=== PATIENT | male | born 1940 | race Caucasian/White ===

== ENCOUNTER 2017-11-25 13:02 | Emergency (ER) | payer OTHER ==
[2017-11-25 13:25] VITALS: TEMP 97.7
[2017-11-25] MEDS ORDERED: Morphine 5 MG/ML SYRINGE IVP STA (13:50)
[2017-11-25] MEDS ORDERED: Sodium Chloride 0.9% 500 ML IV STA (13:50)
--- NOTE | 2017-11-25 13:59 | ED PDOC ---
Arrival/HPI - General Chief Complaint: Abdominal Pain Time Seen by Provider: 11/25/17 13:50 Historian: Patient - History of Present Illness Narrative History of Present Illness (Text): 11/25/17 14:00 A 77 year old male, whose past medical history includes hyperlipidemia, hypertension, BPH, presents to the emergency department for < 1 day onset of general abdominal discomfort and generalized not feeling well/easily fatigued with concerning chills and tremors. The patient denies any subjective fever. He reports 3-4 episodes of non-bloody vomiting and 5-6 episodes of non-bloody diarrhea. + poor appetite is described; The patient denies any recent usage of antibiotics, chest pain, shortness of breath, palpitations, urinary changes, LOC , or any other complaints at this time. The patient is here for further evaluation and denies any other complaints Last colonoscopy was late last year and findings were normal. Time/Duration: Other (< 1 day ) Symptom Onset: Sudden Symptom Course: Unchanged Severity Level: Mild Activities at Onset: Light Context: Home Past Medical History - Provider Review Nursing Documentation Reviewed: Yes - Travel History Have you recently traveled outside [place] w/in the past 3 mons?: No - Past History Past History: No Previous - Infectious Disease Hx of Infectious Diseases: None - Cardiac Hx Cardiac Disorders: No - Pulmonary Hx Respiratory Disorders: No - Neurological Hx Neurological Disorder: No - HEENT Hx Cataracts: Yes - Renal Hx Renal Disorder: No - Endocrine/Metabolic Hx Endocrine Disorders: No - Hematological/Oncological Hx Blood Disorders: No - Integumentary Other/Comment: Rash - Musculoskeletal/Rheumatological Hx Musculoskeletal Disorders: No - Gastrointestinal Hx Gastrointestinal Disorders: No - Genitourinary/Gynecological Hx Prostate Problems: Yes - Psychiatric Hx Psychophysiologic Disorder: No Hx Substance Use: No - Surgical History Hx Cataract Extraction: Yes - Anesthesia Hx Anesthesia: Yes Hx Anesthesia Reactions: No Hx Malignant Hyperthermia: No Family/Social History - Physician Review Nursing Documentation Reviewed: Yes Family/Social History: No Known Family HX Smoking Status: Never Smoked Hx Alcohol Use: No Hx Substance Use: No Hx Substance Use Treatment: No Allergies/Home Meds Allergies/Adverse Reactions: Allergies No Known Allergies Allergy (Verified 11/25/17 13:12) Home Medications: Home Meds Medication Instructions Recorded Confirmed Lisinopril [Prinivil] 5 mg PO DAILY 11/25/17 11/25/17 Simvastatin [Zocor] 20 mg PO HS 11/25/17 11/25/17 Tamsulosin [Flomax] 0.4 mg PO DAILY 11/25/17 11/25/17 Review of Systems - Physician Review All systems were reviewed & negative as marked: Yes - Review of Systems Constitutional: Other (chills/tremors). absent: Fevers Respiratory: absent: SOB Cardiovascular: absent: Chest Pain Gastrointestinal: Abdominal Pain, Diarrhea, Nausea, Vomiting. absent: Appetite Changes, Hematochezia, Hematemesis Genitourinary Male: Normal Musculoskeletal: Normal Skin: Normal Neurological: Dizziness, Other (weakness) Endocrine: absent: Diaphoresis Hemo/Lymphatic: Normal Psychiatric: Normal Physical Exam Vital Signs Reviewed: Yes Vital Signs Temp Pulse Resp BP Pulse Ox 11/25/17 17:03 80 18 118/68 99 11/25/17 15:03 78 18 120/72 98 11/25/17 13:08 97.7 F 84 20 151/78 H 98 Temperature: Afebrile Blood Pressure: Hypertensive Pulse: Regular Respiratory Rate: Normal Appearance: Positive for: Well-Appearing, Non-Toxic, Uncomfortable, Other (alert /awake, GCS = 15, oriented x 3, resting in bed, cooperative, follows commands with ease) Pain Distress: None Mental Status: Positive for: Alert and Oriented X 3 - Systems Exam Head: Present: Atraumatic, Normocephalic Pupils: Present: PERRL, Other (no nystagmus, no photophobia, sclera anicteric) Extroacular Muscles: Present: EOMI Conjunctiva: Present: Normal Ears: Present: Normal Mouth: Present: Dry, Other (fair dentitions, no drooling/stridor, no exudate/ lesions, uvula/tonguge are midline) Pharnyx: Present: Normal Nose (External): Present: Atraumatic Nose (Internal): Present: Normal Inspection Neck: Present: Normal Range of Motion, Trachea Midline. No: MIDLINE TENDERNESS Respiratory/Chest: Present: Clear to Auscultation, Good Air Exchange, Other ( CTA b/l, no w/r/r, no accesory muscle use noted, no tachypenia). No: Respiratory Distress, Accessory Muscle Use Cardiovascular: Present: Regular Rate and Rhythm, Normal S1, S2. No: Murmurs Abdomen: Present: Normal Bowel Sounds, Other (diffuse mid b/l abd tenderness, mild mcburney's point tenderness, no spaulding's sign, well nourished male, no masses/rebound/guarding/rigidity). No: Tenderness, Distention, Peritoneal Signs Back: Present: Normal Inspection, Other (no midline tenderness, no CVAT b/l, no gross deformities). No: CVA Tenderness Upper Extremity: Present: Normal Inspection, Normal ROM, NORMAL PULSES, Neurovascularly Intact, Capillary Refill < 2s. No: Cyanosis, Edema Lower Extremity: Present: Normal Inspection, NORMAL PULSES, Neurovascularly Intact. No: Edema Neurological: Present: GCS=15, CN II-XII Intact, Speech Normal Skin: Present: Warm, Dry, Normal Color. No: Rashes Psychiatric: Present: Alert, Oriented x 3 Medical Decision Making ED Course and Treatment: 11/25/17 14:01 Impression: A 77 year old male with abdominal pain, nausea, vomiting, and diarrhea. I have considered all differential diagnoses regarding patients chief medical complaints/clinical findings which include but are not limited to: r/o diverticulitis, appy, gastroenteritis; dehydration Plan: -- VBG -- AB & PEL CT -- Chest X-ray -- Labs -- Pepcid, morphine, zofran, IV Fluids -- Urinalysis -- Reassess and disposition Progress Notes: 11/25/17 14:50 CT of Abdomen/pelvis reviewed by radiologist, shows no acute intra-abdominal findings 11/25/17 16:43 pt felt some improvement, has a small amount of headache awaiting pt's U/A results 11/25/17 18:08 Chest X-ray reviewed by radiologist, shows no active disease. 11/25/17 18:19 pt tolerated po well pt felt some improvement I spoke to Dr Pathak consulting utility forester for dr Rebollar who admits for Dr Rider, made aware of pt's medical presentation, if pt's condition require admission, Dr Pathak would like to contacted again pt is comfortable, NAD pt is given option to possibly discharge home vs admit as observation for monitor till the morning pt states he would rather be at home; family agrees pt/family are made aware of pt's medical results pt is encouraged fluids pt is encouraged bland diet pt will f/u as directed pt will be discharged home I spoke to Dr Rider, made aware of pt's medical results, agrees with ED mgt/txt , and if pt is comfortable going home, pt can f/u with Dr Rider in the office this coming week pt is made aware of my discussions with Dr Rider Re-evaluation Time: 16:42 Reassessment Condition: Improving,but remains with symptoms - Lab Interpretations Lab Results: 11/25/17 14:03 11/25/17 14:03 Lab Results 11/25/17 17:00: Urine Color Yellow, Urine Appearance Clear, Urine pH 6.5, Ur Specific [place] 1.010, Urine Protein Trace H, Urine Glucose (UA) Negative, Urine Ketones Negative, Urine Blood Negative, Urine Nitrate Negative, Urine Bilirubin Negative, Urine Urobilinogen 0.2, Ur Leukocyte Esterase Negative, Urine RBC Negative, Urine WBC 1 - 3, Ur Epithelial Cells 1 - 3, Urine Bacteria Few 11/25/17 14:10: pO2 40, VBG pH 7.29 L, VBG pCO2 52.0, VBG HCO3 25.0, VBG Total CO2 26.6, VBG O2 Sat (Calc) 80.9 H, VBG Base Excess -2.3 L, VBG Potassium 3.5 L , Glucose 123 H, Lactate 1.9, FiO2 21.0, Sodium 138.0, Chloride 105.0, Venous Blood Potassium 3.5 L 11/25/17 14:03: Sodium 140, Potassium 3.6, Chloride 103, Carbon Dioxide 26, Anion Gap 15, BUN 23 H, Creatinine 1.0, Est GFR ( Amer) > 60, Est GFR ( Non-Af Amer) > 60, Random Glucose 121 H, Calcium 9.6, Total Bilirubin 1.2, AST 27, ALT 55, Alkaline Phosphatase 61, Total Protein 7.2, Albumin 4.2, Globulin 3.0, Albumin/Globulin Ratio 1.4, Lipase 206 11/25/17 14:03: WBC 17.4 H, RBC 4.53, Hgb 16.6, Hct 48.0, MCV 106.0 H, MCH 36.6 H, MCHC 34.6, RDW 13.8, Plt Count 189, MPV 10.3, Gran % 91.2 H, Lymph % (Auto) 2.9 L, Nobles % (Auto) 5.3, Eos % (Auto) 0.5 L, Baso % (Auto) 0.1, Gran # 15.89 H , Lymph # (Auto) 0.5 L, Nobles # (Auto) 0.9 H, Eos # (Auto) 0.1, Baso # (Auto) 0.02, Neutrophils % (Manual) 92 H, Band Neutrophils % 2, Lymphocytes % (Manual) 2 L, Monocytes % (Manual) 4, Platelet Evaluation Normal I have reviewed the lab results: Yes Interpretation: Abnormal lab values (elevated WBCs; mild dehydration) - RAD Interpretation Narrative RAD Interpretations (Text): 11/25/17 16:43 PROCEDURE: CT Abdomen and Pelvis with contrast HISTORY: mid abd pain, diarrhea/vomiting x 1 day COMPARISON: None. TECHNIQUE: Contrast dose: 100 cc of Omni 350 Radiation dose: Total exam DLP = 480 mGy-cm. This CT exam was performed using one or more of the following dose reduction techniques: Automated exposure control, adjustment of the mA and/or kV according to patient size, and/or use of iterative reconstruction technique. FINDINGS: LOWER THORAX: Unremarkable. LIVER: Unremarkable. No gross lesion or ductal dilatation. GALLBLADDER AND BILE DUCTS: Unremarkable. PANCREAS: Unremarkable. No gross lesion or ductal dilatation. SPLEEN: Unremarkable. ADRENALS: Unremarkable. No mass. KIDNEYS AND URETERS: Unremarkable. No hydronephrosis. No solid mass. VASCULATURE: Unremarkable. No aortic aneurysm. BOWEL: Unremarkable. No obstruction. No gross mural thickening. Fluid-filled loops of small bowel are seen. There is no mural thickening. The colon is unremarkable APPENDIX: Normal appendix. PERITONEUM: Unremarkable. No free fluid. No free air. LYMPH NODES: Unremarkable. No enlarged lymph nodes. BLADDER: Unremarkable. REPRODUCTIVE: Unremarkable. BONES: There is a moderate compression fracture of L2. This is probably chronic OTHER FINDINGS: None. IMPRESSION: No acute intra-abdominal findings 11/25/17 18:08 11/25/17 18:25 HISTORY: n/v/d COMPARISON: No prior. TECHNIQUE: Chest PA and lateral FINDINGS: LUNGS: No active pulmonary disease. PLEURA: No significant pleural effusion identified. No pneumothorax apparent. CARDIOVASCULAR: Normal. OSSEOUS STRUCTURES: No significant abnormalities. VISUALIZED UPPER ABDOMEN: Normal. OTHER FINDINGS: None. IMPRESSION: No active disease. Radiology Orders: 11/25/17 13:51 ABD & PELVIS IV CONTRAST ONLY [CT] Stat 11/25/17 13:52 CHEST TWO VIEWS (PA/LAT) [RAD] Stat Condenser Tester: Radiologist - EKG Interpretation EKG Interpretation (Text): 11/25/17 14:41 Sinus melany at 60 bpm, normal axis, no ectopy, incomplete RBBB, no st changes, ABNL EKG; no old ekg to compare with Interpreted by ED Physician: Yes Type: 12 lead EKG Comparison: No previous EKG avail. - Medication Orders Current Medication Orders: Discontinued Medications Famotidine (Pepcid) 20 mg IVP STAT STA Stop: 11/25/17 13:51 Last Admin: 11/25/17 14:04 Dose: 20 mg IVP Administration Document 11/25/17 14:04 EWO (Rec: 11/25/17 14:04 O [id number]) Charges for Administration # of IVP Administrations 1 Sodium Chloride (Sodium Chloride 0.9%) 500 mls @ 1,000 mls/hr IV .Q30M STA Stop: 11/25/17 14:19 Last Admin: 11/25/17 14:03 Dose: 1,000 mls/hr eMAR Start Stop Document 11/25/17 14:03 EWO (Rec: 11/25/17 14:04 O [id number]) Intravenous Solution Start Date 11/25/17 Start Time 14:03 End Date 11/25/17 End time 14:33 Total Infusion Time 30 Morphine Sulfate (Morphine) 4 mg IVP STAT STA Stop: 11/25/17 13:51 Last Admin: 11/25/17 14:04 Dose: 4 mg IVP Administration Document 11/25/17 14:04 EWO (Rec: 11/25/17 14:04 O [id number]) Charges for Administration # of IVP Administrations 1 Ondansetron HCl (Zofran Inj) 4 mg IVP STAT STA Stop: 11/25/17 13:51 Last Admin: 11/25/17 14:04 Dose: 4 mg IVP Administration Document 11/25/17 14:04 EWO (Rec: 11/25/17 14:04 EWO [id number]) Charges for Administration # of IVP Administrations 1 - Scribe Statement The provider has reviewed the documentation as recorded by the Shanteibvenecia Puckett Provider Scribe Attestation: All medical record entries made by the Scribe were at my direction and personally dictated by me. I have reviewed the chart and agree that the record accurately reflects my personal performance of the history, physical exam, medical decision making, and the department course for this patient. I have also personally directed, reviewed, and agree with the discharge instructions and disposition. Disposition/Present on Arrival - Present on Arrival Any Indicators Present on Arrival: No History of DVT/PE: No History of Uncontrolled Diabetes: No Urinary Catheter: No History of Decub. Ulcer: No History Surgical Site Infection Following: None - Disposition Have Diagnosis and Disposition been Completed?: Yes Diagnosis: Epigastric abdominal pain, Diarrhea, Vomiting, Dehydration Disposition: HOME/ ROUTINE Disposition Time: 18:14 Patient Plan: Discharge Patient Problems: Current Active Problems Problem Status Onset Dehydration Acute Diarrhea Acute Epigastric abdominal pain Acute Vomiting Acute Condition: STABLE Discharge Instructions (ExitCare): Dehydration (ED), Epigastric Pain (ED), Acute Diarrhea (ED), Acute Nausea and Vomiting (ED) Print Language: NEPALI Additional Instructions: Make sure to see your doctor in 1-2 days BLAND DIET is encouraged DRINK PLENTY OF FLUIDS take your medications as prescribed RETURN TO ED IF worse pain, cant breath, persistent vomiting, high fever >101- 102 for hours, altered behavior, bloody diarrhea, unable to urinate, heavy/ persistent bleeding, passing out, chest pain, or other medical emergencies Prescriptions: Famotidine [Pepcid] 20 mg PO BID #14 tab Ondansetron ODT [Zofran ODT] 4 mg PO TID PRN #12 odt PRN Reason: Nausea/Vomiting Referrals: Tye Rider MD [Primary Care Provider] - Follow up with primary Forms: [employer] ([place])
[2017-11-25 14:19] LABS: BASO # 0.02 K/mm3 (0.0-2.0); BASO % 0.1 % (0.0-3.0); EOS # 0.1 (0.0-0.7); EOS % 0.5 % (1.5-5.0); GRAN # 15.89 (1.4-6.5); GRAN % 91.2 % (50.0-68.0); HEMOGLOBIN 16.6 g/dL (14.0-18.0); LYMPH # 0.5 (1.2-3.4); LYMPH % 2.9 % (22.0-35.0); MEAN CORPUSCULAR HEMOGLOBIN 36.6 pg (25.0-35.0); MEAN CORPUSCULAR HGB CONC 34.6 g/dl (31.0-37.0); MEAN PLATELET VOLUME 10.3 fl (7.0-11.0); MONO # 0.9 (0.1-0.6); MONO % 5.3 % (1.0-6.0); PLATELET COUNT 189 10^3/uL (120.0-450.0); RBC 4.53 10^6/uL (3.5-6.1); RED CELL DISTRIBUTION WIDTH 13.8 % (11.5-14.5); WHITE BLOOD COUNT 17.4 10^3/ul (4.5-11.0)
[2017-11-25 14:27] LABS: ALB/GLOB RATIO 1.4 (1.1-1.8); ALBUMIN 4.2 g/dL (3.0-4.8); ALT/SGPT 55 U/L (7-56); AST/SGOT 27 U/L (17-59); BLOOD UREA NITROGEN 23 mg/dL (7-21); CALCIUM 9.6 mg/dL (8.4-10.5); GFR AFRICAN-AMERICAN > 60; GFR NON-AFRICAN AMERICAN > 60; LIPASE 206 U/L (23-300)
[2017-11-25 14:33] LABS: VENOUS BLOOD GAS BASE EXCESS -2.3 mmol/L (0.0-2.0); VENOUS BLOOD GAS PO2 40 mm/Hg (30-55); VENOUS BLOOD PH 7.29 (7.32-7.43)
[2017-11-25] MEDS ORDERED: Iohexol 350 MG/100 ML VIAL ONE (15:31)
[2017-11-25 15:33] LABS: BAND 2 % (0-2); NEUTROPHIL 92 % (50.0-70.0)
[2017-11-25 15:34] LABS: LYMPHOCYTE 2 % (22.0-35.0); MONOCYTE 4 % (1.0-6.0); PLATELET ESTIMATE NORMAL (NORMAL)
--- NOTE | 2017-11-25 16:30 | CT ---
PROCEDURE: CT Abdomen and Pelvis with contrast HISTORY: mid abd pain, diarrhea/vomiting x 1 day COMPARISON: None. TECHNIQUE: Contrast dose: 100 cc of Omni 350 Radiation dose: Total exam DLP = 480 mGy-cm. This CT exam was performed using one or more of the following dose reduction techniques: Automated exposure control, adjustment of the mA and/or kV according to patient size, and/or use of iterative reconstruction technique. FINDINGS: LOWER THORAX: Unremarkable. LIVER: Unremarkable. No gross lesion or ductal dilatation. GALLBLADDER AND BILE DUCTS: Unremarkable. PANCREAS: Unremarkable. No gross lesion or ductal dilatation. SPLEEN: Unremarkable. ADRENALS: Unremarkable. No mass. KIDNEYS AND URETERS: Unremarkable. No hydronephrosis. No solid mass. VASCULATURE: Unremarkable. No aortic aneurysm. BOWEL: Unremarkable. No obstruction. No gross mural thickening. Fluid-filled loops of small bowel are seen. There is no mural thickening. The colon is unremarkable APPENDIX: Normal appendix. PERITONEUM: Unremarkable. No free fluid. No free air. LYMPH NODES: Unremarkable. No enlarged lymph nodes. BLADDER: Unremarkable. REPRODUCTIVE: Unremarkable. BONES: There is a moderate compression fracture of L2. This is probably chronic OTHER FINDINGS: None. IMPRESSION: No acute intra-abdominal findings
--- NOTE | 2017-11-25 16:56 | RAD ---
HISTORY: n/v/d COMPARISON: No prior. TECHNIQUE: Chest PA and lateral FINDINGS: LUNGS: No active pulmonary disease. PLEURA: No significant pleural effusion identified. No pneumothorax apparent. CARDIOVASCULAR: Normal. OSSEOUS STRUCTURES: No significant abnormalities. VISUALIZED UPPER ABDOMEN: Normal. OTHER FINDINGS: None. IMPRESSION: No active disease.
[2017-11-25 17:14] LABS: PH,URINE 6.5 (4.7-8.0); URINE BILIRUBIN NEGATIVE (NEGATIVE); URINE BLOOD NEGATIVE (NEGATIVE); URINE GLUCOSE (UA) NEGATIVE (NEGATIVE); URINE LEUKOCYTE ESTERASE NEGATIVE Leu/uL (NEGATIVE); URINE NITRATE NEGATIVE (NEGATIVE); URINE PROTEIN TRACE mg/dL (<30 mg/dL); URINE UROBILINOGEN 0.2 E.U./dL (<1 E.U./dL)
[2017-11-25 17:18] LABS: URINE APPEARANCE CLEAR (CLEAR); URINE COLOR YELLOW (YELLOW)
[2017-11-25 17:27] LABS: URINE BACTERIA FEW (NEG); URINE RBC NEGATIVE /hpf (0-2)
[2017-11-25 17:56] VITALS: BP 118/68; PULSE 80; RESP 18; O2SAT 99
--- NOTE | 2017-11-26 11:56 | CARD ---
APPROVED REPORT EKG Measurement Heart [id number] <Conclusion> Sinus bradycardia Incomplete right bundle branch block Borderline ECG
== END 2017-11-25 18:26 | disposition home or self-care (01) ==
LOC: ED 13:02
DX: E86.0 Dehydration (principal); R10.13 Epigastric pain; R19.7 Diarrhea, unspecified; R11.2 Nausea with vomiting, unspecified; I10 Essential (primary) hypertension; E78.5 Hyperlipidemia, unspecified
CPT/HCPCS: 71046; 74177; 80053; 81001; 82803; 83690; 85025; 87086; 93005; 96374; 96375; 99284; J2270; J2405; J7040; Q9967

== ENCOUNTER 2018-03-02 05:45 | Emergency (ER) | payer MEDICARE, OTHER ==
--- NOTE | 2018-03-02 07:42 | ED PDOC ---
Arrival/HPI - General Chief Complaint: ENT Problem Time Seen by Provider: 03/02/18 07:15 Historian: Patient - History of Present Illness Narrative History of Present Illness (Text): 03/02/18 07:39 77 year old male, whose past medical history includes hyperlipidemia, hypertension, BPH, who presents to the emergency department complaining of persistent bleeding to a wound since 22:00 last night. Patient states that he supposedly saw Dr. Guido who took a mole off of his neck earlier this week and has been bleeding since last night. At present, patient is minimally bleeding in the emergency department. Patient denies any fevers, chills, or any other complaints a this time. Time/Duration: Other (since 22:00 last night) Symptom Course: Unchanged Activities at Onset: Light Context: Home Past Medical History - Provider Review Nursing Documentation Reviewed: Yes - Past History Past History: No Previous - Infectious Disease Hx of Infectious Diseases: None - Cardiac Hx Cardiac Disorders: No Hx Hypertension: Yes - Pulmonary Hx Respiratory Disorders: No - Neurological Hx Neurological Disorder: No - HEENT Hx Cataracts: Yes - Renal Hx Renal Disorder: No - Endocrine/Metabolic Hx Endocrine Disorders: No - Hematological/Oncological Hx Blood Disorders: No - Integumentary Other/Comment: Rash - Musculoskeletal/Rheumatological Hx Musculoskeletal Disorders: No - Gastrointestinal Hx Gastrointestinal Disorders: No - Genitourinary/Gynecological Hx Prostate Problems: Yes - Psychiatric Hx Psychophysiologic Disorder: No Hx Substance Use: No - Surgical History Hx Cataract Extraction: Yes - Anesthesia Hx Anesthesia: Yes Hx Anesthesia Reactions: No Hx Malignant Hyperthermia: No Family/Social History - Physician Review Nursing Documentation Reviewed: Yes Family/Social History: No Known Family HX Smoking Status: Never Smoked Hx Alcohol Use: No Hx Substance Use: No Hx Substance Use Treatment: No Allergies/Home Meds Allergies/Adverse Reactions: Allergies No Known Allergies Allergy (Verified 03/02/18 06:22) Home Medications: Home Meds Medication Instructions Recorded Confirmed Lisinopril [Prinivil] 5 mg PO DAILY 11/25/17 03/02/18 Simvastatin [Zocor] 20 mg PO HS 11/25/17 03/02/18 Tamsulosin [Flomax] 0.4 mg PO DAILY 11/25/17 03/02/18 Review of Systems - Physician Review All systems were reviewed & negative as marked: Yes - Review of Systems Constitutional: absent: Fevers, Night Sweats Eyes: absent: Vision Changes ENT: absent: Hearing Changes Respiratory: absent: SOB, Cough Cardiovascular: absent: Chest Pain Gastrointestinal: absent: Abdominal Pain Genitourinary Male: absent: Dysuria Musculoskeletal: absent: Arthralgias Skin: Other (Bleeding wound to base of neck) Neurological: absent: Headache, Dizziness Endocrine: absent: Diaphoresis Hemo/Lymphatic: absent: Adenopathy Physical Exam Vital Signs Reviewed: Yes Vital Signs Temp Pulse Resp BP Pulse Ox 03/02/18 08:39 98.2 F 80 16 160/78 H 98 03/02/18 08:37 98.2 F 80 18 160/76 H 97 03/02/18 06:15 98.0 F 88 18 149/89 98 Temperature: Afebrile Blood Pressure: Normal Pulse: Regular Respiratory Rate: Normal Appearance: Positive for: Well-Appearing, Non-Toxic, Comfortable Pain Distress: None Mental Status: Positive for: Alert and Oriented X 3 - Systems Exam Skin: Present: Laceration (2.5 laceration to the midline base of neck, right over sternal notch) Medical Decision Making ED Course and Treatment: 03/02/18 07:30 Impression: 77 year old male complaining of persistent bleeding to a wound at the base of his neck since 22:00 last night. Plan: -- Suture procedure -- Reassess and disposition Prior Visits: Notes and results from previous visits were reviewed. Patient was last seen in the emergency department on 11/23/17 for < 1 day onset of general abdominal discomfort and generalized not feeling well/easily fatigued with concerning chills and tremors. Progress Notes: 03/02/18 07:[address] Guido, oncologist, who states that he does not know the patient but advises to suture the wound. - Medication Orders Current Medication Orders: Discontinued Medications Lidocaine HCl (Lidocaine 1% (20ml)) 20 ml SC STAT STA Stop: 03/02/18 07:50 - Scribe Statement The provider has reviewed the documentation as recorded by the Radha Freire Provider Scribe Attestation: All medical record entries made by the Scribe were at my direction and personally dictated by me. I have reviewed the chart and agree that the record accurately reflects my personal performance of the history, physical exam, medical decision making, and the department course for this patient. I have also personally directed, reviewed, and agree with the discharge instructions and disposition. Disposition/Present on Arrival - Present on Arrival Any Indicators Present on Arrival: No History of DVT/PE: No History of Uncontrolled Diabetes: No Urinary Catheter: No History of Decub. Ulcer: No History Surgical Site Infection Following: None - Disposition Have Diagnosis and Disposition been Completed?: Yes Diagnosis: Post-op bleeding Disposition: HOME/ ROUTINE Disposition Time: 08:27 Patient Plan: Discharge Condition: GOOD Discharge Instructions (ExitCare): Laceration Repair Additional Instructions: Please follow up with the doctor who took off the mole. The stitch can come out in 7 days (next Monday or the following Monday). Return to us if any problems. Best- Dr. Graeme Bazzi Referrals: Tye Rider MD [Primary Care Provider] - Follow up with primary Forms: [employer] ([place])
[2018-03-02] MEDS ORDERED: Lidocaine 1% Inj (20ml) SC STA (07:49)
[2018-03-02] MEDS ORDERED: Lidocaine 1% Inj (20ml) ONE (07:49)
[2018-03-02 08:38] VITALS: PULSE 80; TEMP 98.2
[2018-03-02 08:40] VITALS: BP 160/78; RESP 16; O2SAT 98
== END 2018-03-02 08:39 | disposition home or self-care (01) ==
LOC: ED 05:45
DX: L76.22 Postprocedural hemorrhage of skin and subcutaneous tissue following other procedure (principal); E78.5 Hyperlipidemia, unspecified; I10 Essential (primary) hypertension; N40.0 Benign prostatic hyperplasia without lower urinary tract symptoms

== ENCOUNTER 2018-05-15 13:47 | Emergency (ER) | payer MEDICARE, OTHER ==
[2018-05-15 13:52] VITALS: BMI 24.4
--- NOTE | 2018-05-15 13:57 | ED PDOC ---
Arrival/HPI - General Time Seen by Provider: 05/15/18 13:49 Historian: Patient - History of Present Illness Narrative History of Present Illness (Text): 05/15/18 14:30\ 77 year old male, whose PMH includes hypertension and prostate problems, who presents to the emergency department complaining of right sided flank pain that radiates to mid-sternal chest since 3 days ago. Patient reports he has take Advil with no significant relief. Patient denies any falls or trauma, nausea, vomiting, diarrhea, shortness of breath, headache, or other complaints. PMD: Dr. Rider Time/Duration: < week Symptom Onset: Sudden Symptom Course: Unchanged Context: Home Past Medical History - Provider Review Nursing Documentation Reviewed: Yes - Past History Past History: No Previous - Infectious Disease Hx of Infectious Diseases: None - Cardiac Hx Cardiac Disorders: No Hx Hypertension: Yes - Pulmonary Hx Respiratory Disorders: No - Neurological Hx Neurological Disorder: No - HEENT Hx Cataracts: Yes - Renal Hx Renal Disorder: No - Endocrine/Metabolic Hx Endocrine Disorders: No - Hematological/Oncological Hx Blood Disorders: No - Integumentary Other/Comment: Rash - Musculoskeletal/Rheumatological Hx Musculoskeletal Disorders: No - Gastrointestinal Hx Gastrointestinal Disorders: No - Genitourinary/Gynecological Hx Prostate Problems: Yes - Psychiatric Hx Psychophysiologic Disorder: No Hx Substance Use: No - Surgical History Hx Cataract Extraction: Yes - Anesthesia Hx Anesthesia: Yes Hx Anesthesia Reactions: No Hx Malignant Hyperthermia: No Family/Social History - Physician Review Nursing Documentation Reviewed: Yes Family/Social History: Unknown Family HX Smoking Status: Never Smoked Hx Alcohol Use: No Hx Substance Use: No Hx Substance Use Treatment: No Allergies/Home Meds Allergies/Adverse Reactions: Allergies No Known Allergies Allergy (Verified 03/02/18 06:22) Home Medications: Home Meds Medication Instructions Recorded Confirmed Lisinopril [Prinivil] 5 mg PO DAILY 11/25/17 03/02/18 Simvastatin [Zocor] 20 mg PO HS 11/25/17 03/02/18 Tamsulosin [Flomax] 0.4 mg PO DAILY 11/25/17 03/02/18 Review of Systems - Physician Review All systems were reviewed & negative as marked: Yes - Review of Systems Respiratory: absent: SOB Cardiovascular: absent: Chest Pain Musculoskeletal: Other (right sided flank pain that radiates to mid-sternum ) Physical Exam - Physical Exam Narrative Physical Exam (Text): 05/15/18 Constitutional: No acute distress. Head: Normocephalic. Atraumatic. Eyes: PERRL. ENT: Moist mucous membranes. Neck: Supple. Cardiovascular: (+) tachycardia Chest: No tenderness. Respiratory: Clear to auscultation bilaterally. GI: Soft. Nontender. Nondistended. Back: No CVA tenderness. Musculoskeletal: (+) tenderness and swelling on right axilla/flank. Skin: No rash. Neurologic: Alert, no focal deficit. Vital Signs Reviewed: Yes Vital Signs Temp Pulse Resp BP Pulse Ox 05/15/18 16:14 99 F 84 18 135/78 97 05/15/18 14:05 98.3 F 116 H 18 122/79 95 Temperature: Afebrile Blood Pressure: Normal Pulse: Tachycardic Respiratory Rate: Normal Appearance: Positive for: Well-Appearing, Non-Toxic, Comfortable Pain Distress: None Mental Status: Positive for: Alert and Oriented X 3 Medical Decision Making ED Course and Treatment: 05/15/18 Impression: 77 year old male with right sided flank and axilla tenderness and swelling complaining of right sided flank pain since 3 days Plan: -- EKG -- Chest CT -- Labs -- Reassess and disposition Progress Notes: EKG: Ordered, reviewed, and independently interpreted the EKG. Rate : 120 BPM Rhythm : sinus tachycardia Interpretation: QRS [address] elevations Enzymes negative in this pain of [address] shows no PE or fracture. Discharged home, f/u PMD, return to ED for worsening pain, fever, vomiting, or dyspnea. FINDINGS: PULMONARY ARTERIES: Unremarkable. No pulmonary embolism. AORTA: No acute findings. No thoracic aortic aneurysm. LUNGS: Unremarkable. No nodule, mass or pulmonary consolidation. PLEURAL SPACES: Unremarkable. No effusion or pneumothorax. HEART: Unremarkable. No cardiomegaly. No significant pericardial effusion. LYMPH NODES: No lymphadenopathy. BONES, CHEST WALL: Unremarkable. No fracture or destructive lesion OTHER FINDINGS: Unremarkable. IMPRESSION: Unremarkable CT pulmonary angiogram. No pulmonary embolus. - Lab Interpretations Lab Results: 05/15/18 14:20 05/15/18 14:20 Lab Results 05/15/18 14:20: Sodium 139, Potassium 3.8, Chloride 103, Carbon Dioxide 26, Anion Gap 13, BUN 12, Creatinine 0.8, Est GFR ( Amer) > 60, Est GFR (Non- Af Amer) > 60, Random Glucose 125 H, Calcium 8.9, Total Bilirubin 0.6, AST 21, ALT 36, Alkaline Phosphatase 48, Total Creatine Kinase < 20 L, Troponin I < 0.01 , Total Protein 6.1, Albumin 3.6, Globulin 2.6, Albumin/Globulin Ratio 1.4 05/15/18 14:20: WBC 9.1 D, RBC 3.53, Hgb 12.7 L D, Hct 35.9 L, MCV 101.7 D, MCH 36.0 H, MCHC 35.4, RDW 15.0 H, Plt Count 209, MPV 9.2, Gran % 74.4 H, Lymph % (Auto) 15.9 L, Fajardo % (Auto) 9.3 H, Eos % (Auto) 0.2 L, Baso % (Auto) 0.2, Gran # 6.76 H, Lymph # (Auto) 1.4, Fajardo # (Auto) 0.8 H, Eos # (Auto) 0.0, Baso # (Auto) 0.02 I have reviewed the lab results: Yes - RAD Interpretation Radiology Orders: 05/15/18 14:34 ANGIO CHEST PE PROTOCOL [CT] Stat Plasterer Foreman: Radiologist - EKG Interpretation Interpreted by ED Physician: Yes Type: 12 lead EKG - Medication Orders Current Medication Orders: Discontinued Medications Ketorolac Tromethamine (Toradol) 30 mg IVP STAT STA Stop: 05/15/18 16:05 Last Admin: 05/15/18 16:12 Dose: 30 mg MAR Pain Assessment Document 05/15/18 16:12 SRE (Rec: 05/15/18 16:13 SRE [id number]) Pain Reassessment Is this a pain reassessment? Yes Sleep Is patient sleeping during reassessment? No Presence of Pain Presence of Pain Yes Pain Scale Used Pain Scale Used Numeric Location Left, Right or Bilateral Right Pain Location Body Site Back Description Description Intermittent IVP Administration Document 05/15/18 16:12 SRE (Rec: 05/15/18 16:13 SRE [id number]) Charges for Administration # of IVP Administrations 1 - Scribe Statement The provider has reviewed the documentation as recorded by the Radha Dumont Provider Scribe Attestation: All medical record entries made by the Shanteibe were at my direction and personally dictated by me. I have reviewed the chart and agree that the record accurately reflects my personal performance of the history, physical exam, medical decision making, and the department course for this patient. I have also personally directed, reviewed, and agree with the discharge instructions and disposition. Disposition/Present on Arrival - Present on Arrival Any Indicators Present on Arrival: No History of DVT/PE: No History of Uncontrolled Diabetes: No Urinary Catheter: No History Surgical Site Infection Following: None - Disposition Have Diagnosis and Disposition been Completed?: Yes Diagnosis: Chest wall pain Disposition: HOME/ ROUTINE Disposition Time: 16:01 Patient Plan: Discharge Condition: STABLE Discharge Instructions (ExitCare): Muscle and Bone Pain (DC) Prescriptions: Ibuprofen [Motrin] 1 tab PO Q6 #30 tab Referrals: Tye Rider MD [Primary Care Provider] - Follow up with primary Forms: [email or web address] ([place]ian)
[2018-05-15 14:08] VITALS: RESP 18
[2018-05-15 14:50] LABS: BASO # 0.02 K/mm3 (0.0-2.0); BASO % 0.2 % (0.0-3.0); EOS % 0.2 % (1.5-5.0); GRAN # 6.76 (1.4-6.5); GRAN % 74.4 % (50.0-68.0); HEMOGLOBIN 12.7 g/dL (14.0-18.0); LYMPH # 1.4 (1.2-3.4); LYMPH % 15.9 % (22.0-35.0); MEAN CELL VOLUME 101.7 fl (80.0-105.0); MEAN CORPUSCULAR HGB CONC 35.4 g/dl (31.0-37.0); MEAN PLATELET VOLUME 9.2 fl (7.0-11.0); MONO # 0.8 (0.1-0.6); MONO % 9.3 % (1.0-6.0); RBC 3.53 10^6/uL (3.5-6.1); WHITE BLOOD COUNT 9.1 10^3/ul (4.5-11.0)
[2018-05-15 14:58] LABS: ALB/GLOB RATIO 1.4 (1.1-1.8); ALBUMIN 3.6 g/dL (3.0-4.8); ALT/SGPT 36 U/L (7-56); AST/SGOT 21 U/L (17-59); BLOOD UREA NITROGEN 12 mg/dL (7-21); CALCIUM 8.9 mg/dL (8.4-10.5); GFR AFRICAN-AMERICAN > 60; GFR NON-AFRICAN AMERICAN > 60
[2018-05-15 15:09] LABS: TROPONIN I < 0.01 ng/mL
[2018-05-15] MEDS ORDERED: Iohexol 350 MG/100 ML VIAL ONE (15:18)
--- NOTE | 2018-05-15 15:46 | CT ---
Date of service: 05/15/2018 PROCEDURE: CT Chest with contrast (Pulmonary Angiogram) HISTORY: R sided thoracic pain, tachycardia COMPARISON: None available. TECHNIQUE: Axial computed tomography images were obtained of the chest in the pulmonary arterial phase of enhancement. Coronal and sagittal reformatted images were created and reviewed. Intravenous contrast dose: 100 cc of Omni 350 Radiation dose: Total exam DLP = 391 mGy-cm. This CT exam was performed using one or more of the following dose reduction techniques: Automated exposure control, adjustment of the mA and/or kV according to patient size, and/or use of iterative reconstruction technique. FINDINGS: PULMONARY ARTERIES: Unremarkable. No pulmonary embolism. AORTA: No acute findings. No thoracic aortic aneurysm. LUNGS: Unremarkable. No nodule, mass or pulmonary consolidation. PLEURAL SPACES: Unremarkable. No effusion or pneumothorax. HEART: Unremarkable. No cardiomegaly. No significant pericardial effusion. LYMPH NODES: No lymphadenopathy. BONES, CHEST WALL: Unremarkable. No fracture or destructive lesion OTHER FINDINGS: Unremarkable. IMPRESSION: Unremarkable CT pulmonary angiogram. No pulmonary embolus.
[2018-05-15 16:22] VITALS: BP 135/78; PULSE 84; TEMP 99; O2SAT 97
--- NOTE | 2018-05-15 17:59 | CARD ---
APPROVED REPORT Date of service: 05/15/2018 EKG Measurement Heart [id number] <Conclusion> Sinus tachycardia Incomplete right bundle branch block Borderline ECG
== END 2018-05-15 16:14 | disposition home or self-care (01) ==
LOC: ED 13:47
DX: R07.89 Other chest pain (principal); I10 Essential (primary) hypertension
CPT/HCPCS: 71275; 80053; 82550; 84484; 85025; 93005; 96374; 99283; J1885; Q9967

== ENCOUNTER 2018-05-18 12:12 | Inpatient (IN) | payer MEDICARE, OTHER ==
[2018-05-18 12:12] VITALS: BMI 24.4
[2018-05-18] MEDS ORDERED: Sodium Chloride 0.9% 500 ML IV ONE (12:53)
--- NOTE | 2018-05-18 13:06 | ED PDOC ---
Arrival/HPI - General Chief Complaint: Chest Pain Time Seen by Provider: 05/18/18 12:44 Historian: Patient - History of Present Illness Narrative History of Present Illness (Text): 05/18/18 13:01 A 77 year old male, whose past medical history includes hyperlipidemia, hypertension, BPH, presents to the emergency room with a complaint of right sided flank pain. Patient reports that he was at Dr. Rider's office who sent him to the emergency room for further evaluation of his 1 week duration right sided severe flank and abdominal ecchymosis. Patient states that he was seen at [facility] yesterday for similar complaints where he had a Chest CT and Abdomen/ Pelvis CT. He was instructed to follow up with his PMD. The patient is a non- smoker/non-drinker. The patient denies fevers, chills, headache, dizziness, sore throat, cough, chest pain, shortness of breath, dyspnea on exertion, abdominal pain, nausea, vomiting, diarrhea, neck/back pain, urinary/bowel changes or any other complaint. PMD: Dr. Rider Time/Duration: Prior to Arrival Symptom Onset: Sudden Symptom Course: Unchanged Activities at Onset: Rest, Light Context: Home Associated Symptoms (Text): 05/18/18 13:56 Daughter reports approximately a one-week history of severe ecchymosis of the right side of the abdomen and right flank. No known injury or trauma. He was seen in the emergency department here and had a normal CT scan of the chest three days ago. Daughter reports that the patient was seen at another hospital emergency department yesterday. She reports that he had a normal CT scan of the chest abdomen and pelvis. He was directed to follow with his PMD. He saw Dr. Rider this morning who directed him to the emergency department. He was vomiting earlier today. No diarrhea. No fever. No known injury or trauma. Past Medical History - Provider Review Nursing Documentation Reviewed: Yes - Past History Past History: No Previous - Infectious Disease Hx of Infectious Diseases: None - Cardiac Hx Cardiac Disorders: No Hx Hypertension: Yes - Pulmonary Hx Respiratory Disorders: No - Neurological Hx Neurological Disorder: No - HEENT Hx Cataracts: Yes - Renal Hx Renal Disorder: No - Endocrine/Metabolic Hx Endocrine Disorders: No - Hematological/Oncological Hx Blood Disorders: No - Integumentary Other/Comment: Rash - Musculoskeletal/Rheumatological Hx Musculoskeletal Disorders: No - Gastrointestinal Hx Gastrointestinal Disorders: No - Genitourinary/Gynecological Hx Prostate Problems: Yes - Psychiatric Hx Psychophysiologic Disorder: No Hx Substance Use: No - Surgical History Hx Cataract Extraction: Yes - Anesthesia Hx Anesthesia: Yes Hx Anesthesia Reactions: No Hx Malignant Hyperthermia: No Family/Social History - Physician Review Nursing Documentation Reviewed: Yes Family/Social History: No Known Family HX Smoking Status: Never Smoked Hx Alcohol Use: No Hx Substance Use: No Hx Substance Use Treatment: No Allergies/Home Meds Allergies/Adverse Reactions: Allergies No Known Allergies Allergy (Verified 05/18/18 12:51) Home Medications: Home Meds Medication Instructions Recorded Confirmed Lisinopril [Prinivil] 5 mg PO DAILY 11/25/17 05/18/18 Simvastatin [Zocor] 40 mg PO HS 11/25/17 05/18/18 Tamsulosin [Flomax] 0.4 mg PO DAILY 11/25/17 05/18/18 Finasteride [Proscar] 5 mg PO DAILY 05/18/18 05/18/18 Review of Systems - Physician Review All systems were reviewed & negative as marked: Yes - Review of Systems Constitutional: Fatigue. absent: Fevers, Night Sweats Eyes: Other (Blind) ENT: absent: Sore Throat Respiratory: absent: SOB, Cough Gastrointestinal: Vomiting. absent: Abdominal Pain (ecchymosis of right abdomen ), Stool Changes, Diarrhea, Nausea Genitourinary Male: absent: Urinary Output Changes Musculoskeletal: Back Pain (ecchymosis to the right flank area). absent: Neck Pain Neurological: absent: Headache, Dizziness, Focal Weakness Physical Exam Vital Signs Reviewed: Yes Vital Signs Temp Pulse Resp BP Pulse Ox 05/18/18 17:16 98.6 F 104 H 20 155/59 H 100 05/18/18 15:04 98.6 F 05/18/18 12:33 98 H 23 150/71 100 05/18/18 12:24 98 F 105 H 20 150/71 99 Temperature: Afebrile Blood Pressure: Normal Pulse: Tachycardic Respiratory Rate: Normal Appearance: Positive for: Well-Appearing, Non-Toxic, Comfortable Pain Distress: None Mental Status: Positive for: Alert and Oriented X 3 - Systems Exam Head: Present: Atraumatic, Normocephalic Pupils: Present: Other (Blind) Extroacular Muscles: Present: EOMI Ears: Present: NORMAL TM, Normal Canal. No: Erythema, TM Bulging Mouth: Present: Moist Mucous Membranes Pharnyx: No: ERYTHEMA, EXUDATE, TONSILS ENLARGED Neck: Present: Normal Range of Motion Respiratory/Chest: Present: Decreased Breath Sounds (Diminished breath sounds). No: Respiratory Distress Cardiovascular: Present: Regular Rate and Rhythm, Normal S1, S2. No: Murmurs Abdomen: Present: Other (Severe ecchymosis of the entire right side of the abdomen and right flank). No: Tenderness, Distention, Peritoneal Signs, Rebound , Guarding Back: Present: Normal Inspection Upper Extremity: Present: Normal Inspection. No: Cyanosis, Edema Lower Extremity: Present: Normal Inspection. No: Edema Neurological: Present: GCS=15, CN II-XII Intact, Speech Normal, Motor Func Grossly Intact Skin: Present: Warm, Dry, Abrasion (Superficial abrasion to the left shoulder. ) , Other (Severe ecchymosis to the right abdomen and flank.). No: Rashes Psychiatric: Present: Alert, Oriented x 3, Normal Insight, Normal Concentration Medical Decision Making ED Course and Treatment: 05/18/18 13:08 Impression: A 77 year old male presents to the emergency room sent in by Dr. Rider for further evaluation of ecchymosis to his right abdomen and flank. Plan: -- EKG -- Chest X-ray -- Labs -- Urinalysis -- Zofran and IV Fluids -- Reassess and disposition Progress Notes: 05/18/18 14:00 EKG shows normal sinus rhythm rate approximately [address] or T-wave changes. Chest X-ray Dictator : Eron Singh MD Report Date : 05/18/2018 13:35:32 IMPRESSION: No active disease. 05/18/18 16:14: Case discussed in detail with Dr. Dewitt who accepts patient to his service. 05/18/18 16:18 Patient has dropped his hemoglobin from 16 in November to 12.7 three days ago and to 7.8 today. I believe that this may be in his flank and abdomen. 05/18/18 16:20 Even though the patient is reporting a normal CT chest abdomen pelvis yesterday at a different hospital emergency department I have ordered a CT scan of the abdomen and pelvis for today which will follow. He did have an unrevealing CT scan of the chest here 3 days ago. - Lab Interpretations Lab Results: 05/18/18 14:40 05/18/18 14:40 Lab Results 05/18/18 15:40: Blood Type O POSITIVE, Antibody Screen Negative, Crossmatch See Detail, BBK History Checked No verified bt 05/18/18 14:40: Sodium 134, Chloride 100, Potassium 4.5, Carbon Dioxide 25, Anion Gap 14, BUN 17, Creatinine 0.9, Est GFR ( Amer) > 60, Est GFR (Non- Af Amer) > 60, Random Glucose 159 H, Calcium 8.8, Magnesium 1.9, Total Bilirubin 1.0, AST 24, ALT 37, Alkaline Phosphatase 48, Lactate Dehydrogenase 434, Total Creatine Kinase 26 L, Troponin I < 0.01, Total Protein 6.0, Albumin 3.5, Globulin 2.4, Albumin/Globulin Ratio 1.4 05/18/18 14:40: pO2 79 H, VBG pH 7.34, VBG pCO2 48.0, VBG HCO3 25.9, VBG Total CO2 27.4, VBG O2 Sat (Calc) 98.7 H, VBG Base Excess -0.4 L, VBG Potassium 4.4, Sodium 135.0, Chloride 103.0, Glucose 169 H, Lactate 2.9 H, FiO2 21.0, Venous Blood Potassium 4.4 05/18/18 14:40: PT 11.8, INR 1.03, APTT 87.5 H 05/18/18 14:40: WBC 10.9, RBC 2.14 L, Hgb 7.8 L D, Hct 21.5 L, MCV 100.5, MCH 36.4 H, MCHC 36.3, RDW 15.0 H, Plt Count 213, MPV 9.0, Gran % 81.1 H, Lymph % ( Auto) 12.6 L, Gaston % (Auto) 6.1 H, Eos % (Auto) 0.0 L, Baso % (Auto) 0.2, Gran # 8.82 H, Lymph # (Auto) 1.4, Gaston # (Auto) 0.7 H, Eos # (Auto) 0.0, Baso # ( Auto) 0.02 I have reviewed the lab results: Yes - RAD Interpretation Radiology Orders: 05/18/18 12:53 CHEST PORTABLE [RAD] Stat 05/18/18 15:29 ABD & PELVIS W/O PO OR IV CONT [CT] Stat CT scan of the abdomen and pelvis is read by the radiologist shows soft tissue swelling findings only. Neurosurgery Physician: Radiologist - EKG Interpretation Interpreted by ED Physician: Yes Type: 12 lead EKG - Medication Orders Current Medication Orders: Finasteride (Proscar) 5 mg PO DAILY VICKY Lisinopril (Zestril) 5 mg PO DAILY VICKY Tamsulosin HCl (Flomax) 0.4 mg PO DAILY VICKY Discontinued Medications Sodium Chloride (Sodium Chloride 0.9%) 500 mls @ 500 mls/hr IV ONCE ONE Stop: 05/18/18 13:52 Last Admin: 05/18/18 14:38 Dose: 500 mls/hr eMAR Start Stop Document 05/18/18 14:38 JOSE (Rec: 05/18/18 14:39 [id number] Intravenous Solution Start Date 05/18/18 Start Time 14:39 End Date 05/18/18 End time 15:39 Total Infusion Time 60 Ondansetron HCl (Zofran Inj) 4 mg IVP ONCE ONE Stop: 05/18/18 12:54 Last Admin: 05/18/18 14:38 Dose: 4 mg IVP Administration Document 05/18/18 14:38 JOSE (Rec: 05/18/18 14:38 [facility] Charges for Administration # of IVP Administrations 1 - Scribe Statement The provider has reviewed the documentation as recorded by the Radha Leone Provider Scribe Attestation: All medical record entries made by the Scribe were at my direction and personally dictated by me. I have reviewed the chart and agree that the record accurately reflects my personal performance of the history, physical exam, medical decision making, and the department course for this patient. I have also personally directed, reviewed, and agree with the discharge instructions and disposition. Disposition/Present on Arrival - Present on Arrival Any Indicators Present on Arrival: No History of DVT/PE: No History of Uncontrolled Diabetes: No Urinary Catheter: No History of Decub. Ulcer: No History Surgical Site Infection Following: None - Disposition Have Diagnosis and Disposition been Completed?: Yes Diagnosis: Anemia, Ecchymosis Disposition: HOSPITALIZED Disposition Time: 16:18 Patient Plan: Admission, Telemetry Patient Problems: Current Active Problems Problem Status Onset Anemia Acute Ecchymosis Acute Condition: FAIR
--- NOTE | 2018-05-18 13:36 | RAD ---
Date of service: 05/18/2018 HISTORY: weak COMPARISON: 11/25/2017 FINDINGS: LUNGS: No active pulmonary disease. PLEURA: No significant pleural effusion identified, no pneumothorax apparent. CARDIOVASCULAR: Normal. OSSEOUS STRUCTURES: No significant abnormalities. VISUALIZED UPPER ABDOMEN: Normal. OTHER FINDINGS: None. IMPRESSION: No active disease.
[2018-05-18 14:56] LABS: BASO # 0.02 K/mm3 (0.0-2.0); BASO % 0.2 % (0.0-3.0); GRAN # 8.82 (1.4-6.5); GRAN % 81.1 % (50.0-68.0); LYMPH # 1.4 (1.2-3.4); LYMPH % 12.6 % (22.0-35.0); MEAN CELL VOLUME 100.5 fl (80.0-105.0); MEAN CORPUSCULAR HEMOGLOBIN 36.4 pg (25.0-35.0); MEAN CORPUSCULAR HGB CONC 36.3 g/dl (31.0-37.0); MONO # 0.7 (0.1-0.6); MONO % 6.1 % (1.0-6.0); RBC 2.14 10^6/uL (3.5-6.1); VENOUS BLOOD GAS BASE EXCESS -0.4 mmol/L (0.0-2.0); VENOUS BLOOD GAS PO2 79 mm/Hg (30-55); VENOUS BLOOD PH 7.34 (7.32-7.43); WHITE BLOOD COUNT 10.9 10^3/ul (4.5-11.0)
[2018-05-18 15:07] LABS: HEMOGLOBIN 7.8 g/dL (14.0-18.0)
[2018-05-18 15:15] LABS: ALB/GLOB RATIO 1.4 (1.1-1.8); ALBUMIN 3.5 g/dL (3.0-4.8); ALT/SGPT 37 U/L (7-56); AST/SGOT 24 U/L (17-59); BLOOD UREA NITROGEN 17 mg/dL (7-21); CALCIUM 8.8 mg/dL (8.4-10.5); GFR AFRICAN-AMERICAN > 60; GFR NON-AFRICAN AMERICAN > 60
[2018-05-18 15:17] LABS: TROPONIN I < 0.01 ng/mL
[2018-05-18 15:18] LABS: INR 1.03 (0.93-1.08); PARTIAL THROMBOPLASTIN TIME 87.5 Seconds (25.1-36.5); PROTHROMBIN TIME 11.8 SECONDS (9.4-12.5)
--- NOTE | 2018-05-18 17:07 | CT ---
Date of service: 05/18/2018 PROCEDURE: CT Abdomen and Pelvis without intravenous contrast HISTORY: Pain and vomiting COMPARISON: None. TECHNIQUE: Unenhanced study. Neither oral nor intravenous contrast administered. Radiation dose: Total exam DLP = 397.10 mGy-cm. This CT exam was performed using one or more of the following dose reduction techniques: Automated exposure control, adjustment of the mA and/or kV according to patient size, and/or use of iterative reconstruction technique. FINDINGS: LOWER THORAX: Unremarkable. LIVER: Unremarkable. No gross lesion or ductal dilatation. GALLBLADDER AND BILE DUCTS: Unremarkable. PANCREAS: Unremarkable. No gross lesion or ductal dilatation. SPLEEN: Unremarkable. ADRENALS: Unremarkable. No mass. KIDNEYS AND URETERS: Unremarkable. No hydronephrosis. No solid mass. 3 cm simple cyst lower pole right kidney. There may be a similar smaller cysts left kidney. VASCULATURE: Unremarkable. No aortic aneurysm. BOWEL: Unremarkable. No obstruction. No gross mural thickening. APPENDIX: Unremarkable. Normal appendix. PERITONEUM: Unremarkable. No free fluid. No free air. LYMPH NODES: Unremarkable. No enlarged lymph nodes. BLADDER: Contrast identified in an otherwise unremarkable urinary bladder. This is presumed to be the sequela of contrast injected for CT angiogram 05/15/2018. REPRODUCTIVE: Unremarkable. BONES: Wedge deformity L2 vertebral body without pre or paravertebral abnormality. OTHER FINDINGS: Right anterolateral chest wall edema similar finding identified on the prior study of the thorax and upper abdomen. No discrete collection or focal soft tissue mass. IMPRESSION: No acute intra-abdominal, retroperitoneal or pelvic abnormalities. Considerable soft tissue/ flank edema on the right. Additional benign and/or incidental findings described above.
--- NOTE | 2018-05-18 17:30 | CARD ---
APPROVED REPORT Date of service: 05/18/2018 EKG Measurement Heart [id number] <Conclusion> Normal sinus rhythm Normal ECG
[2018-05-18 19:09] LABS: VENOUS BLOOD GAS BASE EXCESS 0.5 mmol/L (0.0-2.0); VENOUS BLOOD GAS PO2 38 mm/Hg (30-55)
[2018-05-18] MEDS ORDERED: Pneumococcal 23-Valent Vaccine IM ONE (23:57)
[2018-05-19 07:47] LABS: IRON 115 ug/dL (45-180)
[2018-05-19 07:49] LABS: MEAN CELL VOLUME 101.6 fl (80.0-105.0); MEAN CORPUSCULAR HEMOGLOBIN 35.5 pg (25.0-35.0); MEAN CORPUSCULAR HGB CONC 34.9 g/dl (31.0-37.0); RBC 1.83 10^6/uL (3.5-6.1); RED CELL DISTRIBUTION WIDTH 15.3 % (11.5-14.5); WHITE BLOOD COUNT 8.8 10^3/ul (4.5-11.0)
[2018-05-19 07:51] LABS: ALB/GLOB RATIO 1.2 (1.1-1.8); ALBUMIN 2.9 g/dL (3.0-4.8); ALT/SGPT 40 U/L (7-56); AST/SGOT 19 U/L (17-59); BLOOD UREA NITROGEN 16 mg/dL (7-21); GFR AFRICAN-AMERICAN > 60; GFR NON-AFRICAN AMERICAN > 60
[2018-05-19 07:56] LABS: % IRON SATURATION 49 % (20-55); TOTAL IRON BINDING CAPACITY 237 ug/dL (261-462)
[2018-05-19 08:03] LABS: HEMOGLOBIN 6.5 g/dL (14.0-18.0)
[2018-05-19 11:34] LABS: FERRITIN 29.2 ng/mL
[2018-05-19 12:05] LABS: FOLATE > 20.0 ng/mL
[2018-05-19 16:57] LABS: HEMOGLOBIN 7.6 g/dL (14.0-18.0); MEAN CORPUSCULAR HEMOGLOBIN 34.7 pg (25.0-35.0); MEAN CORPUSCULAR HGB CONC 34.7 g/dl (31.0-37.0); MEAN PLATELET VOLUME 9.2 fl (7.0-11.0); RBC 2.19 10^6/uL (3.5-6.1); RED CELL DISTRIBUTION WIDTH 16.2 % (11.5-14.5); WHITE BLOOD COUNT 10.9 10^3/ul (4.5-11.0)
--- NOTE | 2018-05-19 23:21 | HP ---
HISTORY OF PRESENT ILLNESS: The patient is a 77-year-old male, who went to see Dr. Rider yesterday for his generalized weakness and chest discomfort with right-sided severe flank pain and also has discoloration on his right flank. Dr. Rider evaluated the patient. He referred him to emergency room for further workup. The patient does add that [facility] He had CAT scan of the chest, abdomen and pelvis done and was advised to follow up with PMD. He does complain of feeling nauseous and dizzy at times. PAST MEDICAL HISTORY: He has past medical history significant for, 1. Hyperlipidemia. 2. Hypertension. 3. Benign prostatic hypertrophy. 4. History of cataract extraction. ALLERGY: HE IS NOT ALLERGIC TO ANY MEDICATION. MEDICATIONS AT HOME: He is on Flomax, Zocor 40 mg at bedtime, lisinopril 5 mg daily, Proscar 5 mg daily. SOCIAL HISTORY: He denies smoking, drinking or alcohol use. REVIEW OF SYSTEMS: Complained of generalized weakness. Bilateral leg swelling. PHYSICAL EXAMINATION: GENERAL: He is awake, alert, oriented, communicative. VITAL SIGNS: He is afebrile, pulse 89, respirations 20, blood pressure 97/40. LUNGS: Bilateral fair airflow. No rhonchi or crackle. HEART: S1 and S2 audible. ABDOMEN: Soft. Nontender. No rebound. No guarding. NEUROLOGICAL: The patient is awake and alert, able to communicate. EXTREMITIES: He has some ecchymosis spots on both legs and +1 edema. LABORATORY EXAM: WBC is 10.9, hemoglobin 7.8, hematocrit 21.5, platelet Of 213. This morning, CBC shows WBC of 8.8, hemoglobin 6.5, hematocrit 18.6, platelet 193. Chemistry: Sodium 133, potassium 4.2, chloride 102, CO2 of 25, BUN 16, creatinine 0.9, blood sugar of 107, TIBC 237, total bili 1.5. CT scan of the chest or abdomen had shown no pulmonary embolism. CT of the abdomen and pelvis was done yesterday that has no acute intraabdominal, retroperitoneal or pelvic abnormality. Considerable soft tissue and flank edema on the right. ASSESSMENT: 1. Right flank ecchymosis, etiology unknown. 2. Symptomatic anemia. 3. Hypertension. 4. Hyperlipidemia. 5. Benign prostatic hypertrophy. PLAN: The patient will be given 2 blood transfusion. We will continue his usual medications including Flomax. He was given Lasix before second blood transfusion. Continue him on his lisinopril. I will order for stool for Hemoccult. Follow up CBC and CMP in the a.m. Lito Hardin MD
[2018-05-20 07:43] LABS: BASO # 0.04 K/mm3 (0.0-2.0); BASO % 0.4 % (0.0-3.0); EOS # 0.1 (0.0-0.7); EOS % 0.6 % (1.5-5.0); GRAN # 6.61 (1.4-6.5); GRAN % 70.6 % (50.0-68.0); HEMOGLOBIN 8.3 g/dL (14.0-18.0); LYMPH # 1.4 (1.2-3.4); LYMPH % 14.6 % (22.0-35.0); MEAN CELL VOLUME 97.5 fl (80.0-105.0); MEAN CORPUSCULAR HEMOGLOBIN 34.6 pg (25.0-35.0); MEAN CORPUSCULAR HGB CONC 35.5 g/dl (31.0-37.0); MEAN PLATELET VOLUME 9.1 fl (7.0-11.0); MONO # 1.3 (0.1-0.6); MONO % 13.8 % (1.0-6.0); RBC 2.4 10^6/uL (3.5-6.1); RED CELL DISTRIBUTION WIDTH 16.9 % (11.5-14.5); WHITE BLOOD COUNT 9.4 10^3/ul (4.5-11.0)
[2018-05-20 07:54] LABS: ALB/GLOB RATIO 1.3 (1.1-1.8); ALBUMIN 2.9 g/dL (3.0-4.8); ALT/SGPT 39 U/L (7-56); AST/SGOT 24 U/L (17-59); BLOOD UREA NITROGEN 17 mg/dL (7-21); CALCIUM 7.9 mg/dL (8.4-10.5); GFR AFRICAN-AMERICAN > 60; GFR NON-AFRICAN AMERICAN > 60
[2018-05-20] MEDS ORDERED: MethylPREDNISolone 40 mg Vial IV STA (11:04)
[2018-05-20] MEDS ORDERED: Collagen Hemostat Powder MM ONE (12:00)
[2018-05-20 12:28] LABS: HEMOGLOBIN 8.6 g/dL (14.0-18.0); MEAN CORPUSCULAR HEMOGLOBIN 34.1 pg (25.0-35.0); MEAN CORPUSCULAR HGB CONC 34.8 g/dl (31.0-37.0); MEAN PLATELET VOLUME 8.6 fl (7.0-11.0); RBC 2.52 10^6/uL (3.5-6.1); RED CELL DISTRIBUTION WIDTH 17.1 % (11.5-14.5)
[2018-05-20 12:41] LABS: INR 1.01 (0.93-1.08); PARTIAL THROMBOPLASTIN TIME 86.7 Seconds (25.1-36.5); PROTHROMBIN TIME 11.6 SECONDS (9.4-12.5)
[2018-05-20] MEDS ORDERED: Dexamethasone 20 mg / 5 ml Inj IVP STA (14:50)
--- NOTE | 2018-05-20 21:03 | PN ---
DATE: 05/20/2018 SUBJECTIVE: The patient is 77 years old who developed small ecchymosis in the right flank. He went to [facility] and had CT scan of the abdomen, pelvis, and chest done and was discharged, and was advised to follow up with PMD. He went to see Dr. Rider on 05/18/2018, who referred him to emergency room for further evaluation. The patient was found to be anemic, was given two blood transfusions. He has significant ecchymosis in the right flank. This morning, when his dressing was removed from the right decubital area, he kept on bleeding, there is a suspicion of clotting and bleeding problem, so the patient is being given 2 FFPs and discussed with Dr. Pathak who will order hematological workup. PHYSICAL EXAMINATION: GENERAL: The patient states he does not feel well, complained of generalized weakness. No fever or chills. No nausea or vomiting. VITAL SIGNS: He is afebrile, pulse 83, respirations 18, blood pressure 106/60. LUNGS: Bilateral fair air flow. No rhonchi or crackle. HEART: S1 and S2 audible. ABDOMEN: Soft. He has area of ecchymosis extending from the right low chest to the right flank extending to pelvic area. He also has bleeding spot on his right antecubital area. EXTREMITIES: Bilateral legs, no edema. LABORATORY EXAM: WBC is 10, hemoglobin 8.6, hematocrit 34.7, and platelets 185. His PTT is 86.7, fibrinogen 272. INR 1.1, PT 11.6. Chemistry: Sodium 133, potassium 3.9, chloride 101, CO2 of 26. BUN 17, creatinine 0.8. Blood sugar of 102. TIBC is 237. Total bilirubin 2.2. B12 is 689. . ASSESSMENT: 1. Symptomatic anemia secondary to large blood loss. 2. Coagulopathy. 3. Benign prostatic hypertrophy. PLAN: The patient will workup and coagulation workup has been ordered. The patient will be given two FFPs. We will monitor his CBC and transfuse while the workup is in progress. Lito Hardin MD [facility] # [id number]
[2018-05-20] MEDS: Cefepime 1gm in NS 100ml 1 GM/100 ML BAG IVPB SCH (21:21)
--- NOTE | 2018-05-20 23:54 | CP.PCM.CON ---
History of Present Illness - History of Present Illness History of Present Illness: Mr. Rosenberg is 77 year old male admitted with right flank pain and ecchymosis right side. he was admitted at [facility] with similar complaints. He was advised to follow up with PMD. CT abdomen, pelvis did not show any abnormality. He received 2 units of PRBC yesterday. Echymosis has increased to right side extending from pelvic area to upper chest , back. PTT is elevated to 86. Review of Systems - Constitutional Constitutional: As Per HPI - EENT Eyes: absent: As Per HPI, Blind Spots, Blurred Vision, Change in Vision, Decreased Night Vision, Diplopia, Discharge, Dry Eye, Exophthalmos, Floaters, Irritation, Itchy Eyes, Loss of Peripheral Vision, Pain, Photophobia, Requires Corrective Lenses, Sees Flashes, Spots in Vision, Tunnel Vision, Other Visual Disturbances, Loss of Vision, Other Ears: absent: As Per HPI, Decreased Hearing, Ear Discharge, Ear Pain, Tinnitus, Abnormal Hearing, Disequilibrium, Dizziness, Other Nose/Mouth/Throat: absent: As Per HPI, Epistaxis, Nasal Congestion, Nasal Discharge, Nasal Obstruction, Nasal Trauma, Nose Pain, Post Nasal Drip, Sinus Pain, Sinus Pressure, Bleeding Gums, Change in Voice, Dental Pain, Dry Mouth, Dysphagia, Halitosis, Hoarsness, Lip Swelling, Mouth Lesions, Mouth Pain, Odynophagia, Sore Throat, Throat Swelling, Tongue Swelling, Facial Pain, Neck Pain, Neck Mass, Other - Cardiovascular Cardiovascular: absent: As Per HPI, Acrocyanosis, Chest Pain, Chest Pain at Rest , Chest Pain with Activity, Claudication, Diaphoresis, Dyspnea, Dyspnea on Exertion, Edema, Irregular Heart Rhythm, Pain Radiating to Arm/Neck/Jaw, Leg Edema, Leg Ulcers, Lightheadedness, Orthopnea, Palpitations, Paroxysmal Nocturnal Dyspnea, Pedal Edema, Radiating Pain, Rapid Heart Rate, Slow Heart Rate, Syncope, Other - Respiratory Respiratory: absent: As Per HPI, Cough, Dyspnea, Hemoptysis, Dyspnea on Exertion , Wheezing, Snoring, Stridor, Pain on Inspiration, Chest Congestion, Excessive Mucous Production, Change in Mucous Color, Pain with Coughing, Other - Gastrointestinal Gastrointestinal: absent: As Per HPI, Abdominal Pain, Belching, Bloating, Change in Bowel Habits, Change in Stool Character, Coffee Ground Emesis, Constipation, Cramping, Diarrhea, Dyspepsia, Dysphagia, Early Satiety, Excessive Flatus, Fecal Incontinence, Heartburn, Hematemesis, Hematochezia, Loose Stools, Melena, Nausea, Odynophagia, Temesmus, Vomiting, Other - Genitourinary Genitourinary: absent: As Per HPI, Change in Urinary Stream, Difficulty Urinating, Dysuria, Flank Pain, Hematuria, Pyuria, Nocturia, Urinary Incontinence, Urinary Frequency, Urinary Hesitance, Urinary Urgency, Voiding Freq/Small Amts, Freq UTI, Hx Renal/Bladder Calculi, Hx /Renal Surgery, Bladder Distension, Other - Musculoskeletal Musculoskeletal: As Per HPI - Integumentary Integumentary: As Per HPI - Neurological Neurological: absent: As Per HPI, Abnormal Gait, Abnormal Hearing, Abnormal Movements, Abnormal Speech, Behavioral Changes, Burning Sensations, Confusion, Convulsions, Disequilibrium, Dizziness, Numbness, Focal Weakness, Frequent Falls , Headaches, Lack of Coordination, Loss of Vision, Memory Loss, Paresthesias, Radicular Pain, Restless Legs, Sensory Deficit, Syncope, Tingling, Tremor, Vertigo, Weakness, Other Visual Disturbances, Other - Psychiatric Psychiatric: absent: As Per HPI, Abnormal Sleep Pattern, Anhedonia, Anxiety, Auditory Hallucinations, Behavioral Changes, Change in Appetite, Change in Libido, Confusion, Depression, Difficulty Concentrating, Hallucinations, Homicidal Ideation, Hopelessness, Irritability, Memory Loss, Mood Swings, Panic Attacks, Paranoia, Suicidal Ideation, Visual Hallucinations, Tactile Hallucinations, Other - Endocrine Endocrine: absent: As Per HPI, Change in Body Appearance, Change in Libido, Cold Intolorance, Deepening of Voice, Excessive Sweating, Fatigue, Flushing, Heat Intolorance, Increase in Ring/Shoe/Hat Size, Palpitations, Polydipsia, Polyphagia, Polyuria, Other - Hematologic/Lymphatic Hematologic: As Per HPI Past Patient History - Infectious Disease Hx of Infectious Diseases: None - Past Social History Smoking Status: Never Smoked - CARDIAC Hx Cardiac Disorders: Yes Hx Hypercholesterolemia: Yes Hx Hypertension: Yes - PULMONARY Hx Respiratory Disorders: No - NEUROLOGICAL Hx Neurological Disorder: No - HEENT 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) Hx Cataracts: Yes (sx b/l) - RENAL Hx Kidney Stones: Yes (lithotripsy) - ENDOCRINE/METABOLIC Hx Endocrine Disorders: No - HEMATOLOGICAL/ONCOLOGICAL Hx Blood Disorders: Yes Other/Comment: macrocytosis without anemia - INTEGUMENTARY Hx Dermatological Problems: Yes (hx lipoma) Hx Psoriasis: Yes Other/Comment: Rash, multiple bruises arms legs abrasion right knee, large eccymosis from right abd around to right back, multiple bruises to back, chest, left shoulder abrasion - MUSCULOSKELETAL/RHEUMATOLOGICAL Hx Musculoskeletal Disorders: Yes Hx Falls: Yes (fell today) Hx Unsteady Gait: Yes - GASTROINTESTINAL Hx Gastrointestinal Disorders: Yes (colon polyps) - GENITOURINARY/GYNECOLOGICAL Hx Prostate Problems: Yes (bph, elevated psa) - PSYCHIATRIC Hx Psychophysiologic Disorder: No Hx Substance Use: No - SURGICAL HISTORY Hx Coronary Stent: Yes - ANESTHESIA Hx Anesthesia: Yes Hx Anesthesia Reactions: No Hx Malignant Hyperthermia: No Meds Allergies/Adverse Reactions: Allergies Allergy/AdvReac Type Severity Reaction Status Date / Time No Known Allergies Allergy Verified 05/18/18 12:51 - Medications Medications: Current Medications Finasteride (Proscar) 5 mg PO DAILY [facility] Last Admin: 05/20/18 10:24 Dose: 5 mg Cefepime HCl (Maxipime 1gm) 1 gm in 100 mls @ 100 mls/hr IVPB Q8 [facility] PRN Reason: Protocol Stop: 05/29/18 22:01 Last Admin: 05/20/18 21:21 Dose: 100 mls/hr Lisinopril (Zestril) 5 mg PO DAILY [facility] Last Admin: 05/20/18 10:25 Dose: Not Given Ondansetron HCl (Zofran Inj) 4 mg IVP Q6H PRN PRN Reason: Nausea/Vomiting Tamsulosin HCl (Flomax) 0.4 mg PO DAILY [facility] Last Admin: 05/20/18 10:25 Dose: 0.4 mg Physical Exam - Constitutional Appears: Well, Non-toxic - Head Exam Head Exam: ATRAUMATIC, NORMAL INSPECTION, NORMOCEPHALIC - Eye Exam Eye Exam: Normal appearance Pupil Exam: NORMAL ACCOMODATION - ENT Exam ENT Exam: Mucous Membranes Moist, Normal Exam - Neck Exam Neck exam: Positive for: Normal Inspection - Respiratory Exam Respiratory Exam: Clear to Auscultation Bilateral, NORMAL BREATHING PATTERN - Cardiovascular Exam Cardiovascular Exam: REGULAR RHYTHM, +S1, +S2 - GI/Abdominal Exam GI & Abdominal Exam: Normal Bowel Sounds, Soft - Extremities Exam Extremities exam: Positive for: normal inspection - Back Exam Back exam: NORMAL INSPECTION - Neurological Exam Neurological exam: Alert, Oriented x3 - Psychiatric Exam Psychiatric exam: Normal Affect - Skin Additional comments: Extensive ecchymosis on right side of chest, right flank, back .Extrimities B/L Results - Vital Signs Recent Vital Signs: Last Vital Signs Temp 98.5 F 05/20/18 23:12 Pulse 97 H 05/20/18 23:12 Resp 17 05/20/18 23:12 BP 135/69 05/20/18 23:12 Pulse Ox 98 05/20/18 23:12 - Labs Result Diagrams: 05/20/18 12:20 05/20/18 07:00 Labs: Laboratory Results - last 24 hr 05/20/18 05/20/18 05/20/18 07:00 07:00 07:00 WBC 9.4 RBC 2.40 L Hgb 8.3 L Hct 23.4 L MCV 97.5 MCH 34.6 MCHC 35.5 RDW 16.9 H Plt Count 189 MPV 9.1 Gran % 70.6 H Lymph % (Auto) 14.6 L Barton % (Auto) 13.8 H Eos % (Auto) 0.6 L Baso % (Auto) 0.4 Gran # 6.61 H Lymph # (Auto) 1.4 Barton # (Auto) 1.3 H Eos # (Auto) 0.1 Baso # (Auto) 0.04 PT INR APTT Fibrinogen Sodium 133 Potassium 3.9 Chloride 101 Carbon Dioxide 26 Anion Gap 9 L BUN 17 Creatinine 0.8 Est GFR ( Amer) > 60 Est GFR (Non-Af Amer) > 60 Random Glucose 102 Calcium 7.9 L Total Bilirubin 2.2 H AST 24 ALT 39 Alkaline Phosphatase 41 Total Protein 5.2 L Albumin 2.9 L Globulin 2.3 Albumin/Globulin Ratio 1.3 Prostate Specific Ag 2.3 Reaction Clerical Check Pre-Trans Blood Type Pre-Trans Bld Appearanc Pre-Trans GEMMA Post-Trans Blood Type Post-Trans Spec Appear Post-Trans GEMMA 05/20/18 05/20/18 05/20/18 12:20 12:20 16:00 WBC 10.0 RBC 2.52 L Hgb 8.6 L Hct 24.7 L MCV 98.0 MCH 34.1 MCHC 34.8 RDW 17.1 H Plt Count 185 MPV 8.6 Gran % Lymph % (Auto) Barton % (Auto) Eos % (Auto) Baso % (Auto) Gran # Lymph # (Auto) Barton # (Auto) Eos # (Auto) Baso # (Auto) PT 11.6 INR 1.01 APTT 86.7 H Fibrinogen 272 Sodium Potassium Chloride Carbon Dioxide Anion Gap BUN Creatinine Est GFR ( Amer) Est GFR (Non-Af Amer) Random Glucose Calcium Total Bilirubin AST ALT Alkaline Phosphatase Total Protein Albumin Globulin Albumin/Globulin Ratio Prostate Specific Ag Reaction Clerical Check No discrepancy Pre-Trans Blood Type O POSITIVE Pre-Trans Bld Appearanc No hemolysis Pre-Trans GEMMA Negative Post-Trans Blood Type O POSITIVE Post-Trans Spec Appear No hemolysis Post-Trans GEMMA Negative Assessment & Plan - Assessment and Plan (Free Text) Assessment: 1. 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 factor 7,8,9 11,12 sent today. GUSTAVO sent. 1 unit of FFP, 1 unit cryoprecipitate to be given today. if no improvement , will consider Novoseven. I will discuss with family the risk involved with factor infusion. factor levels might take about a week to be resulted. 2. severe anemia : s/p 2 units of PRBC. transfuse for Hb less than 8 gm/dl. 3. CT abdomen, pelvis unremarkable. 4. Tumor markers- CEA, CA 19.9, PSA ordered. Thank you Dr. Dewitt for allowing us to participate in his care. - Date & Time Date: 05/20/18 Time: 11:00
[2018-05-21] MEDS: Cefepime 1gm in NS 100ml 1 GM/100 ML BAG IVPB SCH ×3 (05:57→22:09)
[2018-05-21 07:12] LABS: GRAN # 14.24 (1.4-6.5); GRAN % 89.3 % (50.0-68.0); HEMOGLOBIN 7.5 g/dL (14.0-18.0); LYMPH # 0.9 (1.2-3.4); LYMPH % 5.9 % (22.0-35.0); MEAN CELL VOLUME 99.5 fl (80.0-105.0); MEAN CORPUSCULAR HEMOGLOBIN 34.1 pg (25.0-35.0); MEAN CORPUSCULAR HGB CONC 34.2 g/dl (31.0-37.0); MEAN PLATELET VOLUME 9.6 fl (7.0-11.0); MONO # 0.8 (0.1-0.6); MONO % 4.8 % (1.0-6.0); RBC 2.2 10^6/uL (3.5-6.1); RED CELL DISTRIBUTION WIDTH 17.1 % (11.5-14.5); WHITE BLOOD COUNT 15.9 10^3/ul (4.5-11.0)
[2018-05-21 07:36] LABS: INR 1.03 (0.93-1.08); PROTHROMBIN TIME 11.9 SECONDS (9.4-12.5)
[2018-05-21 07:42] LABS: ALB/GLOB RATIO 1.3 (1.1-1.8); ALBUMIN 3.1 g/dL (3.0-4.8); ALT/SGPT 26 U/L (7-56); AST/SGOT 26 U/L (17-59); BLOOD UREA NITROGEN 21 mg/dL (7-21); CALCIUM 8.3 mg/dL (8.4-10.5); GFR AFRICAN-AMERICAN > 60; GFR NON-AFRICAN AMERICAN > 60
[2018-05-21] MEDS ORDERED: Vancomycin 1gm in NS 250ml 1 GM/250 ML BAG IVPB SCH (12:30)
--- NOTE | 2018-05-21 12:45 | CP.PCM.PN ---
<Lyn Ceja - Last Filed: 05/21/18 12:41> Subjective - Date & Time of Evaluation Date of Evaluation: 05/21/18 Time of Evaluation: 08:00 - Subjective Subjective: PGY-[address] Dewitt Pt said the flank pain improves, still have some mild itchiness. (+) dizziness. No fall. No other acute complaint Objective - Vital Signs/Intake and Output Vital Signs (last 24 hours): Temp Pulse Resp BP Pulse Ox 98.4 F 106 H 20 133/61 96 05/21/18 12:00 05/21/18 12:00 05/21/18 12:00 05/21/18 12:00 05/21/18 06:00 Intake and Output: 05/21/18 05/21/18 06:59 18:59 Intake Total 920 Balance 920 - Medications Medications: Current Medications Finasteride (Proscar) 5 mg PO DAILY [facility] Last Admin: 05/21/18 09:54 Dose: 5 mg Cefepime HCl (Maxipime 1gm) 1 gm in 100 mls @ 100 mls/hr IVPB Q8 [facility] PRN Reason: Protocol Stop: 05/29/18 22:01 Last Admin: 05/21/18 05:57 Dose: 100 mls/hr Vancomycin HCl (Vancomycin 1gm) 1 gm in 250 mls @ 167 mls/hr IVPB Q12H [facility] PRN Reason: Protocol Last Admin: 05/21/18 12:32 Dose: 167 mls/hr Lisinopril (Zestril) 5 mg PO DAILY [facility] Last Admin: 05/21/18 09:54 Dose: 5 mg Ondansetron HCl (Zofran Inj) 4 mg IVP Q6H PRN PRN Reason: Nausea/Vomiting Tamsulosin HCl (Flomax) 0.4 mg PO DAILY [facility] Last Admin: 05/21/18 09:54 Dose: 0.4 mg - Labs Labs: 05/21/18 06:30 05/21/18 06:30 PT 11.9 SECONDS (9.4-12.5) 05/21/18 06:30 INR 1.03 (0.93-1.08) 05/21/18 06:30 APTT 82.0 Seconds (25.1-36.5) H 05/21/18 06:30 - Constitutional Appears: No Acute Distress - Head Exam Head Exam: ATRAUMATIC, NORMAL INSPECTION, NORMOCEPHALIC - Eye Exam Eye Exam: EOMI, Normal appearance, PERRL. absent: Scleral icterus Pupil Exam: NORMAL ACCOMODATION - ENT Exam ENT Exam: Mucous Membranes Moist - Neck Exam Additional comments: supple - Respiratory Exam Respiratory Exam: NORMAL BREATHING PATTERN - Cardiovascular Exam Cardiovascular Exam: REGULAR RHYTHM, +S1, +S2 - GI/Abdominal Exam GI & Abdominal Exam: Soft. absent: Tenderness - Neurological Exam Neurological Exam: Alert, Awake - Psychiatric Exam Psychiatric exam: Normal Affect, Normal Mood - Skin Skin Exam: Dry, Petechiae, Warm Additional comments: ecchymosis on R flank, no significant growth beyond the outline Assessment and Plan - Assessment and Plan (Free Text) Plan: Mr Rosenberg, 77M, with PMHx of HTN/HLD, BPH, was sent by PMD Dr Rider for chest discomfort, R sided flank pain with ecchymosis, and generalized weakness. He was feeling dizzy. he was admitted at [facility] [place] with similar complaints. CT abd/ pelvis w/o contrast (05/18) showed no acute abnormality. trops <0.01. A: R flank ecchymosis, etiology unknown Symptomatic anemia, Hb 6.5 --> 8.6 --> 7.5 (2u RBC, 1 FFP, 1 Cryoprep) Coagulopathy with APTT 80s Direct total-bilirubinemia, R/o hemolytic anemia Leukocytosis 15.9, likely SIRS, rule out infectious etiology Hypertension Hyperlipidemia Benign prostatic hypertrophy R/O transfusion reaction (blister, itch) RFA skin tear s/p Dermabond & Avitene x 1 P: Follow up on occult blood stool, GUSTAVO, Mixing studies, factors 8,9,11,12, inhibitor to factor 8, activity for factor 7, transfusion reaction study CA 19-9, CEA, PSA: NORMAL Folate, B12: NORMAL TIBC: low 237; Fe, ferritin, %Sat normal pending direct bili, LDH, haptoglobin, peripheral smear Pending ID to r/o infectious cause of spontanous hemorrahage Cefepime __day 2___, pending blood/urine culture. Pending dietitian rec HHD, supplement Lisinopril 5 PT/OT Finasterid, tamsulosin Prophylaxis - low risk to GI stress ulcer; Contraindication to DVT prophylaxis D/C planning - discontinue tele - Still symptomatic anemic. Not ready home today Consults: Mikey Matson <Keanu Dewitt S - Last Filed: 05/21/18 18:36> Objective - Vital Signs/Intake and Output Vital Signs (last 24 hours): Temp Pulse Resp BP Pulse Ox 98.5 F 100 H 20 129/63 96 05/21/18 18:00 05/21/18 18:00 05/21/18 18:00 05/21/18 18:00 05/21/18 06:00 Intake and Output: 05/21/18 05/21/18 06:59 18:59 Intake Total 920 Balance 920 - Medications Medications: Current Medications Acetaminophen (Tylenol 325mg Tab) 650 mg PO Q4H PRN PRN Reason: Pain Finasteride (Proscar) 5 mg PO DAILY [facility] Last Admin: 05/21/18 09:54 Dose: 5 mg Cefepime HCl (Maxipime 1gm) 1 gm in 100 mls @ 100 mls/hr IVPB Q8 [facility] PRN Reason: Protocol Stop: 05/29/18 22:01 Last Admin: 05/21/18 15:40 Dose: 100 mls/hr Vancomycin HCl (Vancomycin 1gm) 1 gm in 250 mls @ 167 mls/hr IVPB Q12H [facility] PRN Reason: Protocol Last Admin: 05/21/18 12:32 Dose: 167 mls/hr Lisinopril (Zestril) 5 mg PO DAILY [facility] Last Admin: 05/21/18 09:54 Dose: 5 mg Ondansetron HCl (Zofran Inj) 4 mg IVP Q6H PRN PRN Reason: Nausea/Vomiting Tamsulosin HCl (Flomax) 0.4 mg PO DAILY [facility] Last Admin: 05/21/18 09:54 Dose: 0.4 mg - Labs Labs: 05/21/18 06:30 05/21/18 06:30 PT 11.9 SECONDS (9.4-12.5) 05/21/18 06:30 INR 1.03 (0.93-1.08) 05/21/18 06:30 APTT 82.0 Seconds (25.1-36.5) H 05/21/18 06:30 Assessment and Plan - Assessment and Plan (Free Text) Plan: Pt seen and examined. I have reviewed the note of the medical billing specialist and agree with it. I have discussed the assessment and plan with the resident. I have reviewed the patient's labs and medications. Pt with bleeding. He has a coagulopathy, He will need mixing study. Acute anemia secondary to blood loss.
[2018-05-21 12:56] LABS: BILIRUBIN,DIRECT 0.3 mg/dL (0.0-0.4)
[2018-05-21 12:58] LABS: PH,URINE 6.5 (4.7-8.0); URINE BILIRUBIN NEGATIVE (NEGATIVE); URINE BLOOD NEGATIVE (NEGATIVE); URINE GLUCOSE (UA) 500 mg/dL (NEGATIVE); URINE LEUKOCYTE ESTERASE NEGATIVE Leu/uL (NEGATIVE); URINE PROTEIN NEGATIVE mg/dL (<30 mg/dL); URINE UROBILINOGEN 0.2 E.U./dL (<1 E.U./dL)
[2018-05-21 13:00] LABS: URINE APPEARANCE CLEAR (CLEAR); URINE COLOR YELLOW (YELLOW)
[2018-05-21] MEDS ORDERED: COAGULATION FACTOR VIIA IV ONE ×2 (13:15→13:45)
--- NOTE | 2018-05-21 16:02 | CP.PCM.CON ---
History of Present Illness - History of Present Illness History of Present Illness: 77 year old male with PMH of dyslipidemia, HTN, BPH, history of nephrolithiasis , history of cataracts [place] [facility] of right sided flank pain for about a week which is intermittent. He is also complaining of ecchymosis on the said side, as well as on the anterior chest, some the legs. The ecchymoses usually start out small and get bigger gradually. They are not painful to touch. He denies fever or chills, no nausea or vomiting, no chest pain, no SOB , no headache or dizziness, no abdominal pain, no diarrhea, no dysuria, no sore throat, no cough or rhinorrhea. The patient is noted to have leukocytosis and Infectious diseases consult is requested to further evaluate and manage. 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) Hx Cataracts: Yes (sx b/l) - RENAL Hx Kidney Stones: Yes (lithotripsy) - ENDOCRINE/METABOLIC Hx Endocrine Disorders: No - HEMATOLOGICAL/ONCOLOGICAL Hx Blood Disorders: Yes Other/Comment: macrocytosis without anemia - INTEGUMENTARY Hx Dermatological Problems: Yes (hx lipoma) Hx Psoriasis: Yes Other/Comment: Rash, multiple bruises arms legs abrasion right knee, large eccymosis from right abd around to right back, multiple bruises to back, chest, left shoulder abrasion - MUSCULOSKELETAL/RHEUMATOLOGICAL Hx Musculoskeletal Disorders: Yes Hx Falls: Yes (fell today) Hx Unsteady Gait: Yes - GASTROINTESTINAL Hx Gastrointestinal Disorders: Yes (colon polyps) - GENITOURINARY/GYNECOLOGICAL Hx Prostate Problems: Yes (bph, elevated psa) - PSYCHIATRIC Hx Psychophysiologic Disorder: No Hx Substance Use: No - SURGICAL HISTORY Hx Coronary Stent: Yes - ANESTHESIA Hx Anesthesia: Yes Hx Anesthesia Reactions: No Hx Malignant Hyperthermia: No Meds Allergies/Adverse Reactions: Allergies Allergy/AdvReac Type Severity Reaction Status Date / Time No Known Allergies Allergy Verified 05/18/18 12:51 - Medications Medications: Current Medications Finasteride (Proscar) 5 mg PO DAILY [facility] Last Admin: 05/20/18 10:24 Dose: 5 mg Cefepime HCl (Maxipime 1gm) 1 gm in 100 mls @ 100 mls/hr IVPB Q8 [facility] PRN Reason: Protocol Stop: 05/29/18 22:01 Last Admin: 05/21/18 05:57 Dose: 100 mls/hr Lisinopril (Zestril) 5 mg PO DAILY [facility] Last Admin: 05/20/18 10:25 Dose: Not Given Ondansetron HCl (Zofran Inj) 4 mg IVP Q6H PRN PRN Reason: Nausea/Vomiting Tamsulosin HCl (Flomax) 0.4 mg PO DAILY [facility] Last Admin: 05/20/18 10:25 Dose: 0.4 mg Physical Exam - Constitutional Appears: Chronically Ill - Head Exam Head Exam: NORMAL INSPECTION - ENT Exam ENT Exam: Mucous Membranes Moist - Neck Exam Neck exam: Negative for: Lymphadenopathy, Meningismus - Respiratory Exam Respiratory Exam: Decreased Breath Sounds - Cardiovascular Exam Cardiovascular Exam: +S1, +S2 - GI/Abdominal Exam GI & Abdominal Exam: Soft. absent: Tenderness - Skin Additional comments: mutiple ecchymotic lesions on the right flank area, right abdominal area, legs, upper back which are non-blanching, non-tender, no discharge Results - Vital Signs Recent Vital Signs: Last Vital Signs Temp 98.5 F 05/20/18 23:12 Pulse 112 H 05/21/18 02:00 Resp 17 05/20/18 23:12 BP 135/69 05/20/18 23:12 Pulse Ox 98 05/20/18 23:12 - Labs Result Diagrams: 05/21/18 06:30 05/21/18 06:30 Labs: Laboratory Results - last 24 hr 05/20/18 05/20/18 05/20/18 07:00 07:00 07:00 WBC 9.4 RBC 2.40 L Hgb 8.3 L Hct 23.4 L MCV 97.5 MCH 34.6 MCHC 35.5 RDW 16.9 H Plt Count 189 MPV 9.1 Gran % 70.6 H Lymph % (Auto) 14.6 L Burnet % (Auto) 13.8 H Eos % (Auto) 0.6 L Baso % (Auto) 0.4 Gran # 6.61 H Lymph # (Auto) 1.4 Burnet # (Auto) 1.3 H Eos # (Auto) 0.1 Baso # (Auto) 0.04 PT INR APTT Fibrinogen Sodium 133 Potassium 3.9 Chloride 101 Carbon Dioxide 26 Anion Gap 9 L BUN 17 Creatinine 0.8 Est GFR ( Amer) > 60 Est GFR (Non-Af Amer) > 60 Random Glucose 102 Calcium 7.9 L Total Bilirubin 2.2 H AST 24 ALT 39 Alkaline Phosphatase 41 Total Protein 5.2 L Albumin 2.9 L Globulin 2.3 Albumin/Globulin Ratio 1.3 Prostate Specific Ag 2.3 Reaction Clerical Check Pre-Trans Blood Type Pre-Trans Bld Appearanc Pre-Trans GEMMA Post-Trans Blood Type Post-Trans Spec Appear Post-Trans GEMMA 05/20/18 05/20/18 05/20/18 12:20 12:20 16:00 WBC 10.0 RBC 2.52 L Hgb 8.6 L Hct 24.7 L MCV 98.0 MCH 34.1 MCHC 34.8 RDW 17.1 H Plt Count 185 MPV 8.6 Gran % Lymph % (Auto) Burnet % (Auto) Eos % (Auto) Baso % (Auto) Gran # Lymph # (Auto) Burnet # (Auto) Eos # (Auto) Baso # (Auto) PT 11.6 INR 1.01 APTT 86.7 H Fibrinogen 272 Sodium Potassium Chloride Carbon Dioxide Anion Gap BUN Creatinine Est GFR ( Amer) Est GFR (Non-Af Amer) Random Glucose Calcium Total Bilirubin AST ALT Alkaline Phosphatase Total Protein Albumin Globulin Albumin/Globulin Ratio Prostate Specific Ag Reaction Clerical Check No discrepancy Pre-Trans Blood Type O POSITIVE Pre-Trans Bld Appearanc No hemolysis Pre-Trans GEMMA Negative Post-Trans Blood Type O POSITIVE Post-Trans Spec Appear No hemolysis Post-Trans GEMMA Negative Assessment & Plan - Assessment and Plan (Free Text) Plan: Assessment Systemic inflammatory response syndrome, consider due to ecchymoses due to coagulopathy, R/O nephrolithiasis R/O UTI dyslipidemia HTN BPH history of nephrolithiasis history of cataracts Plan Started Vancomycin and Cefepime pending blood and urine cx, CT A/P will need work up for the coagulopathy which is the probable reason for the ecchymoses will monitor clinically
--- NOTE | 2018-05-21 23:42 | CP.PCM.PN ---
Subjective - Date & Time of Evaluation Date of Evaluation: 05/21/18 Time of Evaluation: 08:00 - Subjective Subjective: Comfortable in bed. Complaining of discomfort on right flank. Bleeding on right arm stopped. He received 1 unit of cryoprecipitate and 1 unit FFP yesterday. No fever, cough. c/o back pain. Objective - Vital Signs/Intake and Output Vital Signs (last 24 hours): Temp Pulse Resp BP Pulse Ox 98.5 F 110 H 20 129/63 96 05/21/18 18:00 05/21/18 18:00 05/21/18 18:00 05/21/18 18:00 05/21/18 06:00 Intake and Output: 05/21/18 05/22/18 18:59 06:59 Intake Total 1730 Output Total 1500 Balance 230 - Medications Medications: Current Medications Acetaminophen (Tylenol 325mg Tab) 650 mg PO Q4H PRN PRN Reason: Pain Last Admin: 05/21/18 18:43 Dose: 650 mg Bacitracin (Bacitracin) 1 ea TOP DAILY [facility] Finasteride (Proscar) 5 mg PO DAILY [facility] Last Admin: 05/21/18 09:54 Dose: 5 mg Cefepime HCl (Maxipime 1gm) 1 gm in 100 mls @ 100 mls/hr IVPB Q8 [facility] PRN Reason: Protocol Stop: 05/29/18 22:01 Last Admin: 05/21/18 22:09 Dose: 100 mls/hr Vancomycin HCl (Vancomycin 1gm) 1 gm in 250 mls @ 167 mls/hr IVPB Q12H [facility] PRN Reason: Protocol Last Admin: 05/21/18 12:32 Dose: 167 mls/hr Lisinopril (Zestril) 5 mg PO DAILY [facility] Last Admin: 05/21/18 09:54 Dose: 5 mg Ondansetron HCl (Zofran Inj) 4 mg IVP Q6H PRN PRN Reason: Nausea/Vomiting Tamsulosin HCl (Flomax) 0.4 mg PO DAILY [facility] Last Admin: 05/21/18 09:54 Dose: 0.4 mg - Labs Labs: 05/21/18 06:30 05/21/18 06:30 PT 11.9 SECONDS (9.4-12.5) 05/21/18 06:30 INR 1.03 (0.93-1.08) 05/21/18 06:30 APTT 82.0 Seconds (25.1-36.5) H 05/21/18 06:30 - Constitutional Appears: Chronically Ill - Head Exam Head Exam: ATRAUMATIC, NORMAL INSPECTION, NORMOCEPHALIC - Eye Exam Eye Exam: Normal appearance - ENT Exam ENT Exam: Mucous Membranes Moist, Normal Exam - Neck Exam Neck Exam: Normal Inspection - Respiratory Exam Respiratory Exam: Clear to Ausculation Bilateral, NORMAL BREATHING PATTERN - Cardiovascular Exam Cardiovascular Exam: REGULAR RHYTHM, +S1, +S2 - GI/Abdominal Exam GI & Abdominal Exam: Soft, Normal Bowel Sounds - Extremities Exam Extremities Exam: Normal Inspection - Back Exam Back Exam: NORMAL INSPECTION - Neurological Exam Neurological Exam: Awake, CN II-XII Intact, Normal Gait, Oriented x3 - Psychiatric Exam Psychiatric exam: Normal Affect - Skin Additional comments: extensive ecchymosis right abdomen, chest, back. b/l arms- stable since yesterday. Assessment and Plan - Assessment and Plan (Free Text) Assessment: 1. 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 Ecchymosis more dense today. Hb/hct declined . Kwaku seven 5000mcgm to be given today. Discussed with the Pharmacy Ms. Mason. Discussed with son bedside about severity of condition. Risk associated with Novoseven including stroke . Ecchymosis are visual education director after Novoseven, as re-examined at hr 1800. No extensions beyond the marked lines since yesterday. One dose of Kwaku seven tomorrow 5000 mcgm. Pharmacy informed about the dose for tomorrow. favtors level will be resulted in approx one week. necessity of factor infusion will decided based upon clinical course. 2. Severe anemia ; one unit of PRBC to be given today. No evidence of hemolysis. 3. renal : stable BUN, creatinine. 4. CV : stable
[2018-05-22] MEDS: Cefepime 1gm in NS 100ml 1 GM/100 ML BAG IVPB SCH ×3 (06:15→21:23)
[2018-05-22] MEDS: Vancomycin 1gm in NS 250ml 1 GM/250 ML BAG IVPB SCH ×2 (08:01→18:31)
[2018-05-22 08:31] LABS: BASO # 0.02 K/mm3 (0.0-2.0); BASO % 0.1 % (0.0-3.0); GRAN # 18.43 (1.4-6.5); GRAN % 83.6 % (50.0-68.0); HEMOGLOBIN 9.7 g/dL (14.0-18.0); LYMPH # 1.7 (1.2-3.4); LYMPH % 7.8 % (22.0-35.0); MEAN CELL VOLUME 98.3 fl (80.0-105.0); MEAN CORPUSCULAR HEMOGLOBIN 33.1 pg (25.0-35.0); MEAN CORPUSCULAR HGB CONC 33.7 g/dl (31.0-37.0); MEAN PLATELET VOLUME 9.2 fl (7.0-11.0); MONO # 1.9 (0.1-0.6); MONO % 8.5 % (1.0-6.0); RBC 2.93 10^6/uL (3.5-6.1); RED CELL DISTRIBUTION WIDTH 19.6 % (11.5-14.5); WHITE BLOOD COUNT 22.1 10^3/ul (4.5-11.0)
[2018-05-22 08:39] LABS: ALB/GLOB RATIO 1.3 (1.1-1.8); ALBUMIN 3.2 g/dL (3.0-4.8); ALT/SGPT 27 U/L (7-56); AST/SGOT 28 U/L (17-59); BLOOD UREA NITROGEN 22 mg/dL (7-21); CALCIUM 8.6 mg/dL (8.4-10.5); GFR AFRICAN-AMERICAN > 60; GFR NON-AFRICAN AMERICAN > 60
[2018-05-22 08:54] LABS: INR 0.86
[2018-05-22] MEDS: Bacitracin 500 Units/gm Oint Foilpak UD TOP SCH (10:17)
[2018-05-22] MEDS ORDERED: COAGULATION FACTOR VIIA IV ONE (13:30)
--- NOTE | 2018-05-22 13:33 | PN ---
Copied To: Usman Jensen MD Attending MD: Usman Jensen MD. DATE: 05/22/2018 SUBJECTIVE: The patient is seen earlier this morning in room 572, bed 2. No fevers and no chills. OBJECTIVE: VITAL SIGNS: On exam, temperature is 98, blood pressure is 156/80, respiratory rate of 18, heart rate of 84. HEENT: Examination is unremarkable. NECK: Supple. LUNGS: Have decreased breath sounds. HEART: Normal S1, S2. ABDOMEN: Soft, nontender. DATA: Laboratory examination reveals the patient's white count is up to 22,100, hemoglobin of 9, platelets of 237 and the chemistries reveal the patient has a BUN of 22, creatinine of 0.8, PSA is 1.9 and urinalysis is noted. Blood cultures are negative and review of orders reveal the patient to be on cefepime and vancomycin. A 77-year-old male with dyslipidemia, hypertension, BPH, history of nephrolithiasis, history of cataract complaining of right-sided flank pain which is intermittently with SIRS, systemic inflammatory response syndrome due to ecchymosis due to coagulopathy and nephrolithiasis, must be ruled out; urinary tract infection in a patient with dyslipidemia, hypertension and BPH. He has a history of nephrolithiasis and cataracts, now with increasing leukocytosis of 22,000 and the patient's white count on 05/20/2018 was 9.4 and now it is up to 22,000. The patient's medications are reviewed. The patient was given recombinant factor VIIa and with negative blood cultures. Dr. Pathak's note from yesterday is reviewed. She states that the patient has severe anemia with ecchymosis. We will follow closely with you. We will make further recommendations. Usman Jensen MD
--- NOTE | 2018-05-22 15:17 | CP.PCM.PN ---
<Lyn Ceja - Last Filed: 05/22/18 15:14> Subjective - Date & Time of Evaluation Date of Evaluation: 05/22/18 Time of Evaluation: 07:00 - Subjective Subjective: PGY-[address] Dewitt Pt received 1upRBC this am, no acute event. (+) BM. (+) generalized dull body ache, around ecchymotic area. Objective - Vital Signs/Intake and Output Vital Signs (last 24 hours): Temp Pulse Resp BP Pulse Ox 98.1 F 92 H 20 117/64 100 05/22/18 12:00 05/22/18 12:00 05/22/18 12:00 05/22/18 12:00 05/22/18 12:00 Intake and Output: 05/22/18 05/22/18 06:59 18:59 Intake Total 2585 Output Total 2400 Balance 185 - Medications Medications: Current Medications Acetaminophen (Tylenol 325mg Tab) 650 mg PO Q4H PRN PRN Reason: Pain Last Admin: 05/22/18 13:22 Dose: 650 mg Bacitracin (Bacitracin) 1 ea TOP DAILY [facility] Last Admin: 05/22/18 10:17 Dose: 1 ea Finasteride (Proscar) 5 mg PO DAILY [facility] Last Admin: 05/22/18 10:17 Dose: 5 mg Cefepime HCl (Maxipime 1gm) 1 gm in 100 mls @ 100 mls/hr IVPB Q8 [facility] PRN Reason: Protocol Stop: 05/29/18 22:01 Last Admin: 05/22/18 06:15 Dose: 100 mls/hr Vancomycin HCl (Vancomycin 1gm) 1 gm in 250 mls @ 167 mls/hr IVPB Q12H [facility] PRN Reason: Protocol Last Admin: 05/22/18 08:01 Dose: 167 mls/hr Lisinopril (Zestril) 5 mg PO DAILY [facility] Last Admin: 05/22/18 10:17 Dose: 5 mg Ondansetron HCl (Zofran Inj) 4 mg IVP Q6H PRN PRN Reason: Nausea/Vomiting Tamsulosin HCl (Flomax) 0.4 mg PO DAILY [facility] Last Admin: 05/22/18 10:17 Dose: 0.4 mg - Labs Labs: 05/22/18 08:00 05/22/18 08:00 PT 9.9 SECONDS 05/22/18 08:00 INR 0.86 05/22/18 08:00 APTT 75.5 Seconds 05/22/18 08:00 - Constitutional Appears: No Acute Distress - Head Exam Head Exam: ATRAUMATIC, NORMAL INSPECTION, NORMOCEPHALIC - Eye Exam Eye Exam: EOMI, Normal appearance, PERRL. absent: Scleral icterus Pupil Exam: NORMAL ACCOMODATION - ENT Exam ENT Exam: Mucous Membranes Moist - Neck Exam Additional comments: supple - Respiratory Exam Respiratory Exam: Clear to Ausculation Bilateral. absent: Rales, Rhonchi, Wheezes - Cardiovascular Exam Cardiovascular Exam: REGULAR RHYTHM, +S1, +S2 - GI/Abdominal Exam GI & Abdominal Exam: Soft, Normal Bowel Sounds. absent: Tenderness - Extremities Exam Extremities Exam: Normal Capillary Refill. absent: Calf Tenderness, Pedal Edema - Neurological Exam Neurological Exam: Alert, Awake, Oriented x3 - Psychiatric Exam Psychiatric exam: Normal Affect, Normal Mood - Skin Skin Exam: Dry, Warm Additional comments: Ecchymotic area confined in outline, look more purplish today Assessment and Plan - Assessment and Plan (Free Text) Plan: Mr Rosenberg, 77M, with PMHx of HTN/HLD, BPH, was sent by PMD Dr Rider for chest discomfort, R sided flank pain with ecchymosis, and generalized weakness. He was feeling dizzy. he was admitted at [facility] with similar complaints. CT abd/ pelvis w/o contrast (05/18) showed no acute abnormality. trops <0.01. He was found to have coagulopathy with ecchymosis. During the hospital stay, his WBC is trending up. A: Coagulopathy with ecchymosis, APTT 80s, pending mixing study, received Novo7 x 2 Acute anemia secondary to blood loss, s/p 3u RBC, 1 FFP, 1 Cryoprep Indirect hyperbilirubinemia, had ruled out hemolytic anemia Leukocytosis, trending up to 20s, likely SIRS due to ecchymosis. R/O infectious etiology Hypertension Hyperlipidemia Benign prostatic hypertrophy R/O transfusion reaction (blister, itch) RFA skin tear s/p Dermabond & Avitene x 1 P: Received NovoSeven #2 today Follow up on occult blood stool, GUSTAVO, Mixing studies, factors 8,9,11,12, inhibitor to factor 8, activity for factor 7, transfusion reaction study CA 19-9, CEA, PSA: NORMAL Folate, B12: NORMAL; TIBC: low 237; Fe, ferritin, %Sat normal Cefepime __day 3___ and Vancomycin ___day 1___, pending blood/urine culture. Blood culture (05/20) neg x 1d Blood culture (05/22) pending For HTN, Lisinopril 5 For BPH, Finasterid, tamsulosin HHD, supplement PT/OT Prophylaxis - low risk to GI stress ulcer; Contraindication to DVT prophylaxis D/C planning - discontinue tele - Not medically cleared yet. Pending blood culture and H/H stability - f/u heme outpatient Consults: Mikey Matson s/r/d/w Dr. Dewitt <Keanu Dewitt S - Last Filed: 05/22/18 19:05> Objective - Vital Signs/Intake and Output Vital Signs (last 24 hours): Temp Pulse Resp BP Pulse Ox 98.1 F 92 H 20 117/64 100 05/22/18 12:00 05/22/18 12:00 05/22/18 12:00 05/22/18 12:00 05/22/18 12:00 - Medications Medications: Current Medications Acetaminophen (Tylenol 325mg Tab) 650 mg PO Q4H PRN PRN Reason: Pain Last Admin: 05/22/18 13:22 Dose: 650 mg Bacitracin (Bacitracin) 1 ea TOP DAILY [facility] Last Admin: 05/22/18 10:17 Dose: 1 ea Finasteride (Proscar) 5 mg PO DAILY [facility] Last Admin: 05/22/18 10:17 Dose: 5 mg Cefepime HCl (Maxipime 1gm) 1 gm in 100 mls @ 100 mls/hr IVPB Q8 [facility] PRN Reason: Protocol Stop: 05/29/18 22:01 Last Admin: 05/22/18 15:00 Dose: 100 mls/hr Vancomycin HCl (Vancomycin 1gm) 1 gm in 250 mls @ 167 mls/hr IVPB Q12H [facility] PRN Reason: Protocol Last Admin: 05/22/18 18:31 Dose: 167 mls/hr Lisinopril (Zestril) 5 mg PO DAILY [facility] Last Admin: 05/22/18 10:17 Dose: 5 mg Ondansetron HCl (Zofran Inj) 4 mg IVP Q6H PRN PRN Reason: Nausea/Vomiting Tamsulosin HCl (Flomax) 0.4 mg PO DAILY [facility] Last Admin: 05/22/18 10:17 Dose: 0.4 mg - Labs Labs: 05/22/18 08:00 05/22/18 08:00 PT 9.9 SECONDS 05/22/18 08:00 INR 0.86 05/22/18 08:00 APTT 75.5 Seconds 05/22/18 08:00 Assessment and Plan - Assessment and Plan (Free Text) Plan: Pt seen and examined. I have reviewed the note of the medical leader and agree with it. I have discussed the assessment and plan with the resident. I have reviewed the patient's labs and medications. Pt with coagulopathy. He is being followed by [facility]. He is on Abx. BCx neg thus far.
[2018-05-23] MEDS: Cefepime 1gm in NS 100ml 1 GM/100 ML BAG IVPB SCH ×3 (05:14→21:51)
[2018-05-23] MEDS: Vancomycin 1gm in NS 250ml 1 GM/250 ML BAG IVPB SCH ×2 (06:41→18:01)
[2018-05-23 07:34] LABS: BASO # 0.05 K/mm3 (0.0-2.0); BASO % 0.3 % (0.0-3.0); EOS # 0.1 (0.0-0.7); EOS % 0.4 % (1.5-5.0); GRAN # 12.5 (1.4-6.5); GRAN % 77.2 % (50.0-68.0); HEMOGLOBIN 10.3 g/dL (14.0-18.0); LYMPH # 2.4 (1.2-3.4); LYMPH % 14.9 % (22.0-35.0); MEAN CELL VOLUME 98.7 fl (80.0-105.0); MEAN CORPUSCULAR HEMOGLOBIN 33.8 pg (25.0-35.0); MEAN CORPUSCULAR HGB CONC 34.2 g/dl (31.0-37.0); MEAN PLATELET VOLUME 9.3 fl (7.0-11.0); MONO # 1.2 (0.1-0.6); MONO % 7.2 % (1.0-6.0); RBC 3.05 10^6/uL (3.5-6.1); RED CELL DISTRIBUTION WIDTH 19.9 % (11.5-14.5); WHITE BLOOD COUNT 16.2 10^3/ul (4.5-11.0)
[2018-05-23 07:40] LABS: PARTIAL THROMBOPLASTIN TIME 76.9 Seconds (25.1-36.5)
[2018-05-23 08:00] LABS: ALB/GLOB RATIO 1.2 (1.1-1.8); ALBUMIN 2.9 g/dL (3.0-4.8); ALT/SGPT 40 U/L (7-56); AST/SGOT 25 U/L (17-59); BLOOD UREA NITROGEN 22 mg/dL (7-21); CALCIUM 8.1 mg/dL (8.4-10.5); GFR AFRICAN-AMERICAN > 60; GFR NON-AFRICAN AMERICAN > 60
[2018-05-23 08:31] LABS: INR 0.85; PROTHROMBIN TIME 9.7 SECONDS (9.4-12.5)
[2018-05-23 08:59] LABS: PH,URINE 6.5 (4.7-8.0); URINE BILIRUBIN NEGATIVE (NEGATIVE); URINE BLOOD NEGATIVE (NEGATIVE); URINE GLUCOSE (UA) NEGATIVE (NEGATIVE); URINE LEUKOCYTE ESTERASE NEGATIVE Leu/uL (NEGATIVE); URINE PROTEIN NEGATIVE mg/dL (<30 mg/dL); URINE UROBILINOGEN 0.2 E.U./dL (<1 E.U./dL)
[2018-05-23 09:02] LABS: URINE APPEARANCE CLEAR (CLEAR); URINE COLOR YELLOW (YELLOW)
[2018-05-23] MEDS: Bacitracin 500 Units/gm Oint Foilpak UD TOP SCH (09:09)
--- NOTE | 2018-05-23 10:21 | RAD ---
Date of service: 05/23/2018 HISTORY: r/o infection COMPARISON: 05/18/2018 TECHNIQUE: Chest PA and lateral FINDINGS: LUNGS: No active pulmonary disease. PLEURA: No significant pleural effusion identified. No pneumothorax apparent. CARDIOVASCULAR: Normal. OSSEOUS STRUCTURES: No significant abnormalities. VISUALIZED UPPER ABDOMEN: Normal. OTHER FINDINGS: None. IMPRESSION: No active disease.
--- NOTE | 2018-05-23 11:59 | CP.PCM.PN ---
<Lyn Ceja - Last Filed: 05/23/18 11:55> Subjective - Date & Time of Evaluation Date of Evaluation: 05/23/18 Time of Evaluation: 07:00 - Subjective Subjective: PGY-[address] Dewitt Pain in R shoulder joint persist but ok w/o meds. No other complaints Objective - Vital Signs/Intake and Output Vital Signs (last 24 hours): Temp Pulse Resp BP Pulse Ox 97.9 F 84 20 134/79 98 05/23/18 07:35 05/23/18 09:09 05/23/18 07:35 05/23/18 09:09 05/23/18 07:35 Intake and Output: 05/23/18 05/23/18 06:59 18:59 Intake Total 480 Balance 480 - Medications Medications: Current Medications Acetaminophen (Tylenol 325mg Tab) 650 mg PO Q4H PRN PRN Reason: Pain Last Admin: 05/22/18 13:22 Dose: 650 mg Bacitracin (Bacitracin) 1 ea TOP DAILY [facility] Last Admin: 05/23/18 09:09 Dose: 1 ea Finasteride (Proscar) 5 mg PO DAILY [facility] Last Admin: 05/23/18 09:09 Dose: 5 mg Cefepime HCl (Maxipime 1gm) 1 gm in 100 mls @ 100 mls/hr IVPB Q8 [facility] PRN Reason: Protocol Stop: 05/29/18 22:01 Last Admin: 05/23/18 05:14 Dose: 100 mls/hr Vancomycin HCl (Vancomycin 1gm) 1 gm in 250 mls @ 167 mls/hr IVPB Q12H [facility] PRN Reason: Protocol Last Admin: 05/23/18 06:41 Dose: 167 mls/hr Lisinopril (Zestril) 5 mg PO DAILY [facility] Last Admin: 05/23/18 09:09 Dose: 5 mg Ondansetron HCl (Zofran Inj) 4 mg IVP Q6H PRN PRN Reason: Nausea/Vomiting Tamsulosin HCl (Flomax) 0.4 mg PO DAILY [facility] Last Admin: 05/23/18 09:09 Dose: 0.4 mg - Labs Labs: 05/23/18 07:00 05/23/18 07:00 PT 9.7 SECONDS (9.4-12.5) 05/23/18 07:00 INR 0.85 05/23/18 07:00 APTT 76.9 Seconds (25.1-36.5) H 05/23/18 07:00 - Constitutional Appears: No Acute Distress - Head Exam Head Exam: ATRAUMATIC, NORMAL INSPECTION, NORMOCEPHALIC - Eye Exam Eye Exam: EOMI, Normal appearance, PERRL. absent: Scleral icterus Pupil Exam: NORMAL ACCOMODATION - ENT Exam ENT Exam: Mucous Membranes Moist - Neck Exam Additional comments: supple - Respiratory Exam Respiratory Exam: Clear to Ausculation Bilateral. absent: Rales, Rhonchi, Wheezes - Cardiovascular Exam Cardiovascular Exam: REGULAR RHYTHM, +S1, +S2 - GI/Abdominal Exam GI & Abdominal Exam: Soft. absent: Tenderness - Extremities Exam Extremities Exam: absent: Calf Tenderness, Pedal Edema - Back Exam Back Exam: absent: CVA tenderness (L), CVA tenderness (R) - Neurological Exam Neurological Exam: Alert, Awake, Oriented x3 - Psychiatric Exam Psychiatric exam: Normal Affect, Normal Mood - Skin Skin Exam: Dry, Warm Additional comments: Ecchymosis within marked line Assessment and Plan - Assessment and Plan (Free Text) Plan: Mr Rosenberg, 77M, with PMHx of HTN/HLD, BPH, was sent by PMD Dr Rider for chest discomfort, R sided flank pain with ecchymosis, and generalized weakness. He was feeling dizzy. he was admitted at [facility] with similar complaints. CT abd/ pelvis w/o contrast (05/18) showed no acute abnormality. trops <0.01. He was found to have coagulopathy with ecchymosis. During the hospital stay, his WBC is trending up. A: Coagulopathy with ecchymosis, APTT 80s, pending mixing study & factor study, received Novo7 x 2, 1 FFP, 1 Cryoprep Acute anemia secondary to blood loss, s/p 3u RBC Indirect hyperbilirubinemia, likely due to coagulopathy. Had ruled out hemolytic anemia Leukocytosis, likely SIRS due to ecchymosis. R/O infectious etiology Hypertension Hyperlipidemia Benign prostatic hypertrophy R/O transfusion reaction (blister, itch) RFA skin tear s/p Dermabond & Avitene x 1 P: Follow up on occult blood stool, GUSTAVO, Mixing studies, factors 8,9,11,12, inhibitor to factor 8, activity for factor 7, transfusion reaction study CA 19-9, CEA, PSA: NORMAL Folate, B12: NORMAL; TIBC: low 237; Fe, ferritin, %Sat normal Cefepime __day 4___ and Vancomycin ___day 2___ Blood culture (05/20) neg x 2d Blood culture (05/22) neg x 1d For HTN, Lisinopril 5 For BPH, Finasterid, tamsulosin HHD, supplement PT/OT Prophylaxis - low risk to GI stress ulcer; Contraindication to DVT prophylaxis, On TEDs D/C planning - Per Dr Pathak, need to wait for factor study. Not stable for discharge today. - f/u heme outpatient Consults: Mikey Matson s/r/d/w Dr. Dewitt <Keanu Dewitt S - Last Filed: 05/23/18 20:38> Objective - Vital Signs/Intake and Output Vital Signs (last 24 hours): Temp Pulse Resp BP Pulse Ox 98.9 F 95 H 20 121/68 96 05/23/18 14:20 05/23/18 14:20 05/23/18 14:20 05/23/18 14:20 05/23/18 14:20 - Medications Medications: Current Medications Acetaminophen (Tylenol 325mg Tab) 650 mg PO Q4H PRN PRN Reason: Pain Last Admin: 05/22/18 13:22 Dose: 650 mg Bacitracin (Bacitracin) 1 ea TOP DAILY [facility] Last Admin: 05/23/18 09:09 Dose: 1 ea Finasteride (Proscar) 5 mg PO DAILY [facility] Last Admin: 05/23/18 09:09 Dose: 5 mg Cefepime HCl (Maxipime 1gm) 1 gm in 100 mls @ 100 mls/hr IVPB Q8 [facility] PRN Reason: Protocol Stop: 05/29/18 22:01 Last Admin: 05/23/18 13:29 Dose: 100 mls/hr Vancomycin HCl (Vancomycin 1gm) 1 gm in 250 mls @ 167 mls/hr IVPB Q12H [facility] PRN Reason: Protocol Last Admin: 05/23/18 18:01 Dose: 167 mls/hr Lisinopril (Zestril) 5 mg PO DAILY [facility] Last Admin: 05/23/18 09:09 Dose: 5 mg Ondansetron HCl (Zofran Inj) 4 mg IVP Q6H PRN PRN Reason: Nausea/Vomiting Tamsulosin HCl (Flomax) 0.4 mg PO DAILY [facility] Last Admin: 05/23/18 09:09 Dose: 0.4 mg - Labs Labs: 05/23/18 07:00 05/23/18 07:00 PT 9.7 SECONDS (9.4-12.5) 05/23/18 07:00 INR 0.85 05/23/18 07:00 APTT 76.9 Seconds (25.1-36.5) H 05/23/18 07:00 Assessment and Plan - Assessment and Plan (Free Text) Plan: Pt seen and examined. I have reviewed the note of the medical assistant float and agree with it. I have discussed the assessment and plan with the resident. I have reviewed the patient's labs and medications. Pt with Hb stable. Waiting for work up to be completed. Heme following. Pt with coagulopathy most likely acquired.
--- NOTE | 2018-05-23 13:26 | PN ---
Copied To: Usman Jensen MD Attending MD: Usman Jensen MD DATE: 05/23/2018 SUBJECTIVE: The patient is in bed, seen earlier this morning in 572, bed 2. No fevers, no chills. OBJECTIVE: VITAL SIGNS: On exam, temperature is 97, blood pressure is 130/70, respiratory rate of 18. HEENT: Examination is unremarkable. NECK: Supple. LUNGS: Have decreased breath sounds. HEART: Normal S1, S2. ABDOMEN: Soft. DATA: Laboratory examination reveals a white count of 16,000, hemoglobin of 10, BUN of 22, creatinine is 0.7. Procalcitonin is less than 0.05. The urinalysis is noted. Microbiology reveals the blood cultures are negative and Dr. Dewitt's note from yesterday was reviewed. ASSESSMENT AND PLAN: This is a 77-year-old male with dyslipidemia, hypertension, benign prostatic hypertrophy, history of nephrolithiasis, history of cataracts, right-sided flank pain, intermittent with systemic inflammatory response syndrome due to ecchymosis, due to coagulopathy, with leukocytosis. This morning, his white count is down to 16,000, waiting for pancultures, currently on cefepime and vancomycin. We will follow with you. Usman Jensen MD
[2018-05-23 13:53] LABS: PARTIAL THROMBOPLASTIN TIME 75.5 Seconds (25.1-36.5); PROTHROMBIN TIME 9.9 SECONDS (9.4-12.5)
[2018-05-24] MEDS: Cefepime 1gm in NS 100ml 1 GM/100 ML BAG IVPB SCH ×3 (05:43→22:18)
[2018-05-24] MEDS: Vancomycin 1gm in NS 250ml 1 GM/250 ML BAG IVPB SCH ×2 (06:44→17:28)
[2018-05-24 07:31] LABS: BASO # 0.07 K/mm3 (0.0-2.0); BASO % 0.5 % (0.0-3.0); EOS # 0.1 (0.0-0.7); EOS % 0.9 % (1.5-5.0); GRAN # 9.65 (1.4-6.5); GRAN % 75.7 % (50.0-68.0); HEMOGLOBIN 10.3 g/dL (14.0-18.0); LYMPH % 15.5 % (22.0-35.0); MEAN CELL VOLUME 100.6 fl (80.0-105.0); MEAN CORPUSCULAR HEMOGLOBIN 33.3 pg (25.0-35.0); MEAN CORPUSCULAR HGB CONC 33.1 g/dl (31.0-37.0); MONO % 7.4 % (1.0-6.0); RBC 3.09 10^6/uL (3.5-6.1); RED CELL DISTRIBUTION WIDTH 19.7 % (11.5-14.5); WHITE BLOOD COUNT 12.8 10^3/ul (4.5-11.0)
[2018-05-24 07:38] LABS: INR 1.02; PROTHROMBIN TIME 11.7 SECONDS (9.4-12.5)
[2018-05-24 07:40] LABS: PARTIAL THROMBOPLASTIN TIME 88.6 Seconds (25.1-36.5)
[2018-05-24 07:41] LABS: ALB/GLOB RATIO 1.2 (1.1-1.8); ALT/SGPT 37 U/L (7-56); AST/SGOT 27 U/L (17-59); BLOOD UREA NITROGEN 20 mg/dL (7-21); CALCIUM 8.3 mg/dL (8.4-10.5); GFR AFRICAN-AMERICAN > 60; GFR NON-AFRICAN AMERICAN > 60
--- NOTE | 2018-05-24 09:16 | CP.PCM.PN ---
<Lyn Ceja - Last Filed: 05/24/18 12:34> Subjective - Date & Time of Evaluation Date of Evaluation: 05/24/18 Time of Evaluation: 07:00 - Subjective Subjective: PGY-[address] Dewitt Pt c/o generalized weakness. The joint pain is the same, tolerated by pain med. no other acute complaint Objective - Vital Signs/Intake and Output Vital Signs (last 24 hours): Temp Pulse Resp BP Pulse Ox 99 F 91 H 18 148/71 96 05/24/18 06:00 05/24/18 06:00 05/24/18 06:00 05/24/18 06:00 05/24/18 06:00 Intake and Output: 05/24/18 05/24/18 06:59 18:59 Intake Total 360 Output Total 700 Balance -340 - Medications Medications: Current Medications Acetaminophen (Tylenol 325mg Tab) 650 mg PO Q4H PRN PRN Reason: Pain Last Admin: 05/22/18 13:22 Dose: 650 mg Bacitracin (Bacitracin) 1 ea TOP DAILY [facility] Last Admin: 05/23/18 09:09 Dose: 1 ea Finasteride (Proscar) 5 mg PO DAILY [facility] Last Admin: 05/23/18 09:09 Dose: 5 mg Cefepime HCl (Maxipime 1gm) 1 gm in 100 mls @ 100 mls/hr IVPB Q8 [facility] PRN Reason: Protocol Stop: 05/29/18 22:01 Last Admin: 05/24/18 05:43 Dose: 100 mls/hr Vancomycin HCl (Vancomycin 1gm) 1 gm in 250 mls @ 167 mls/hr IVPB Q12H [facility] PRN Reason: Protocol Last Admin: 05/24/18 06:44 Dose: 167 mls/hr Lisinopril (Zestril) 5 mg PO DAILY [facility] Last Admin: 05/23/18 09:09 Dose: 5 mg Ondansetron HCl (Zofran Inj) 4 mg IVP Q6H PRN PRN Reason: Nausea/Vomiting Tamsulosin HCl (Flomax) 0.4 mg PO DAILY [facility] Last Admin: 05/23/18 09:09 Dose: 0.4 mg - Labs Labs: 05/24/18 07:15 05/24/18 07:15 PT 11.7 SECONDS (9.4-12.5) 05/24/18 07:15 INR 1.02 05/24/18 07:15 APTT 88.6 Seconds (25.1-36.5) H 05/24/18 07:15 - Constitutional Appears: Non-toxic - Head Exam Head Exam: ATRAUMATIC, NORMAL INSPECTION, NORMOCEPHALIC - Eye Exam Eye Exam: Conjunctival injection (slight), EOMI, Normal appearance. absent: Scleral icterus Pupil Exam: NORMAL ACCOMODATION - ENT Exam ENT Exam: absent: Mucous Membranes Moist - Neck Exam Additional comments: supple - Respiratory Exam Respiratory Exam: NORMAL BREATHING PATTERN. absent: Rales, Rhonchi, Wheezes - Cardiovascular Exam Cardiovascular Exam: REGULAR RHYTHM, +S1, +S2 - GI/Abdominal Exam GI & Abdominal Exam: Soft, Normal Bowel Sounds. absent: Tenderness - Back Exam Back Exam: absent: CVA tenderness (L), CVA tenderness (R) - Neurological Exam Neurological Exam: Alert, Awake, Oriented x3 - Psychiatric Exam Psychiatric exam: Normal Affect, Normal Mood - Skin Skin Exam: Dry, Warm Additional comments: ecchymosis confirned to outline Assessment and Plan - Assessment and Plan (Free Text) Plan: Mr Rosenberg, 77M, with PMHx of HTN/HLD, BPH, was sent by PMD Dr Rider for chest discomfort, R sided flank pain with ecchymosis, and generalized weakness. He was feeling dizzy. he was admitted at [facility] [place] with similar complaints. CT abd/ pelvis w/o contrast (05/18) showed no acute abnormality. trops <0.01. He was found to have coagulopathy with ecchymosis. A: Coagulopathy with ecchymosis, APTT 80s, pending mixing study & factor study, received Novo7 x 2, 1 FFP, 1 Cryoprep Acute anemia secondary to blood loss, s/p 3u RBC Indirect hyperbilirubinemia, likely due to coagulopathy. Had ruled out hemolytic anemia Leukocytosis, likely SIRS due to ecchymosis. R/O infectious etiology Hypertension Hyperlipidemia Benign prostatic hypertrophy R/O transfusion reaction (blister, itch) RFA skin tear s/p Dermabond & Avitene x 1 P: Follow up on Mixing studies, factors 8,9,11,12, inhibitor to factor 8, activity for factor 7, transfusion reaction study Factor 7 activity: Normal occult blood stool, GUSTAVO: Negative CA 19-9, CEA, PSA: NORMAL Folate, B12: NORMAL; TIBC: low 237; Fe, ferritin, %Sat normal Cefepime __day 5___ and Vancomycin ___day 3___ Blood culture (05/20) neg x 3d Blood culture (05/22) neg x 2d For HTN, Lisinopril 5 For BPH, Finasterid, tamsulosin HHD, supplement PT/OT Prophylaxis - low risk to GI stress ulcer; Contraindication to DVT prophylaxis, On TEDs D/C planning - Per Dr Pathak, need to wait for factor study. Not stable for discharge today. - f/u heme outpatient Consults: Mikey Matson s/r/d/w Dr. Dewitt <Keanu Dewitt S - Last Filed: 05/24/18 17:06> Objective - Vital Signs/Intake and Output Vital Signs (last 24 hours): Temp Pulse Resp BP Pulse Ox 98.4 F 97 H 18 132/64 100 05/24/18 16:41 05/24/18 16:41 05/24/18 16:41 05/24/18 16:41 05/24/18 16:41 Intake and Output: 05/24/18 05/24/18 06:59 18:59 Intake Total 360 720 Output Total 700 400 Balance -340 320 - Medications Medications: Current Medications Acetaminophen (Tylenol 325mg Tab) 650 mg PO Q4H PRN PRN Reason: Pain Last Admin: 05/24/18 11:47 Dose: 650 mg Bacitracin (Bacitracin) 1 ea TOP DAILY [facility] Last Admin: 05/24/18 09:34 Dose: 1 ea Finasteride (Proscar) 5 mg PO DAILY [facility] Last Admin: 05/24/18 09:32 Dose: 5 mg Cefepime HCl (Maxipime 1gm) 1 gm in 100 mls @ 100 mls/hr IVPB Q8 [facility] PRN Reason: Protocol Stop: 05/29/18 22:01 Last Admin: 05/24/18 14:58 Dose: 100 mls/hr Vancomycin HCl (Vancomycin 1gm) 1 gm in 250 mls @ 167 mls/hr IVPB Q12H [facility] PRN Reason: Protocol Last Admin: 05/24/18 06:44 Dose: 167 mls/hr Lisinopril (Zestril) 5 mg PO DAILY [facility] Last Admin: 05/24/18 09:32 Dose: 5 mg Ondansetron HCl (Zofran Inj) 4 mg IVP Q6H PRN PRN Reason: Nausea/Vomiting Tamsulosin HCl (Flomax) 0.4 mg PO DAILY [facility] Last Admin: 05/24/18 09:32 Dose: 0.4 mg - Labs Labs: 05/24/18 07:15 05/24/18 07:15 PT 11.7 SECONDS (9.4-12.5) 05/24/18 07:15 INR 1.02 05/24/18 07:15 APTT 88.6 Seconds (25.1-36.5) H 05/24/18 07:15 Assessment and Plan - Assessment and Plan (Free Text) Plan: Pt seen and examined. I have reviewed the note of the medical office representative and agree with it. I have discussed the assessment and plan with the resident. I have reviewed the patient's labs and medications. Pt with stable Hb. Dr Le following pt. Waiting for work up results. Pt on Abx. Eating ok. Pain is controlled.
[2018-05-24] MEDS: Bacitracin 500 Units/gm Oint Foilpak UD TOP SCH (09:34)
--- NOTE | 2018-05-24 12:59 | PN ---
Copied To: Usman Jensen MD Attending MD: Usman Jensen MD DATE: 05/24/2018 SUBJECTIVE: The patient is in bed, in no acute distress. PHYSICAL EXAMINATION: VITAL SIGNS: Temperature is 98, blood pressure is 140/70, respiratory rate of 20, heart rate of 95. HEENT: Examination of HEENT is unremarkable. NECK: Supple. LUNGS: Have decreased breath sounds. HEART: Normal S1, S2. ABDOMEN: Soft, nontender. LABORATORY DATA: Laboratory examination reveals a white count of 12,800, hemoglobin of 10, platelets of 229. Chemistries reveals a BUN of 20, creatinine of 0.7, procalcitonin is 0.05. Urinalysis is noted. Microbiology reveals the blood cultures are negative. Urine cultures are negative. Chest x-ray: No active lung disease. ASSESSMENT AND PLAN: A 77-year-old with dyslipidemia, hypertension, benign prostatic hypertrophy, history of nephrolithiasis, history of cataracts, right-sided flank pain, intermittent with systemic inflammatory response syndrome due to ecchymosis due to coagulopathy and leukocytosis and on cefepime day #5 and vancomycin day #3 with the white count improving at 12,800. Negative blood cultures, negative urine cultures and negative procalcitonin, negative chest x-ray from yesterday. Dr. Dewitt's note is reviewed. Usman Jensen MD
[2018-05-25] MEDS: Vancomycin 1gm in NS 250ml 1 GM/250 ML BAG IVPB SCH (05:58)
[2018-05-25] MEDS: Cefepime 1gm in NS 100ml 1 GM/100 ML BAG IVPB SCH ×2 (05:58→14:24)
[2018-05-25 07:23] LABS: BASO # 0.04 K/mm3 (0.0-2.0); BASO % 0.4 % (0.0-3.0); EOS # 0.1 (0.0-0.7); GRAN # 7.83 (1.4-6.5); GRAN % 72.7 % (50.0-68.0); HEMOGLOBIN 9.8 g/dL (14.0-18.0); LYMPH # 1.5 (1.2-3.4); LYMPH % 13.6 % (22.0-35.0); MEAN CELL VOLUME 100.7 fl (80.0-105.0); MEAN CORPUSCULAR HGB CONC 33.8 g/dl (31.0-37.0); MONO # 1.3 (0.1-0.6); MONO % 12.3 % (1.0-6.0); RBC 2.88 10^6/uL (3.5-6.1); RED CELL DISTRIBUTION WIDTH 19.4 % (11.5-14.5); WHITE BLOOD COUNT 10.8 10^3/ul (4.5-11.0)
[2018-05-25 07:31] LABS: INR 1.02; PROTHROMBIN TIME 11.7 SECONDS (9.4-12.5)
[2018-05-25 07:34] LABS: PARTIAL THROMBOPLASTIN TIME 88.6 Seconds (25.1-36.5)
[2018-05-25 07:39] LABS: ALB/GLOB RATIO 1.1 (1.1-1.8); ALBUMIN 2.8 g/dL (3.0-4.8); ALT/SGPT 31 U/L (7-56); AST/SGOT 22 U/L (17-59); BLOOD UREA NITROGEN 21 mg/dL (7-21); GFR AFRICAN-AMERICAN > 60; GFR NON-AFRICAN AMERICAN > 60
--- NOTE | 2018-05-25 10:04 | CP.PCM.PN ---
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 funtional factor 8 is < 1%. Severe coagulopathy - Per Heme: prednisone 30 mg PO daily. Cytoxin. Factor 8 replacement - PICC request Original Note: <Lyn Ceja - Last Filed: 05/25/18 10:01> Subjective - Date & Time of Evaluation Date of Evaluation: 05/25/18 Time of Evaluation: 07:00 - Subjective Subjective: PGY-[address] Dewitt Pt tolerated OOB yesterday. General weakness has improved. No dizziness, CP, SOB. (+) BM Objective - Vital Signs/Intake and Output Vital Signs (last 24 hours): Temp Pulse Resp BP Pulse Ox 98.4 F 90 20 119/60 97 05/25/18 07:30 05/25/18 07:30 05/25/18 07:30 05/25/18 07:30 05/25/18 07:30 - Medications Medications: Current Medications Acetaminophen (Tylenol 325mg Tab) 650 mg PO Q4H PRN PRN Reason: Pain Last Admin: 05/24/18 11:47 Dose: 650 mg Bacitracin (Bacitracin) 1 ea TOP DAILY [facility] Last Admin: 05/24/18 09:34 Dose: 1 ea Finasteride (Proscar) 5 mg PO DAILY [facility] Last Admin: 05/24/18 09:32 Dose: 5 mg Cefepime HCl (Maxipime 1gm) 1 gm in 100 mls @ 100 mls/hr IVPB Q8 [facility] PRN Reason: Protocol Stop: 05/29/18 22:01 Last Admin: 05/25/18 05:58 Dose: 100 mls/hr Vancomycin HCl (Vancomycin 1gm) 1 gm in 250 mls @ 167 mls/hr IVPB Q12H [facility] PRN Reason: Protocol Last Admin: 05/25/18 05:58 Dose: 167 mls/hr Lisinopril (Zestril) 5 mg PO DAILY [facility] Last Admin: 05/24/18 09:32 Dose: 5 mg Ondansetron HCl (Zofran Inj) 4 mg IVP Q6H PRN PRN Reason: Nausea/Vomiting Tamsulosin HCl (Flomax) 0.4 mg PO DAILY [facility] Last Admin: 05/24/18 09:32 Dose: 0.4 mg - Labs Labs: 05/25/18 07:00 05/25/18 07:00 PT 11.7 SECONDS (9.4-12.5) 05/25/18 07:00 INR 1.02 05/25/18 07:00 APTT 88.6 Seconds (25.1-36.5) H 05/25/18 07:00 - Constitutional Appears: No Acute Distress - Head Exam Head Exam: ATRAUMATIC, NORMAL INSPECTION, NORMOCEPHALIC - Eye Exam Eye Exam: EOMI, Normal appearance, PERRL. absent: Scleral icterus Pupil Exam: NORMAL ACCOMODATION - ENT Exam ENT Exam: Mucous Membranes Moist - Neck Exam Additional comments: supple - Respiratory Exam Respiratory Exam: Clear to Ausculation Bilateral. absent: Rales, Rhonchi, Wheezes - Cardiovascular Exam Cardiovascular Exam: REGULAR RHYTHM, +S1, +S2 - GI/Abdominal Exam GI & Abdominal Exam: Soft, Normal Bowel Sounds. absent: Tenderness - Extremities Exam Extremities Exam: Normal Capillary Refill. absent: Calf Tenderness, Pedal Edema - Neurological Exam Neurological Exam: Alert, Awake, Oriented x3 - Psychiatric Exam Psychiatric exam: Normal Affect, Normal Mood - Skin Skin Exam: Dry, Warm Additional comments: Ecchymosis confined to outline. Assessment and Plan - Assessment and Plan (Free Text) Plan: Mr Rosenberg, 77M, with PMHx of HTN/HLD, BPH, was sent by PMD Dr Rider for chest discomfort, R sided flank pain with ecchymosis, and generalized weakness. He was feeling dizzy. he was admitted at [facility] [place] with similar complaints. CT abd/ pelvis w/o contrast (05/18) showed no acute abnormality. trops <0.01. He was found to have coagulopathy with ecchymosis. 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 Had ruled out hemolytic anemia Leukocytosis, likely SIRS due to ecchymosis. R/O infectious etiology Hypertension Hyperlipidemia Benign prostatic hypertrophy R/O transfusion reaction (blister, itch) RFA skin tear s/p Dermabond & Avitene x 1 P: Need to find out which coagulation factor is the inhibitor's target. - Factor 7 activity: Normal - Pending factors 8,9,11,12, inhibitor to factor 8, follow up transfusion reaction study occult blood stool, GUSTAVO: Negative CA 19-9, CEA, PSA: NORMAL Folate, B12: NORMAL; TIBC: low 237; Fe, ferritin, %Sat normal Cefepime __day 6___ and Vancomycin ___day 4___ Blood culture (05/20) neg x 4d Blood culture (05/22) neg x 2d For HTN, Lisinopril 5 For BPH, Finasterid, tamsulosin HHD, supplement PT/OT Prophylaxis - low risk to GI stress ulcer; Contraindication to DVT prophylaxis, On TEDs D/C planning - Per Dr Pathak, need to wait for factor study. Not stable for discharge today. - f/u heme outpatient Consults: Mikey Matson s/r/d/w Dr. Dewitt <Keanu Dewitt S - Last Filed: 05/28/18 21:38> Objective - Vital Signs/Intake and Output Vital Signs (last 24 hours): Temp Pulse Resp BP Pulse Ox 98.1 F 107 H 20 139/88 98 05/28/18 19:23 05/28/18 19:23 05/28/18 19:23 05/28/18 19:23 05/28/18 08:26 Intake and Output: 05/28/18 05/29/18 18:59 06:59 Intake Total 2085 Output Total 1600 Balance 485 - Labs Labs: 05/28/18 06:10 05/28/18 06:10 PT 11.4 SECONDS (9.4-12.5) 05/27/18 07:30 INR 0.99 05/27/18 07:30 APTT 89.4 Seconds (25.1-36.5) H 05/27/18 07:30 Assessment and Plan - Assessment and Plan (Free Text) Plan: Pt seen and examined. I have reviewed the note of the medical data analyst and agree with it. I have discussed the assessment and plan with the resident. I have reviewed the patient's labs and medications. Pt will need factor VIII. He is most likely still bleeding. Pain is controlled. Pt will need to go to a Hemophilia center. Will need to speak contact a [facility].
[2018-05-25] MEDS: Bacitracin 500 Units/gm Oint Foilpak UD TOP SCH (10:13)
--- NOTE | 2018-05-25 13:26 | CP.PCM.PCO ---
Assessment & Plan - Assessment and Plan (Free Text) Assessment: Mixing study showed presence of inhibitor. Start prednisone 30 mg PO daily. Cytoxan 75 mg Po daily. Factor level pending. Once studies are resulted specific factor infusion to be given until bleeding resolves. discussed with pharmacy, cytoxan will be available by Monday. discussed with primary team.
--- NOTE | 2018-05-25 16:08 | CP.PCM.PN ---
Subjective - Date & Time of Evaluation Date of Evaluation: 05/25/18 Time of Evaluation: 13:30 - Subjective Subjective: No fevers, not in distress. Objective - Vital Signs/Intake and Output Vital Signs (last 24 hours): Temp Pulse Resp BP Pulse Ox 98.4 F 102 H 20 110/68 97 05/25/18 07:30 05/25/18 10:14 05/25/18 07:30 05/25/18 10:14 05/25/18 07:30 - Medications Medications: Current Medications Acetaminophen (Tylenol 325mg Tab) 650 mg PO Q4H PRN PRN Reason: Pain Last Admin: 05/24/18 11:47 Dose: 650 mg Bacitracin (Bacitracin) 1 ea TOP DAILY [facility] Last Admin: 05/25/18 10:13 Dose: 1 ea Finasteride (Proscar) 5 mg PO DAILY [facility] Last Admin: 05/25/18 10:13 Dose: 5 mg Cefepime HCl (Maxipime 1gm) 1 gm in 100 mls @ 100 mls/hr IVPB Q8 [facility] PRN Reason: Protocol Stop: 05/29/18 22:01 Last Admin: 05/25/18 05:58 Dose: 100 mls/hr Vancomycin HCl (Vancomycin 1gm) 1 gm in 250 mls @ 167 mls/hr IVPB Q12H [facility] PRN Reason: Protocol Last Admin: 05/25/18 05:58 Dose: 167 mls/hr Lisinopril (Zestril) 5 mg PO DAILY [facility] Last Admin: 05/25/18 10:14 Dose: 5 mg Ondansetron HCl (Zofran Inj) 4 mg IVP Q6H PRN PRN Reason: Nausea/Vomiting Tamsulosin HCl (Flomax) 0.4 mg PO DAILY [facility] Last Admin: 05/25/18 10:14 Dose: 0.4 mg - Labs Labs: 05/25/18 07:00 05/25/18 07:00 PT 11.7 SECONDS (9.4-12.5) 05/25/18 07:00 INR 1.02 05/25/18 07:00 APTT 88.6 Seconds (25.1-36.5) H 05/25/18 07:00 - Constitutional Appears: Chronically Ill - Head Exam Head Exam: NORMAL INSPECTION - ENT Exam ENT Exam: Mucous Membranes Moist - Neck Exam Neck Exam: absent: Meningismus - Respiratory Exam Respiratory Exam: Decreased Breath Sounds - Cardiovascular Exam Cardiovascular Exam: +S1, +S2 - GI/Abdominal Exam GI & Abdominal Exam: Soft. absent: Tenderness Assessment and Plan - Assessment and Plan (Free Text) Plan: Assessment Systemic inflammatory response syndrome, consider due to ecchymoses due to coagulopathy dyslipidemia HTN BPH history of nephrolithiasis history of cataracts Plan has been on 5 days of Vancomycin and Cefepime - will d/c antibiotics and observe will need further work up for the coagulopathy which is the probable reason for the ecchymoses will continue to monitor clinically
--- NOTE | 2018-05-26 09:43 | CP.PCM.PCO ---
Physician Communication Note - Physician Communication Note Physician Communication Note: Factor VIII 2000 Units IV push will be given today.
[2018-05-26] MEDS: Bacitracin 500 Units/gm Oint Foilpak UD TOP SCH (10:14)
[2018-05-26] MEDS: Oxycodone/Acetaminophen 5/325 mg Tab PO PRN (10:17)
--- NOTE | 2018-05-26 11:42 | PN ---
Copied To: Usman Jensen MD Attending MD: Usman Jensen MD DATE: 05/26/2018 SUBJECTIVE: The patient is in bed, in no acute distress, nontoxic. PHYSICAL EXAMINATION: VITAL SIGNS: Temperature is 98, blood pressure is 114/50, respiratory rate of 18. HEENT: Examination of HEENT is unremarkable. NECK: Supple. LUNGS: Have decreased breath sounds. HEART: Normal S1, S2. ABDOMEN: Soft. LABORATORY DATA: Laboratory examination reveals a white count of 10,000, hemoglobin of 9, platelets of 203. BUN of 21, creatinine of 0.7. Procalcitonin 0.05. Urinalysis is noted and GUSTAVO is negative. Microbiology reveals the blood cultures are negative. Urine cultures are negative. Review of orders reveals the patient is on prednisone. Currently off of antibiotics. ASSESSMENT AND PLAN: A 77-year-old male with systemic inflammatory response syndrome due to ecchymosis secondary to coagulopathy and dyslipidemia, hypertension, benign prostatic hypertrophy, history of nephrolithiasis, history of cataract. Completed the antibiotics. Currently off of antibiotics, afebrile. Dr. Pathak's communication report from today is reviewed. The patient is at risk for developing nosocomial infections. Usman Jensen MD
[2018-05-26] MEDS ORDERED: ANTIHEMOPHILIC FACTOR IVP ONE (13:00)
--- NOTE | 2018-05-26 14:11 | CP.PCM.PN ---
Subjective - Date & Time of Evaluation Date of Evaluation: 05/26/18 Time of Evaluation: 02:25 - Subjective Subjective: Yuan Pope- Internal Medicine Resident- Technical Proposal Writer House Doctor Progress Note: I was informed by the inventory specialist manager that patient is required to receive Factor VIII 2000 units IV push x 1 as per patient's lead burner supervisor/oncologist. I was also informed that nursing staff cannot administer drug and so was asked to give medication. I spoke with Dr. Pathak regarding medication. I was informed by her that Factor VIII is safe to be given via peripheral IV over the course of 2- 3 minutes. I was also informed no serious life threatening complications are to be expected from administering medication. Patient was seen and examined at bedside. Peripheral IV noted in left hand. Line investigated for infiltration. Aspirated and successfully flushed 5 cc of 0.9% NS. Factor VIII administered over 2-3 minutes without resistance. Peripheral IV flushed with an additional 5 cc of 0.9% NS. No signs of infiltration noted. Nursing informed to evaluate patient q20 minutes over next hour and to page for any questions/concerns. Objective - Vital Signs/Intake and Output Vital Signs (last 24 hours): Temp Pulse Resp BP Pulse Ox 98.3 F 86 20 114/53 L 100 05/26/18 07:44 05/26/18 10:16 05/26/18 07:44 05/26/18 10:16 05/26/18 07:44 Intake and Output: 05/26/18 05/26/18 06:59 18:59 Intake Total 480 Output Total 900 Balance -420 - Medications Medications: Current Medications Acetaminophen (Tylenol 325mg Tab) 650 mg PO Q4H PRN PRN Reason: Pain Last Admin: 05/25/18 12:34 Dose: 650 mg Bacitracin (Bacitracin) 1 ea TOP DAILY [facility] Last Admin: 05/26/18 10:14 Dose: 1 ea Famotidine (Pepcid) 20 mg PO 1000,2200 [facility] Last Admin: 05/26/18 10:14 Dose: 20 mg Finasteride (Proscar) 5 mg PO DAILY [facility] Last Admin: 05/26/18 10:15 Dose: 5 mg Lisinopril (Zestril) 5 mg PO DAILY [facility] Last Admin: 05/26/18 10:16 Dose: 5 mg Ondansetron HCl (Zofran Inj) 4 mg IVP Q6H PRN PRN Reason: Nausea/Vomiting Oxycodone/Acetaminophen (Percocet 5/325 Mg Tab) 1 tab PO Q6H PRN PRN Reason: Pain, severe (8-10) Stop: 05/28/18 18:34 Last Admin: 05/26/18 10:17 Dose: 1 tab Prednisone (Prednisone Tab) 30 mg PO DAILY [facility] Last Admin: 05/26/18 10:15 Dose: 30 mg Tamsulosin HCl (Flomax) 0.4 mg PO DAILY [facility] Last Admin: 05/26/18 10:14 Dose: 0.4 mg - Labs Labs: 05/25/18 07:00 05/25/18 07:00 PT 11.7 SECONDS (9.4-12.5) 05/25/18 07:00 INR 1.02 05/25/18 07:00 APTT 88.6 Seconds (25.1-36.5) H 05/25/18 07:00
--- NOTE | 2018-05-27 01:22 | PN ---
Copied To: Keanu Dewitt MD Attending MD: Keanu Dewitt MD DATE: 05/26/2018 SUBJECTIVE: The patient has no complaints of any chest pain. No shortness of breath, no headaches. He said he does have generalized pains. He was placed on Percocet yesterday, but only used 1 pill. PHYSICAL EXAMINATION: VITAL SIGNS: Temperature is 98.2, pulse of 91, blood pressure is 94/54, respirations 20. GENERAL: The patient is lying in bed, flat, comfortable. HEENT: No oral lesion. Anicteric sclerae. Moist mucosa. NECK: No JVD, adenopathy, or thyromegaly. CARDIOVASCULAR: S1 and S2, regular. No murmurs, rubs, or gallops. LUNGS: Clear to auscultation bilaterally. No wheeze, rales, or rhonchi. ABDOMEN: Bowel sounds are positive, soft, nontender and nondistended. EXTREMITIES: No cyanosis, clubbing or edema. LABORATORY DATA: White count of 10.8, hemoglobin 9.8, creatinine 0.7. ASSESSMENT: 1. Coagulopathy. 2. Acute anemia secondary to blood loss. 3. Hypertension. 4. Dyslipidemia. 5. Benign prostatic hypertrophy. PLAN: The patient is currently comfortable. The patient received factor VIII today. The patient is going to be on Pepcid. He is going to continue with prednisone daily. The patient is on Proscar. He is going to be on lisinopril for hypertension. The patient is on Zofran as needed. He is on a heart-healthy diet. Keanu Dewitt MD
[2018-05-27 08:04] LABS: BASO # 0.02 K/mm3 (0.0-2.0); BASO % 0.1 % (0.0-3.0); EOS # 0.1 (0.0-0.7); EOS % 0.3 % (1.5-5.0); GRAN # 11.65 (1.4-6.5); GRAN % 75.6 % (50.0-68.0); LYMPH # 1.8 (1.2-3.4); LYMPH % 11.8 % (22.0-35.0); MEAN CELL VOLUME 101.8 fl (80.0-105.0); MEAN CORPUSCULAR HEMOGLOBIN 34.1 pg (25.0-35.0); MEAN CORPUSCULAR HGB CONC 33.5 g/dl (31.0-37.0); MEAN PLATELET VOLUME 9.1 fl (7.0-11.0); MONO # 1.9 (0.1-0.6); MONO % 12.2 % (1.0-6.0); RBC 2.26 10^6/uL (3.5-6.1); RED CELL DISTRIBUTION WIDTH 19.2 % (11.5-14.5); WHITE BLOOD COUNT 15.4 10^3/ul (4.5-11.0)
[2018-05-27 08:08] LABS: INR 0.99; PROTHROMBIN TIME 11.4 SECONDS (9.4-12.5)
[2018-05-27 08:11] LABS: PARTIAL THROMBOPLASTIN TIME 89.4 Seconds (25.1-36.5)
[2018-05-27 08:15] LABS: HEMOGLOBIN 7.7 g/dL (14.0-18.0)
[2018-05-27 08:35] LABS: ALB/GLOB RATIO 1.2 (1.1-1.8); ALBUMIN 2.9 g/dL (3.0-4.8); ALT/SGPT 29 U/L (7-56); AST/SGOT 22 U/L (17-59); BLOOD UREA NITROGEN 31 mg/dL (7-21); CALCIUM 8.6 mg/dL (8.4-10.5); GFR AFRICAN-AMERICAN > 60; GFR NON-AFRICAN AMERICAN > 60
[2018-05-27] MEDS: Oxycodone/Acetaminophen 5/325 mg Tab PO PRN ×2 (10:48→18:52)
[2018-05-27] MEDS: Bacitracin 500 Units/gm Oint Foilpak UD TOP SCH (10:51)
[2018-05-27 17:19] VITALS: O2SAT 98
--- NOTE | 2018-05-27 19:32 | PN ---
Copied To: Usman Jensen MD Attending MD: Usman Jensen MD DATE: 05/27/2018 SUBJECTIVE: The patient is in bed, in no acute distress, nontoxic. PHYSICAL EXAMINATION: VITAL SIGNS: Temperature is 98, blood pressure is 120/60, respiratory rate 16. HEENT: Unremarkable. NECK: Supple. LUNGS: Have decreased breath sounds. HEART: Normal S1, S2. ABDOMINAL: Soft. LABORATORY EXAMINATION: Reveals the patient's white count is up to 15,400, hemoglobin of 7, platelets are noted and coagulation is noted and chemistries reveals a BUN of 31, creatinine of 0.8. Procalcitonin is 7.05. Urinalysis is noted. Microbiology is noted. Review of orders, the patient is off of antibiotics. The patient is on prednisone which was started on 05/25. ASSESSMENT AND PLAN: A 77-year-old male seen earlier in 572, bed 2 with systemic inflammatory response syndrome and ecchymosis secondary to coagulopathy, dyslipidemia, hypertension, benign prostatic hypertrophy, history of nephrolithiasis, history of cataract and he has completed the antibiotic therapy. Currently off of antibiotics, currently with leukocytosis of 15,400 and heart rate of 93 and new systemic inflammatory response syndrome. The patient is on prednisone. We follow closely with you. Usman Jensen MD : 05/27/2018 14:23:04
--- NOTE | 2018-05-27 20:35 | PN ---
Copied To: Keanu Dewitt MD Attending MD: Keanu Dewitt MD DATE: 05/27/2018 SUBJECTIVE: The patient has no complaints of any chest pain. No shortness of breath. No headaches or dizziness. PHYSICAL EXAMINATION: VITAL SIGNS: Temperature is 97.6, pulse of 72, blood pressure is 126/78, respirations 20. GENERAL: The patient is lying in bed, flat, comfortable. HEENT: No oral lesion. Anicteric sclerae. Moist mucosa. NECK: No JVD, adenopathy, or thyromegaly. CARDIOVASCULAR: S1 and S2, regular. No murmurs, rubs, or gallops. LUNGS: Clear to auscultation bilaterally. No wheeze, rales, or rhonchi. ABDOMEN: Bowel sounds are positive, soft, nontender and nondistended. EXTREMITIES: No cyanosis, clubbing, or edema. LABORATORY DATA: White count of 15.4, hemoglobin 7.7. Creatinine is 0.8. ASSESSMENT: 1. Acute anemia secondary to bleeding. 2. Coagulopathy. 3. Hypertension. 4. Dyslipidemia. 5. Benign prostatic hypertrophy. PLAN: The patient has acute loss in his hemoglobin. He was given factor VIII 2000 units IV push yesterday. Dr. Pathak is following the patient. He is going to be transferred to the Oncology floor. He is to get Cytoxan tomorrow. The patient is on Flomax and is on Pepcid. He is going to continue with prednisone. He is on lisinopril for hypertension. I did speak to the patient's and daughter at the bedside. The patient's ANCA has been negative. Keanu Dewitt MD
--- NOTE | 2018-05-27 23:17 | CP.PCM.PN ---
Subjective - Date & Time of Evaluation Date of Evaluation: 05/26/18 Time of Evaluation: 13:00 - Subjective Subjective: He is comfortable in bed. Ecchymosis on front and back of the abdomen slightly increased. . Hemoglobin hematocrit has been stable. 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 Factor VIII inhibitor is present. Inhibitor levels are still pending. Factor VIII has been ordered for him. He has received two doses of NOVOSEVEN prior to diagnosis of factor VIII deficiency. He has required several units of blood transfusion since hospitalization. Objective - Vital Signs/Intake and Output Vital Signs (last 24 hours): Temp Pulse Resp BP Pulse Ox 98.2 F 109 H 20 111/62 98 05/27/18 17:18 05/27/18 17:18 05/27/18 17:18 05/27/18 17:18 05/27/18 17:18 - Medications Medications: Current Medications Acetaminophen (Tylenol 325mg Tab) 650 mg PO Q4H PRN PRN Reason: Pain Last Admin: 05/25/18 12:34 Dose: 650 mg Bacitracin (Bacitracin) 1 ea TOP DAILY [facility] Last Admin: 05/27/18 10:51 Dose: 1 ea Famotidine (Pepcid) 20 mg PO 1000,2200 [facility] Last Admin: 05/27/18 22:01 Dose: 20 mg Finasteride (Proscar) 5 mg PO DAILY [facility] Last Admin: 05/27/18 10:47 Dose: 5 mg Lisinopril (Zestril) 5 mg PO DAILY [facility] Last Admin: 05/27/18 10:52 Dose: 5 mg Ondansetron HCl (Zofran Inj) 4 mg IVP Q6H PRN PRN Reason: Nausea/Vomiting Oxycodone/Acetaminophen (Percocet 5/325 Mg Tab) 1 tab PO Q6H PRN PRN Reason: Pain, severe (8-10) Stop: 05/28/18 18:34 Last Admin: 05/27/18 18:52 Dose: 1 tab Prednisone (Prednisone Tab) 30 mg PO DAILY [facility] Last Admin: 05/27/18 10:56 Dose: 30 mg Tamsulosin HCl (Flomax) 0.4 mg PO DAILY [facility] Last Admin: 05/27/18 10:51 Dose: 0.4 mg - Labs Labs: 05/27/18 07:30 05/27/18 07:30 PT 11.4 SECONDS (9.4-12.5) 05/27/18 07:30 INR 0.99 05/27/18 07:30 APTT 89.4 Seconds (25.1-36.5) H 05/27/18 07:30 - Constitutional Appears: Chronically Ill - Head Exam Head Exam: ATRAUMATIC, NORMAL INSPECTION, NORMOCEPHALIC - Eye Exam Eye Exam: Normal appearance - Neck Exam Neck Exam: Full ROM, Normal Inspection - Respiratory Exam Respiratory Exam: Clear to Ausculation Bilateral, NORMAL BREATHING PATTERN - Cardiovascular Exam Cardiovascular Exam: REGULAR RHYTHM, +S1, +S2 - GI/Abdominal Exam GI & Abdominal Exam: Soft, Normal Bowel Sounds - Extremities Exam Extremities Exam: Normal Inspection - Back Exam Back Exam: NORMAL INSPECTION - Neurological Exam Neurological Exam: Alert, Awake, Oriented x3 - Psychiatric Exam Psychiatric exam: Normal Affect - Skin Additional comments: extensive ecchymosis in front, back abdomen , arms, slightly increased. 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 Factor VIII inhibitor is present. Inhibitor levels are still pending. He has received two doses of NOVOSEVEN prior to diagnosis of factor VIII deficiency. He has required several units of blood transfusion since hospitalization. Factor VIII IV push 2000 unit given today. No reactions to the infusion. Prednisone 30 mg PO daily started for presence of inhibitor. We will also add Cytoxan that might expedite clearance of inhibitor. PICC line can be placed today. He will need continuation of factor VIII infusions initially few dozes until ecchymosis are stable. Once clinically stable he will need maintenance dozes 2 to 3 times per week until inhibitor is cleared. 2. Severe anemia, likely due to subcutaneous bleeding due to coagulopathy. Will transfuse PRBC as needed for hemoglobin less than 8 g/dL. Family has been informed about factor VIII deficiency, need for factor infusions , low-dose Cytoxan. daughter signed the consent for IV Cytoxan, Discuss with Dr. Dewitt, discussed with the staff nurse.
--- NOTE | 2018-05-27 23:27 | CP.PCM.PN ---
Subjective - Date & Time of Evaluation Date of Evaluation: 05/24/18 Time of Evaluation: 09:00 - Subjective Subjective: He's comfortable , no acute distress. Ecchymosis in front and back are stable , there is no progression . Status post two doses of NovoSeven. Complaining of back pain. Hemoglobin hematocrit stable. Objective - Vital Signs/Intake and Output Vital Signs (last 24 hours): Temp Pulse Resp BP Pulse Ox 98.2 F 109 H 20 111/62 98 05/27/18 17:18 05/27/18 17:18 05/27/18 17:18 05/27/18 17:18 05/27/18 17:18 - Medications Medications: Current Medications Acetaminophen (Tylenol 325mg Tab) 650 mg PO Q4H PRN PRN Reason: Pain Last Admin: 05/25/18 12:34 Dose: 650 mg Bacitracin (Bacitracin) 1 ea TOP DAILY [facility] Last Admin: 05/27/18 10:51 Dose: 1 ea Famotidine (Pepcid) 20 mg PO 1000,2200 [facility] Last Admin: 05/27/18 22:01 Dose: 20 mg Finasteride (Proscar) 5 mg PO DAILY [facility] Last Admin: 05/27/18 10:47 Dose: 5 mg Lisinopril (Zestril) 5 mg PO DAILY [facility] Last Admin: 05/27/18 10:52 Dose: 5 mg Ondansetron HCl (Zofran Inj) 4 mg IVP Q6H PRN PRN Reason: Nausea/Vomiting Oxycodone/Acetaminophen (Percocet 5/325 Mg Tab) 1 tab PO Q6H PRN PRN Reason: Pain, severe (8-10) Stop: 05/28/18 18:34 Last Admin: 05/27/18 18:52 Dose: 1 tab Prednisone (Prednisone Tab) 30 mg PO DAILY [facility] Last Admin: 05/27/18 10:56 Dose: 30 mg Tamsulosin HCl (Flomax) 0.4 mg PO DAILY [facility] Last Admin: 05/27/18 10:51 Dose: 0.4 mg - Labs Labs: 05/27/18 07:30 05/27/18 07:30 PT 11.4 SECONDS (9.4-12.5) 05/27/18 07:30 INR 0.99 05/27/18 07:30 APTT 89.4 Seconds (25.1-36.5) H 05/27/18 07:30 - Constitutional Appears: Non-toxic - Head Exam Head Exam: ATRAUMATIC, NORMAL INSPECTION, NORMOCEPHALIC - Eye Exam Eye Exam: Normal appearance Pupil Exam: NORMAL ACCOMODATION - Neck Exam Neck Exam: Normal Inspection - Respiratory Exam Respiratory Exam: Clear to Ausculation Bilateral, NORMAL BREATHING PATTERN - Cardiovascular Exam Cardiovascular Exam: REGULAR RHYTHM, +S1, +S2 - GI/Abdominal Exam GI & Abdominal Exam: Soft, Normal Bowel Sounds - Back Exam Back Exam: NORMAL INSPECTION - Neurological Exam Neurological Exam: Alert, Awake, Oriented x3 Neuro motor strength exam: Left Upper Extremity: 3 - Psychiatric Exam Psychiatric exam: Normal Affect - Skin Additional comments: Ecchymosis front and back on abdomen lower chest. Ecchymosis on both arms. Assessment and Plan - Assessment and Plan (Free Text) Assessment: 1. Extensive ecchymosis on chest and abdomen. Status post two doses of NovoSeven. Ecchymosis stable now. Mixing started showed inhibitor. Factor levels are still pending. Prednisone 30 mg PO daily for presence of inhibitor. Definitely affected infusion will be given once the results are available. CT chest abdomen and pelvis negative any suspicious lesion for cancer. Tumor markers are not elevated. 2. Severe anemia, likely due to subcutaneous bleeding. Will monitor hemoglobin hematocrit closely. Hemoglobin stable. 3. Discuss with the staff nurse for bedside physical therapy. He can be out of bed to chair. Discussed with the family bedside about the possibility of acquired hemophilia.
[2018-05-28 06:38] LABS: MEAN CORPUSCULAR HEMOGLOBIN 34.7 pg (25.0-35.0); MEAN CORPUSCULAR HGB CONC 33.3 g/dl (31.0-37.0); MEAN PLATELET VOLUME 9.3 fl (7.0-11.0); RBC 2.02 10^6/uL (3.5-6.1); RED CELL DISTRIBUTION WIDTH 19.6 % (11.5-14.5); WHITE BLOOD COUNT 16.6 10^3/ul (4.5-11.0)
[2018-05-28 07:06] LABS: ALB/GLOB RATIO 1.1 (1.1-1.8); ALBUMIN 2.9 g/dL (3.0-4.8); ALT/SGPT 42 U/L (7-56); AST/SGOT 17 U/L (17-59); BLOOD UREA NITROGEN 40 mg/dL (7-21); CALCIUM 8.3 mg/dL (8.4-10.5); GFR AFRICAN-AMERICAN > 60; GFR NON-AFRICAN AMERICAN > 60
[2018-05-28] MEDS: Bacitracin 500 Units/gm Oint Foilpak UD TOP SCH (09:37)
[2018-05-28] MEDS ORDERED: ANTIHEMOPHILIC FACTOR IVP ONE (11:00)
[2018-05-28 12:16] VITALS: RESP 20
--- NOTE | 2018-05-28 13:06 | CP.PCM.DIS ---
<BrennaLyn - Last Filed: 05/28/18 15:21> Provider - Provider Date of Admission: 05/18/18 16:15 Attending physician: Keanu Dewitt MD Primary care physician: Tye Rider MD Consults: Drs. pathak (heme), Mikey (ID) Time Spent in preparation of Discharge (in minutes): 30 Diagnosis - Discharge Diagnosis (1) Acquired hemophilia A Status: Acute (2) Acute blood loss anemia Status: Acute Hospital Course - Lab Results Lab Results: Micro Results 05/22/18 10:00 Blood Blood Culture - Final NO GROWTH AFTER 5 DAYS 05/22/18 10:00 Blood Gram Stain - Final TEST NOT PERFORMED 05/22/18 09:30 Blood Blood Culture - Final NO GROWTH AFTER 5 DAYS 05/22/18 09:30 Blood Gram Stain - Final TEST NOT PERFORMED 05/20/18 17:00 Blood Blood Culture - Final NO GROWTH AFTER 5 DAYS 05/20/18 17:00 Blood Gram Stain - Final TEST NOT PERFORMED 05/20/18 16:00 Blood Blood Culture - Final NO GROWTH AFTER 5 DAYS 05/20/18 16:00 Blood Gram Stain - Final TEST NOT PERFORMED 05/23/18 08:42 Urine Urine Culture - Final No Growth (<1,000 CFU/ML) Most Recent Lab Values WBC 16.6 10^3/ul (4.5-11.0) H 05/28/18 06:10 RBC 2.02 10^6/uL (3.5-6.1) L 05/28/18 06:10 Hgb 7.0 g/dL (14.0-18.0) L 05/28/18 06:10 Hct 21.0 % (42.0-52.0) L 05/28/18 06:10 MCV 104.0 fl (80.0-105.0) 05/28/18 06:10 MCH 34.7 pg (25.0-35.0) 05/28/18 06:10 MCHC 33.3 g/dl (31.0-37.0) 05/28/18 06:10 RDW 19.6 % (11.5-14.5) H 05/28/18 06:10 Plt Count 204 10^3/uL (120.0-450.0) 05/28/18 06:10 MPV 9.3 fl (7.0-11.0) 05/28/18 06:10 Gran % 75.6 % (50.0-68.0) H 05/27/18 07:30 Lymph % (Auto) 11.8 % (22.0-35.0) L 05/27/18 07:30 [place] % (Auto) 12.2 % (1.0-6.0) H 05/27/18 07:30 Eos % (Auto) 0.3 % (1.5-5.0) L 05/27/18 07:30 Baso % (Auto) 0.1 % (0.0-3.0) 05/27/18 07:30 Gran # 11.65 (1.4-6.5) H 05/27/18 07:30 Lymph # (Auto) 1.8 (1.2-3.4) 05/27/18 07:30 [place] # (Auto) 1.9 (0.1-0.6) H 05/27/18 07:30 Eos # (Auto) 0.1 (0.0-0.7) 05/27/18 07:30 Baso # (Auto) 0.02 K/mm3 (0.0-2.0) 05/27/18 07:30 Differential Comment See pathology report 05/21/18 06:30 Haptoglobin 69.7 mg/dL (30.0-200.0) 05/21/18 08:30 PT 11.4 SECONDS (9.4-12.5) 05/27/18 07:30 INR 0.99 05/27/18 07:30 APTT 89.4 Seconds (25.1-36.5) H 05/27/18 07:30 Mix PT Baseline TNP 05/21/18 09:00 PT Incubation Time TNP 05/21/18 09:00 Fibrinogen 272 mg/dl (200-393) 05/20/18 12:20 Lupus Anticoag PTT Mix Not corrected 05/21/18 09:00 Factor VII 103 % (60-150) 05/21/18 09:00 Factor VIII Activity <1 % (50-180) L 05/20/18 12:20 Factor IX Activity 106 % (60-160) 05/20/18 12:20 Factor XI 60 % (65-150) L 05/20/18 12:20 Factor XII Activity 69 % (50-150) 05/20/18 12:20 pO2 38 mm/Hg (30-55) 05/18/18 18:56 VBG pH 7.40 (7.32-7.43) 05/18/18 18:56 VBG pCO2 41.0 (40-60) 05/18/18 18:56 VBG HCO3 25.4 mmol/l (21-28) 05/18/18 18:56 VBG Total CO2 26.7 mmol.L (22-28) 05/18/18 18:56 VBG O2 Sat (Calc) 77.6 % (40-65) H 05/18/18 18:56 VBG Base Excess 0.5 mmol/L (0.0-2.0) 05/18/18 18:56 VBG Potassium 4.5 mmol/L (3.6-5.2) 05/18/18 18:56 Sodium 134.0 mmol/L (132-148) 05/18/18 18:56 Chloride 105.0 mmol/L (98-107) 05/18/18 18:56 Glucose 140 mg/dl (75-110) H 05/18/18 18:56 Lactate 2.0 mmol/L (0.7-2.1) 05/18/18 18:56 FiO2 21.0 % 05/18/18 18:56 Sodium 131 mmol/L (132-148) L 05/28/18 06:10 Potassium 4.9 mmol/L (3.6-5.0) 05/28/18 06:10 Chloride 100 mmol/L (98-107) 05/28/18 06:10 Carbon Dioxide 25 mmol/L (21-33) 05/28/18 06:10 Anion Gap 11 (10-20) 05/28/18 06:10 BUN 40 mg/dL (7-21) H 05/28/18 06:10 Creatinine 0.8 mg/dl (0.8-1.5) 05/28/18 06:10 Est GFR ( Amer) > 60 05/28/18 06:10 Est GFR (Non-Af Amer) > 60 05/28/18 06:10 POC Glucose (mg/dL) 143 mg/dL (65-110) H 05/24/18 11:42 Random Glucose 106 mg/dL (70-110) 05/28/18 06:10 Calcium 8.3 mg/dL (8.4-10.5) L 05/28/18 06:10 Magnesium 1.9 mg/dL (1.7-2.2) 05/18/18 14:40 Iron 115 ug/dL (45-180) 05/19/18 07:00 TIBC 237 ug/dL (261-462) L 05/19/18 07:00 % Saturation 49 % (20-55) 05/19/18 07:00 Ferritin 29.2 ng/mL 05/19/18 07:00 Total Bilirubin 1.9 mg/dL (0.2-1.3) H 05/28/18 06:10 Direct Bilirubin 0.3 mg/dL (0.0-0.4) 05/21/18 08:30 AST 17 U/L (17-59) D 05/28/18 06:10 ALT 42 U/L (7-56) 05/28/18 06:10 Alkaline Phosphatase 44 U/L (38-126) 05/28/18 06:10 Lactate Dehydrogenase 628 U/L (333-699) 05/21/18 08:30 Total Creatine Kinase 26 U/L (35-230) L 05/18/18 14:40 Troponin I < 0.01 ng/mL 05/18/18 14:40 Total Protein 5.4 g/dL (5.8-8.3) L 05/28/18 06:10 Albumin 2.9 g/dL (3.0-4.8) L 05/28/18 06:10 Globulin 2.5 gm/dL 05/28/18 06:10 Albumin/Globulin Ratio 1.1 (1.1-1.8) 05/28/18 06:10 Carcinoembryonic Ag 0.6 ng/mL (0.0-3.0) 05/21/18 06:30 CA 19-9 Antigen 11.3 U/mL (0-37) 05/21/18 06:30 Prostate Specific Ag 1.9 ng/mL (0.00-2.5) 05/21/18 06:30 Vitamin B12 689 pg/mL (239-931) 05/19/18 07:00 Folate > 20.0 ng/mL 05/19/18 07:00 Procalcitonin < 0.05 NG/ML (0.19-0.49) L 05/22/18 09:30 Venous Blood Potassium 4.5 mmol/L (3.6-5.2) 05/18/18 18:56 Urine Color Yellow (YELLOW) 05/23/18 08:43 Urine Appearance Clear (CLEAR) 05/23/18 08:43 Urine pH 6.5 (4.7-8.0) 05/23/18 08:43 Ur Specific [place] 1.010 (1.005-1.035) 05/23/18 08:43 Urine Protein Negative mg/dL (<30 mg/dL) 05/23/18 08:43 Urine Glucose (UA) Negative mg/dL (NEGATIVE) 05/23/18 08:43 Urine Ketones Negative mg/dL (NEGATIVE) 05/23/18 08:43 Urine Blood Negative (NEGATIVE) 05/23/18 08:43 Urine Nitrate Negative (NEGATIVE) 05/23/18 08:43 Urine Bilirubin Negative (NEGATIVE) 05/23/18 08:43 Urine Urobilinogen 0.2 E.U./dL (<1 E.U./dL) 05/23/18 08:43 Ur Leukocyte Esterase Negative [place]/uL (NEGATIVE) 05/23/18 08:43 Stool Occult Blood Negative (NEGATIVE) 05/23/18 14:30 GUSTAVO Nuclear Membr Pat Negative (Negative) 05/20/18 12:20 Blood Type O POSITIVE 05/28/18 10:00 Blood Type Confirm O POSITIVE 05/18/18 17:10 Antibody Screen Negative 05/28/18 10:00 Crossmatch See Detail 05/28/18 10:00 Reaction Clerical Check No discrepancy (NO DISCREPA) 05/20/18 16:00 Pre-Trans Blood Type O POSITIVE 05/20/18 16:00 Pre-Trans Bld Appearanc No hemolysis (NO HEMOLYSI) 05/20/18 16:00 Pre-Trans GEMMA Negative (NEGATIVE) 05/20/18 16:00 Post-Trans Blood Type O POSITIVE 05/20/18 16:00 Post-Trans Spec Appear No hemolysis (NO HEMOLYSI) 05/20/18 16:00 Post-Trans GEMMA Negative (NEGATIVE) 05/20/18 16:00 Reaction Pathol Review 05/20/18 16:00 BBK History Checked Patient has bt 05/28/18 10:00 - Hospital Course Hospital Course: PGY-[address] Dewitt Mr Rosenberg, 77M, with PMHx of HTN/HLD, BPH, blind at , was sent by PMD Dr Rider for chest discomfort, R sided flank pain with ecchymosis, and generalized body aches on 05/18. He was feeling dizzy. he was admitted at [facility] with similar complaints. On admission, He had diffuse ecchymosis on his trunk and extremities. his Hb was 6.5. Aptt was elevated at 87.5 with normal PT/INR. He was found to have coagulopathy with ecchymosis. To work up on possible causes of the coagulopahty, factor study was sent and would take 1 week to come back. CXR (05/18) was negative for acute disease and CT abd/pelvis w/o contrast (05/18) showed no acute abnormality. trops <0.01. For his acute anemia secondary to blood loss from coagulopahty, he got 3u RBC. Hb rises to 9-10 over the weekend but drops down to 7 today (in 2 days). He is currently receiving 2u prbc. As for his coagulopathy, he received Novo7 x 2, 1 FFP, 1 Cryoprep. The mixing study and the factor study came back 3 days ago, which showed positive for inhibitor to factor 8. Factor 8 activity was less than 1%. He was found to have severe acquired hemophilia A. He was put on prednisone 30 daily; transfused with factor 8 twice. His Hb dropped from 9.8 to 7 in 2 days despite factor transfusion and steroid. He is put on a heart monitor for acute anemia. He was scheduled to have cytoxin today or tomorrow, pending availability from another hospital. He will be transfused 2 more pRBC today. He has diffuse body ache likely hemarthrosis, controlled by tylenol and percocet pRN After the first prbc transfusion on admission, he developed blister and itch on the arm receiveing the blood. Benadryl relieved the symptoms and pending transfusion reaction study to come back. He did not have any reaction to subsequent blood products. His WBC trends up to 22 likely SIRS to ecchymosis and the acquired coagulopathy. His drop in Hb seems to coincide with spikes in WBC. He was on Cefepime x 6 days and Vancomycin x 4 days. Blood culture (05/20) and (05/22) were neg x 5d. Currently he is observe off antibiotics. Due to severity of his coagulopathy and Hb drops despite steroid and factor placement, he was transfer to tertiary care center for timely administration of chemotherapy or perhaps plasma pheresis. Other labs: occult blood stool, GUSTAVO: Negative CA 19-9, CEA, PSA: NORMAL Folate, B12: NORMAL; TIBC: low 237; Fe, ferritin, %Sat normal Discharge Exam - Head Exam Head Exam: ATRAUMATIC, NORMAL INSPECTION, NORMOCEPHALIC - Eye Exam Eye Exam: absent: Scleral icterus Additional comments: blind - ENT Exam ENT Exam: Mucous Membranes Moist - Neck Exam Additional comments: supple - Respiratory Exam Respiratory Exam: Clear to PA & Lateral, NORMAL BREATHING PATTERN. absent: Decreased Breath Sounds, Rales, Rhonchi, Wheezes - Cardiovascular Exam Cardiovascular Exam: REGULAR RHYTHM, +S1, +S2. absent: Systolic Murmur - GI/Abdominal Exam GI & Abdominal Exam: Normal Bowel Sounds, Soft. absent: Distended, Guarding, Rigid, Tenderness - Extremities Exam Extremities exam: pedal pulses present - Back Exam Additional comments: Ecchymosis about 1/3 of trunk, within the outline marked, dark purple - Neurological Exam Neurological exam: Alert, Oriented x3 - Psychiatric Exam Psychiatric exam: Normal Affect, Normal Mood - Skin Skin Exam: Dry, Warm Discharge Plan - Follow Up Plan Condition: SERIOUS Disposition: OTHER INSTITUTION Instructions: Hemophilia, Anemia of Chronic Disease, Taking Care of Bruises Referrals: Tye Rider MD [Primary Care Provider] - <Keanu Dewitt - Last Filed: 05/28/18 21:44> Provider - Provider Date of Admission: 05/18/18 16:15 Attending physician: Keanu Dewitt MD Primary care physician: Tye Rider MD Hospital Course - Lab Results Lab Results: Micro Results 05/22/18 10:00 Blood Blood Culture - Final NO GROWTH AFTER 5 DAYS 05/22/18 10:00 Blood Gram Stain - Final TEST NOT PERFORMED 05/22/18 09:30 Blood Blood Culture - Final NO GROWTH AFTER 5 DAYS 05/22/18 09:30 Blood Gram Stain - Final TEST NOT PERFORMED 05/20/18 17:00 Blood Blood Culture - Final NO GROWTH AFTER 5 DAYS 05/20/18 17:00 Blood Gram Stain - Final TEST NOT PERFORMED 05/20/18 16:00 Blood Blood Culture - Final NO GROWTH AFTER 5 DAYS 05/20/18 16:00 Blood Gram Stain - Final TEST NOT PERFORMED 05/23/18 08:42 Urine Urine Culture - Final No Growth (<1,000 CFU/ML) Most Recent Lab Values WBC 16.6 10^3/ul (4.5-11.0) H 05/28/18 06:10 RBC 2.02 10^6/uL (3.5-6.1) L 05/28/18 06:10 Hgb 7.0 g/dL (14.0-18.0) L 05/28/18 06:10 Hct 21.0 % (42.0-52.0) L 05/28/18 06:10 MCV 104.0 fl (80.0-105.0) 05/28/18 06:10 MCH 34.7 pg (25.0-35.0) 05/28/18 06:10 MCHC 33.3 g/dl (31.0-37.0) 05/28/18 06:10 RDW 19.6 % (11.5-14.5) H 05/28/18 06:10 Plt Count 204 10^3/uL (120.0-450.0) 05/28/18 06:10 MPV 9.3 fl (7.0-11.0) 05/28/18 06:10 Gran % 75.6 % (50.0-68.0) H 05/27/18 07:30 Lymph % (Auto) 11.8 % (22.0-35.0) L 05/27/18 07:30 [place] % (Auto) 12.2 % (1.0-6.0) H 05/27/18 07:30 Eos % (Auto) 0.3 % (1.5-5.0) L 05/27/18 07:30 Baso % (Auto) 0.1 % (0.0-3.0) 05/27/18 07:30 Gran # 11.65 (1.4-6.5) H 05/27/18 07:30 Lymph # (Auto) 1.8 (1.2-3.4) 05/27/18 07:30 [place] # (Auto) 1.9 (0.1-0.6) H 05/27/18 07:30 Eos # (Auto) 0.1 (0.0-0.7) 05/27/18 07:30 Baso # (Auto) 0.02 K/mm3 (0.0-2.0) 05/27/18 07:30 Differential Comment See pathology report 05/21/18 06:30 Haptoglobin 69.7 mg/dL (30.0-200.0) 05/21/18 08:30 PT 11.4 SECONDS (9.4-12.5) 05/27/18 07:30 INR 0.99 05/27/18 07:30 APTT 89.4 Seconds (25.1-36.5) H 05/27/18 07:30 Mix PT Baseline TNP 05/21/18 09:00 PT Incubation Time TNP 05/21/18 09:00 Fibrinogen 272 mg/dl (200-393) 05/20/18 12:20 Lupus Anticoag PTT Mix Not corrected 05/21/18 09:00 Factor VII 103 % (60-150) 05/21/18 09:00 Factor VIII Activity <1 % (50-180) L 05/20/18 12:20 Factor IX Activity 106 % (60-160) 05/20/18 12:20 Factor XI 60 % (65-150) L 05/20/18 12:20 Factor XII Activity 69 % (50-150) 05/20/18 12:20 pO2 38 mm/Hg (30-55) 05/18/18 18:56 VBG pH 7.40 (7.32-7.43) 05/18/18 18:56 VBG pCO2 41.0 (40-60) 05/18/18 18:56 VBG HCO3 25.4 mmol/l (21-28) 05/18/18 18:56 VBG Total CO2 26.7 mmol.L (22-28) 05/18/18 18:56 VBG O2 Sat (Calc) 77.6 % (40-65) H 05/18/18 18:56 VBG Base Excess 0.5 mmol/L (0.0-2.0) 05/18/18 18:56 VBG Potassium 4.5 mmol/L (3.6-5.2) 05/18/18 18:56 Sodium 134.0 mmol/L (132-148) 05/18/18 18:56 Chloride 105.0 mmol/L (98-107) 05/18/18 18:56 Glucose 140 mg/dl (75-110) H 05/18/18 18:56 Lactate 2.0 mmol/L (0.7-2.1) 05/18/18 18:56 FiO2 21.0 % 05/18/18 18:56 Sodium 131 mmol/L (132-148) L 05/28/18 06:10 Potassium 4.9 mmol/L (3.6-5.0) 05/28/18 06:10 Chloride 100 mmol/L (98-107) 05/28/18 06:10 Carbon Dioxide 25 mmol/L (21-33) 05/28/18 06:10 Anion Gap 11 (10-20) 05/28/18 06:10 BUN 40 mg/dL (7-21) H 05/28/18 06:10 Creatinine 0.8 mg/dl (0.8-1.5) 05/28/18 06:10 Est GFR ( Amer) > 60 05/28/18 06:10 Est GFR (Non-Af Amer) > 60 05/28/18 06:10 POC Glucose (mg/dL) 143 mg/dL (65-110) H 05/24/18 11:42 Random Glucose 106 mg/dL (70-110) 05/28/18 06:10 Calcium 8.3 mg/dL (8.4-10.5) L 05/28/18 06:10 Magnesium 1.9 mg/dL (1.7-2.2) 05/18/18 14:40 Iron 115 ug/dL (45-180) 05/19/18 07:00 TIBC 237 ug/dL (261-462) L 05/19/18 07:00 % Saturation 49 % (20-55) 05/19/18 07:00 Ferritin 29.2 ng/mL 05/19/18 07:00 Total Bilirubin 1.9 mg/dL (0.2-1.3) H 05/28/18 06:10 Direct Bilirubin 0.3 mg/dL (0.0-0.4) 05/21/18 08:30 AST 17 U/L (17-59) D 05/28/18 06:10 ALT 42 U/L (7-56) 05/28/18 06:10 Alkaline Phosphatase 44 U/L (38-126) 05/28/18 06:10 Lactate Dehydrogenase 628 U/L (333-699) 05/21/18 08:30 Total Creatine Kinase 26 U/L (35-230) L 05/18/18 14:40 Troponin I < 0.01 ng/mL 05/18/18 14:40 Total Protein 5.4 g/dL (5.8-8.3) L 05/28/18 06:10 Albumin 2.9 g/dL (3.0-4.8) L 05/28/18 06:10 Globulin 2.5 gm/dL 05/28/18 06:10 Albumin/Globulin Ratio 1.1 (1.1-1.8) 05/28/18 06:10 Carcinoembryonic Ag 0.6 ng/mL (0.0-3.0) 05/21/18 06:30 CA 19-9 Antigen 11.3 U/mL (0-37) 05/21/18 06:30 Prostate Specific Ag 1.9 ng/mL (0.00-2.5) 05/21/18 06:30 Vitamin B12 689 pg/mL (239-931) 05/19/18 07:00 Folate > 20.0 ng/mL 05/19/18 07:00 Procalcitonin < 0.05 NG/ML (0.19-0.49) L 05/22/18 09:30 Venous Blood Potassium 4.5 mmol/L (3.6-5.2) 05/18/18 18:56 Urine Color Yellow (YELLOW) 05/23/18 08:43 Urine Appearance Clear (CLEAR) 05/23/18 08:43 Urine pH 6.5 (4.7-8.0) 05/23/18 08:43 Ur Specific [place] 1.010 (1.005-1.035) 05/23/18 08:43 Urine Protein Negative mg/dL (<30 mg/dL) 05/23/18 08:43 Urine Glucose (UA) Negative mg/dL (NEGATIVE) 05/23/18 08:43 Urine Ketones Negative mg/dL (NEGATIVE) 05/23/18 08:43 Urine Blood Negative (NEGATIVE) 05/23/18 08:43 Urine Nitrate Negative (NEGATIVE) 05/23/18 08:43 Urine Bilirubin Negative (NEGATIVE) 05/23/18 08:43 Urine Urobilinogen 0.2 E.U./dL (<1 E.U./dL) 05/23/18 08:43 Ur Leukocyte Esterase Negative [place]/uL (NEGATIVE) 05/23/18 08:43 Stool Occult Blood Negative (NEGATIVE) 05/23/18 14:30 GUSTAVO Nuclear Membr Pat Negative (Negative) 05/20/18 12:20 Blood Type O POSITIVE 05/28/18 10:00 Blood Type Confirm O POSITIVE 05/18/18 17:10 Antibody Screen Negative 05/28/18 10:00 Crossmatch See Detail 05/28/18 10:00 Reaction Clerical Check No discrepancy (NO DISCREPA) 05/20/18 16:00 Pre-Trans Blood Type O POSITIVE 05/20/18 16:00 Pre-Trans Bld Appearanc No hemolysis (NO HEMOLYSI) 05/20/18 16:00 Pre-Trans GEMMA Negative (NEGATIVE) 05/20/18 16:00 Post-Trans Blood Type O POSITIVE 05/20/18 16:00 Post-Trans Spec Appear No hemolysis (NO HEMOLYSI) 05/20/18 16:00 Post-Trans GEMMA Negative (NEGATIVE) 05/20/18 16:00 Reaction Pathol Review 05/20/18 16:00 BBK History Checked Patient has bt 05/28/18 10:00 - Hospital Course Hospital Course: Pt seen and examined. I have reviewed the note of the medical billing coordinator and agree with it. I have discussed the assessment and plan with the resident. I have reviewed the patient's labs and medications. Pt with coagulopathy. He continues to bleed. Pt with Factor 8 inhibitor. He is not improving with steroids. Spoke to Dr Pathak.
[2018-05-28] MEDS: Oxycodone/Acetaminophen 5/325 mg Tab PO PRN ×2 (14:57→18:31)
--- NOTE | 2018-05-28 15:03 | CP.PCM.PN ---
Subjective - Date & Time of Evaluation Date of Evaluation: 05/28/18 Time of Evaluation: 11:25 - Subjective Subjective: No fevers, not in distress, no pains in the abdomen or back currently. Objective - Vital Signs/Intake and Output Vital Signs (last 24 hours): Temp Pulse Resp BP Pulse Ox 97.6 F 82 19 111/60 98 05/28/18 08:26 05/28/18 09:41 05/28/18 08:26 05/28/18 09:41 05/28/18 08:26 Intake and Output: 05/28/18 05/28/18 06:59 18:59 Intake Total 300 Balance 300 - Medications Medications: Current Medications Acetaminophen (Tylenol 325mg Tab) 650 mg PO Q4H PRN PRN Reason: Pain Last Admin: 05/25/18 12:34 Dose: 650 mg Bacitracin (Bacitracin) 1 ea TOP DAILY [facility] Last Admin: 05/28/18 09:37 Dose: 1 ea Famotidine (Pepcid) 20 mg PO 1000,2200 [facility] Last Admin: 05/28/18 09:40 Dose: 20 mg Finasteride (Proscar) 5 mg PO DAILY [facility] Last Admin: 05/28/18 09:41 Dose: 5 mg Lisinopril (Zestril) 5 mg PO DAILY [facility] Last Admin: 05/28/18 09:41 Dose: 5 mg Ondansetron HCl (Zofran Inj) 4 mg IVP Q6H PRN PRN Reason: Nausea/Vomiting Last Admin: 05/28/18 09:42 Dose: 4 mg Oxycodone/Acetaminophen (Percocet 5/325 Mg Tab) 1 tab PO Q6H PRN PRN Reason: Pain, severe (8-10) Stop: 05/28/18 18:34 Last Admin: 05/27/18 18:52 Dose: 1 tab Prednisone (Prednisone Tab) 30 mg PO DAILY [facility] Last Admin: 05/28/18 09:40 Dose: 30 mg Tamsulosin HCl (Flomax) 0.4 mg PO DAILY [facility] Last Admin: 05/28/18 09:38 Dose: 0.4 mg - Labs Labs: 05/28/18 06:10 05/28/18 06:10 PT 11.4 SECONDS (9.4-12.5) 05/27/18 07:30 INR 0.99 05/27/18 07:30 APTT 89.4 Seconds (25.1-36.5) H 05/27/18 07:30 - Constitutional Appears: Chronically Ill - Head Exam Head Exam: NORMAL INSPECTION - Respiratory Exam Respiratory Exam: Decreased Breath Sounds - Cardiovascular Exam Cardiovascular Exam: +S1, +S2 - GI/Abdominal Exam GI & Abdominal Exam: Soft. absent: Tenderness - Skin Additional comments: multiple areas of ecchymoses Assessment and Plan - Assessment and Plan (Free Text) Plan: Assessment S/P Systemic inflammatory response syndrome, consider due to ecchymoses due to coagulopathy dyslipidemia HTN BPH history of nephrolithiasis history of cataracts Plan will continue to monitor clinically off antibiotics since he is at risk for nosocomial infections
[2018-05-28 18:30] VITALS: TEMP 98.1
[2018-05-28 19:24] VITALS: BP 139/88; PULSE 107
--- NOTE | 2018-05-28 22:53 | CP.PCM.PN ---
Subjective - Date & Time of Evaluation Date of Evaluation: 05/28/18 Time of Evaluation: 08:00 - Subjective Subjective: Comfortable in bed. Sitting up today. Ecchymosis improved. Hb declined to 7.0 gm/dl today. C/O fatigue. Factor VIII level less than 1%. Inhibitor to factor VIII present. last dose of Factor VIII given on 05/26/2018, 2000 units. Objective - Vital Signs/Intake and Output Vital Signs (last 24 hours): Temp Pulse Resp BP Pulse Ox 98.1 F 107 H 20 139/88 98 05/28/18 19:23 05/28/18 19:23 05/28/18 19:23 05/28/18 19:23 05/28/18 08:26 Intake and Output: 05/28/18 05/29/18 18:59 06:59 Intake Total 2085 Output Total 1600 Balance 485 - Labs Labs: 05/28/18 06:10 05/28/18 06:10 PT 11.4 SECONDS (9.4-12.5) 05/27/18 07:30 INR 0.99 05/27/18 07:30 APTT 89.4 Seconds (25.1-36.5) H 05/27/18 07:30 - Constitutional Appears: Well, Non-toxic - Head Exam Head Exam: ATRAUMATIC, NORMAL INSPECTION, NORMOCEPHALIC - Eye Exam Eye Exam: Normal appearance Pupil Exam: NORMAL ACCOMODATION - Neck Exam Neck Exam: Normal Inspection - Respiratory Exam Respiratory Exam: Clear to Ausculation Bilateral, NORMAL BREATHING PATTERN - Cardiovascular Exam Cardiovascular Exam: REGULAR RHYTHM, +S1, +S2 - GI/Abdominal Exam GI & Abdominal Exam: Soft, Normal Bowel Sounds - Extremities Exam Extremities Exam: Normal Capillary Refill, Normal Inspection Additional comments: Ecchymosis improved on arms, chest, abdomen - Back Exam Back Exam: NORMAL INSPECTION - Neurological Exam Neurological Exam: Alert, Awake, Oriented x3 Assessment and Plan - Assessment and Plan (Free Text) Assessment: 1. Acquired hemophillia A : Factor VIII 2000units to be given today. Discuss with pharmacy. 2. Severe anemia : 2 units of PRBC ordered. 3. Discussed with daughter and patient at length about transfer to [facility] Hemophillia service for further management. Both agreed with Plan. Discussed with Dr. Dewitt. Discussed with DR. Moscoso , flight test mechanic at [facility] who accepts the patient. He will be admitted to hospitalist service.
== END 2018-05-28 20:42 | disposition short-term general hospital (02) | DRG 813 ==
LOC: ED 12:12 → ERH 16:15 → 2RSO 18:06 → 5RSO 05-22 05:52 → 3RNO 05-27 15:46
PROVIDERS: ADMIT Internal Medicine Nephrology; ATTEND Internal Medicine Nephrology
PROC: 30233N1 Transfusion of Nonautologous Red Blood Cells into Peripheral Vein, Percutaneous Approach (ICD-10-PCS; principal; 2018-05-19)
DX: D68.311 Acquired hemophilia (principal); R65.10 Systemic inflammatory response syndrome (SIRS) of non-infectious origin without acute organ dysfunction; M25.00 Hemarthrosis, unspecified joint; R17 Unspecified jaundice; D62 Acute posthemorrhagic anemia; D66 Hereditary factor VIII deficiency; D68.4 Acquired coagulation factor deficiency; D72.829 Elevated white blood cell count, unspecified; E78.00 Pure hypercholesterolemia, unspecified; E78.5 Hyperlipidemia, unspecified; H54.61 Unqualified visual loss, right eye, normal vision left eye; I10 Essential (primary) hypertension; N40.0 Benign prostatic hyperplasia without lower urinary tract symptoms; S30.1XXA Contusion of abdominal wall, initial encounter; Z79.899 Other long term (current) drug therapy; Z86.010 Personal history of colon polyps; Z87.442 Personal history of urinary calculi; Z95.5 Presence of coronary angioplasty implant and graft

== ENCOUNTER 2018-06-18 13:50 | Emergency (ER) | payer MEDICARE, OTHER ==
[2018-06-18 13:52] VITALS: BMI 24.4
--- NOTE | 2018-06-18 15:13 | ED PDOC ---
Arrival/HPI - General Chief Complaint: Upper Extremity Problem/Injury Time Seen by Provider: 06/18/18 14:54 Historian: Patient, Family (Daughter) - History of Present Illness Narrative History of Present Illness (Text): 06/18/18 15:06 A 77 year old male, whose past medical history includes hyperlipidemia, hypertension, BPH, acquired hemophilia, presents to the emergency department with his daughter for a complaint of increased ecchymosis to his upper body and sacral area over the past 2 days. The patient also reports a questionable traumatic event resulting in pain, swelling, and bruising of the left shoulder. The patient denies fevers, chills, headache, dizziness, sore throat, cough, chest pain, shortness of breath, dyspnea on exertion, abdominal pain, nausea, vomiting, diarrhea, hematochezia, hemoptysis, neck/back pain, urinary/bowel changes or any other complaint. PMD: Dr. Rider Manager Statistics: Dr. 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) Hx Cataracts: Yes (sx b/l) - Renal Hx Kidney Stones: Yes (lithotripsy) - Endocrine/Metabolic Hx Endocrine Disorders: No - Hematological/Oncological Hx Blood Disorders: Yes Other/Comment: macrocytosis without anemia - Integumentary Hx Dermatological Disorder: Yes (hx lipoma) Hx Psoriasis: Yes Other/Comment: Rash, multiple bruises arms legs abrasion right knee, large eccymosis from right abd around to right back, multiple bruises to back, chest, left shoulder abrasion - Musculoskeletal/Rheumatological Hx Musculoskeletal Disorders: Yes Hx Falls: Yes (fell today) Hx Unsteady Gait: Yes - Gastrointestinal Hx Gastrointestinal Disorders: Yes (colon polyps) - Genitourinary/Gynecological Hx Prostate Problems: Yes (bph, elevated psa) - Psychiatric Hx Psychophysiologic Disorder: No Hx Substance Use: No - Surgical History Hx Coronary Stent: Yes - Anesthesia Hx Anesthesia: Yes Hx Anesthesia Reactions: No Hx Malignant Hyperthermia: No Family/Social History - Physician Review Nursing Documentation Reviewed: Yes Family/Social History: No Known Family HX Smoking Status: Never Smoked Hx Alcohol Use: No Hx Substance Use: No Hx Substance Use Treatment: No Allergies/Home Meds Allergies/Adverse Reactions: Allergies No Known Allergies Allergy (Verified 05/18/18 12:51) Home Medications: Home Meds Medication Instructions Recorded Confirmed Lisinopril [Prinivil] 5 mg PO DAILY 11/25/17 06/18/18 Simvastatin [Zocor] 40 mg PO HS 11/25/17 06/18/18 Tamsulosin [Flomax] 0.4 mg PO DAILY 11/25/17 06/18/18 Finasteride [Proscar] 5 mg PO DAILY 05/18/18 06/18/18 Review of Systems - Physician Review All systems were reviewed & negative as marked: Yes - Review of Systems Constitutional: absent: Fevers Respiratory: absent: SOB, Cough Cardiovascular: absent: Chest Pain, PUGH Gastrointestinal: absent: Abdominal Pain, Stool Changes, Diarrhea, Nausea, Vomiting, Hematochezia Genitourinary Male: absent: Urinary Output Changes Musculoskeletal: Other (Left shoulder pain). absent: Back Pain, Neck Pain Neurological: absent: Headache, Dizziness Hemo/Lymphatic: Other (Ecchymosis to upper body and sacral area. ) Physical Exam Vital Signs Reviewed: Yes Vital Signs Temp Pulse Resp BP Pulse Ox 06/18/18 20:11 98.5 F 77 17 116/75 06/18/18 15:52 98.9 F 82 18 118/75 96 06/18/18 14:03 98.6 F 80 18 126/75 98 Temperature: Afebrile Blood Pressure: Normal Pulse: Regular Respiratory Rate: Normal Appearance: Positive for: Well-Appearing, Non-Toxic, Comfortable Pain Distress: None Mental Status: Positive for: Alert and Oriented X 3 - Systems Exam Head: Present: Atraumatic, Normocephalic Pupils: Present: PERRL Extroacular Muscles: Present: EOMI Conjunctiva: Present: Normal Mouth: Present: Moist Mucous Membranes Neck: Present: Normal Range of Motion Respiratory/Chest: Present: Clear to Auscultation, Good Air Exchange. No: Respiratory Distress, Accessory Muscle Use Cardiovascular: Present: Regular Rate and Rhythm, Normal S1, S2. No: Murmurs Abdomen: No: Tenderness, Distention, Peritoneal Signs Back: Present: Normal Inspection Upper Extremity: Present: Normal ROM (Limited ROM of the left shoulder secondary to pain. ), Tenderness (Moderate to severe tenderness to the entire left shoulder area. ), Other (Questionable effusion.). No: Cyanosis, Edema Lower Extremity: Present: Normal Inspection. No: Edema Neurological: Present: GCS=15, CN II-XII Intact, Speech Normal Skin: Present: Warm, Dry, Other (Extensive ecchymosis in his bilateral chest wall, abdomen, arms, legs, and sacrum). No: Rashes Psychiatric: Present: Alert, Oriented x 3, Normal Insight, Normal Concentration Medical Decision Making ED Course and Treatment: 06/18/18 15:18 Impression: A 77 year old male presents to the emergency department with daughter with complaint of increasing ecchymosis and left shoulder pain. Plan: -- Left Shoulder X- Ray -- Labs -- Reassess and disposition Prior Visits: Notes and results from previous visits were reviewed. Progress Notes: 06/18/18 15:24: Paged Dr. Lexx Moscoso ([place]) 06/18/18 15:30: Admission deferred to hospitalist. Discussed case with Dr. Marquez, director software quality assurance stone lathe operator. States that he will see the patient in consultation and will attempt to reach out to Dr. Moscoso. 06/18/18 18:54 case discussed in detail with hematology, dr. nunes. the initial decision was made to give pcc due to extensive bleeding and recom factor 7a which is not available at this hospital. in conclusion, after full CT report obtained, the decision was made to not give PCC and to give 3 units FFP for now with a low threshold to giving PCC. At this time will initiate transfer to [facility] where patient was cared for at [place] in [place]. Ultimately, the patient will require factor 7a. In addition, there is a concern for left shoulder hemarthrosis. 06/18/18 21:[address] johnson, at [facility] in in ([address] [place] [address] ) transfer accepted. accepting physician to [facility] floor. transfer center will call back with a bed for transfer (transfer center phone ) 06/18/18 22:24 - Lab Interpretations Lab Results: 06/18/18 15:30 06/18/18 15:30 Lab Results 06/18/18 15:30: Blood Type O POSITIVE, Antibody Screen Negative, BBK History Checked Patient has bt 06/18/18 15:30: Sodium 133, Potassium 4.4, Chloride 99, Carbon Dioxide 23, Anion Gap 15, BUN 18, Creatinine 0.7 L, Est GFR ( Amer) > 60, Est GFR ( Non-Af Amer) > 60, Random Glucose 185 H, Calcium 8.5, Total Bilirubin 1.7 H, AST 29, ALT 39, Alkaline Phosphatase 43, Total Protein 5.9, Albumin 3.4, Globulin 2.5, Albumin/Globulin Ratio 1.4, Lipase 118 06/18/18 15:30: PT 11.0, INR 0.97, APTT 75.4 H 06/18/18 15:30: WBC 16.0 H, RBC 2.82 L, Hgb 9.9 L D, Hct 30.5 L, MCV 108.2 H D, MCH 35.1 H, MCHC 32.5, RDW 17.9 H, Plt Count 209, MPV 9.9, Gran % 93.2 H, Lymph % (Auto) 3.7 L, [place] % (Auto) 3.0, Eos % (Auto) 0.0 L, Baso % (Auto) 0.1, Gran # 14.93 H, Lymph # (Auto) 0.6 L, [place] # (Auto) 0.5, Eos # (Auto) 0.0, Baso # ( Auto) 0.01, Neutrophils % (Manual) 89 H, Band Neutrophils % 3 H, Lymphocytes % ( Manual) 5 L, Monocytes % (Manual) 3, Platelet Evaluation Normal I have reviewed the lab results: Yes - RAD Interpretation Narrative RAD Interpretations (Text): PROCEDURE: Radiographs of the Left Shoulder Dictator : Eron Singh MD Report Date : 06/18/2018 15:52:47 IMPRESSION: Normal radiographs of the left shoulder. PROCEDURE: CT chest abdomen pelvis dated 06/18/2018 Creator : Tay Walter MD Report Date : 06/18/2018 18:54:17 IMPRESSION: Mild dependent/ passive atelectasis both posterior lower lung zones with questionable minimal of compressive type atelectasis left posterior sulcus. Trace left effusion not excluded. There are bibasilar scarring changes. Moderate size hiatal hernia. Air is seen throughout the esophagus. No evidence of intraperitoneal or retroperitoneal hemorrhage. Moderate fatty hepatic infiltration. Right renal cyst. Probable hyperdense left renal cyst which could be confirmed with nonemergent follow-up renal ultrasound. Mild urinary bladder wall thickening likely due to incomplete distention and muscular hypertrophy however correlation with urinalysis recommended confirm. Enlarged heterogeneous prostate gland likely due to BPH however correlation with PSA recommended. There is a small elliptical shaped somewhat low-attenuation structure within the left lateral chest wall in the left axillary region (likely representing some serratus anterior musculature ) extending inferiorly that measures approximately 6.0 x 2.9 x 1.0 cm and best seen on sagittal sequence series 602 image number [id number] and axial series 3, image number [id number]). This focus exhibits Hounsfield units in the upper 30s likely representing chronic hematoma. In addition, the musculature about left shoulder appears slightly and infiltrated possibly representing intramuscular hematoma. Follow-up MRI of the left shoulder and humerus may be of some benefit for further evaluation. . Suspect more discrete chronic hematoma within the left anterolateral subcutaneous tissues adjacent to the medial aspect of the humeral head and proximal humerus. These findings discussed with Dr. Montenegro at approximately 6:40 p.m. with written down and read back verification. Radiology Orders: 06/18/18 15:06 SHOULDER LEFT [RAD] Stat 06/18/18 15:24 CHEST,ABD,PEL W/IV CONT ONLY [CT] Stat - Scribe Statement The provider has reviewed the documentation as recorded by the Radha Leone Provider Scribe Attestation: All medical record entries made by the Scribe were at my direction and personally dictated by me. I have reviewed the chart and agree that the record accurately reflects my personal performance of the history, physical exam, medical decision making, and the department course for this patient. I have also personally directed, reviewed, and agree with the discharge instructions and disposition. Disposition/Present on Arrival - Present on Arrival Any Indicators Present on Arrival: No History of DVT/PE: No History of Uncontrolled Diabetes: No Urinary Catheter: No History of Decub. Ulcer: No History Surgical Site Infection Following: None - Disposition Have Diagnosis and Disposition been Completed?: Yes Diagnosis: Hemophilia, Nontraumatic hematoma of soft tissue, Hemarthrosis, shoulder Disposition Time: 23:20 Patient Plan: Transfer To ([place] in [place]) Condition: STABLE Referrals: Tye Rider MD [Primary Care Provider] - Follow up with primary Forms: [employer] (Samoan)
--- NOTE | 2018-06-18 15:54 | RAD ---
Date of service: 06/18/2018 PROCEDURE: Radiographs of the Left Shoulder HISTORY: pain COMPARISON: No prior. FINDINGS: BONES: Normal. No fracture. JOINTS: Normal. Glenohumeral and acromioclavicular joints preserved. No osteoarthritis. SOFT TISSUES: Normal. OTHER FINDINGS: None. IMPRESSION: Normal radiographs of the left shoulder.
[2018-06-18 16:47] LABS: BASO # 0.01 K/mm3 (0.0-2.0); BASO % 0.1 % (0.0-3.0); GRAN # 14.93 (1.4-6.5); GRAN % 93.2 % (50.0-68.0); HEMOGLOBIN 9.9 g/dL (14.0-18.0); LYMPH # 0.6 (1.2-3.4); LYMPH % 3.7 % (22.0-35.0); MEAN CELL VOLUME 108.2 fl (80.0-105.0); MEAN CORPUSCULAR HEMOGLOBIN 35.1 pg (25.0-35.0); MEAN CORPUSCULAR HGB CONC 32.5 g/dl (31.0-37.0); MEAN PLATELET VOLUME 9.9 fl (7.0-11.0); MONO # 0.5 (0.1-0.6); PLATELET COUNT 209 10^3/uL (120.0-450.0); RBC 2.82 10^6/uL (3.5-6.1); RED CELL DISTRIBUTION WIDTH 17.9 % (11.5-14.5)
[2018-06-18 16:50] LABS: INR 0.97; PARTIAL THROMBOPLASTIN TIME 75.4 Seconds (25.1-36.5)
[2018-06-18 16:53] LABS: ALB/GLOB RATIO 1.4 (1.1-1.8); ALBUMIN 3.4 g/dL (3.0-4.8); ALT/SGPT 39 U/L (7-56); AST/SGOT 29 U/L (17-59); BLOOD UREA NITROGEN 18 mg/dL (7-21); CALCIUM 8.5 mg/dL (8.4-10.5); GFR NON-AFRICAN AMERICAN > 60; LIPASE 118 U/L (23-300)
--- NOTE | 2018-06-18 17:46 | CP.PCM.CON ---
History of Present Illness - History of Present Illness History of Present Illness: 77 year old male with PMHx of hyperlipidemia, hypertension, BPH, and recently diagnosed acquired hemophilia who presents to the emergency department with a complaint of increased ecchymosis. Patient had noticed that his upper torso, extremities, and sacral area has had increased echyosis x 2 days. Patient states that he had a traumatic event resulting in pain, swelling, and bruising of the left shoulder. The patient denies fevers, chills, headache, dizziness, sore throat, cough, chest pain, shortness of breath, dyspnea on exertion, abdominal pain, nausea, vomiting, diarrhea, hematochezia, hemoptysis, neck/back pain, urinary/bowel changes or any other complaint. Patient was recently admitted to [facility] and transferred out to [facility] under the care of Dr. Moscoso who is a hemophilia expert. Patient states that he has been getting weekly infusions at [facility], unclear whether it's immunosuppresive therapy v Factor VIII infusion. Review of Systems - Review of Systems All systems: reviewed and no additional remarkable complaints except Review of Systems: complaining of left arm pain. - Constitutional Constitutional: absent: As Per HPI, Anorexia, Chills, Daytime Sleepiness, Excessive Sweating, Fatigue, Fever, Frequent Falls, Headache, Increased Appetite , Lethargy, Malaise, Night Sweats, Snoring, Sleep Apnea, Weight Gain, Weight Loss, Weakness, Other - EENT Eyes: Blind Spots. absent: Irritation, Loss of Peripheral Vision, Requires Corrective Lenses, Loss of Vision Ears: As Per HPI Nose/Mouth/Throat: As Per HPI. absent: Epistaxis, Nasal Congestion, Nasal Discharge, Sinus Pressure, Bleeding Gums, Change in Voice - Cardiovascular Cardiovascular: absent: Chest Pain, Chest Pain with Activity, Claudication, Dyspnea on Exertion, Edema, Pain Radiating to Arm/Neck/Jaw, Leg Edema - Respiratory Respiratory: absent: Cough, Dyspnea, Hemoptysis, Dyspnea on Exertion, Snoring, Pain on Inspiration - Gastrointestinal Gastrointestinal: Abdominal Pain. absent: Bloating, Change in Bowel Habits, Change in Stool Character, Coffee Ground Emesis, Diarrhea, Heartburn - Genitourinary Genitourinary: absent: Hematuria, Pyuria, Nocturia - Reproductive: Male Reproductive:Male: As Per HPI - Musculoskeletal Musculoskeletal: Joint Swelling, Myalgias. absent: Neck Pain Additional comments: limited ROM of the left upper extremity, due to swelling and pain from potential hemarthrosis - Integumentary Integumentary: New Lesions, Unusual Bruising Additional comments: multiple echymotic lesions noted all over the torso and upper extremities. - Neurological Neurological: absent: Abnormal Gait, Abnormal Hearing, Abnormal Movements, Burning Sensations, Disequilibrium, Dizziness, Numbness, Headaches, Lack of Coordination, Loss of Vision - Psychiatric Psychiatric: As Per HPI - Endocrine Endocrine: As Per HPI - Hematologic/Lymphatic Hematologic: Easy Bleeding, Easy Bruising Past Patient History - Infectious Disease Hx of Infectious Diseases: None - Past Medical History & Family History Pertinent Family History: HTN, HLD, Blindness, acquired hemophilia - Past Social History Smoking Status: Never Smoked Chewing Tobacco Use: No Cigar Use: No Alcohol: Social - CARDIAC Hx Hypercholesterolemia: Yes Hx Hypertension: Yes - PULMONARY Hx Respiratory Disorders: No - NEUROLOGICAL Hx Neurological Disorder: No - HEENT 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) Hx Cataracts: Yes (sx b/l) - RENAL Hx Kidney Stones: Yes (lithotripsy) - ENDOCRINE/METABOLIC Hx Endocrine Disorders: No - HEMATOLOGICAL/ONCOLOGICAL Hx Blood Disorders: Yes Other/Comment: macrocytosis without anemia - INTEGUMENTARY Hx Dermatological Problems: Yes (hx lipoma) Hx Psoriasis: Yes Other/Comment: Rash, multiple bruises arms legs abrasion right knee, large eccymosis from right abd around to right back, multiple bruises to back, chest, left shoulder abrasion - MUSCULOSKELETAL/RHEUMATOLOGICAL Hx Musculoskeletal Disorders: Yes Hx Falls: Yes (fell today) Hx Unsteady Gait: Yes - GASTROINTESTINAL Hx Gastrointestinal Disorders: Yes (colon polyps) - GENITOURINARY/GYNECOLOGICAL Hx Prostate Problems: Yes (bph, elevated psa) - PSYCHIATRIC Hx Psychophysiologic Disorder: No Hx Substance Use: No - SURGICAL HISTORY Hx Coronary Stent: Yes - ANESTHESIA Hx Anesthesia: Yes Hx Anesthesia Reactions: No Hx Malignant Hyperthermia: No Meds Allergies/Adverse Reactions: Allergies Allergy/AdvReac Type Severity Reaction Status Date / Time No Known Allergies Allergy Verified 05/18/18 12:51 Physical Exam - Constitutional Appears: Well, Non-toxic, No Acute Distress - Head Exam Head Exam: ATRAUMATIC, NORMOCEPHALIC - Eye Exam Eye Exam: EOMI, Normal appearance - ENT Exam ENT Exam: Mucous Membranes Moist, Normal Oropharynx Additional comments: no palatine echymotic lesions - Neck Exam Neck exam: Positive for: Full Rom Additional comments: ecchymosis over the anterior neck - Respiratory Exam Respiratory Exam: Clear to Auscultation Bilateral, NORMAL BREATHING PATTERN. absent: Chest Wall Tenderness, Decreased Breath Sounds - Cardiovascular Exam Cardiovascular Exam: REGULAR RHYTHM, +S1, +S2 - GI/Abdominal Exam GI & Abdominal Exam: Normal Bowel Sounds - Extremities Exam Additional comments: left upper extremity limited ROM, ecchymotic, painful on palpation right elbow echymotic lesion noted, ROM preserved - Neurological Exam Neurological exam: Alert, Normal Gait, Oriented x3 - Psychiatric Exam Psychiatric exam: Normal Affect, Normal Mood - Skin Additional comments: abdominal bruising noted, left upper extremity and right elbow bruising noted Results - Vital Signs Recent Vital Signs: Last Vital Signs Temp 98.6 F 06/18/18 14:03 Pulse 80 06/18/18 14:03 Resp 18 06/18/18 14:03 BP 126/75 06/18/18 14:03 Pulse Ox 98 06/18/18 14:03 - Labs Result Diagrams: 06/18/18 15:30 06/18/18 15:30 Labs: Laboratory Results - last 24 hr 06/18/18 06/18/18 06/18/18 15:30 15:30 15:30 WBC 16.0 H RBC 2.82 L Hgb 9.9 L D Hct 30.5 L MCV 108.2 H D MCH 35.1 H MCHC 32.5 RDW 17.9 H Plt Count 209 MPV 9.9 Gran % 93.2 H Lymph % (Auto) 3.7 L [place] % (Auto) 3.0 Eos % (Auto) 0.0 L Baso % (Auto) 0.1 Gran # 14.93 H Lymph # (Auto) 0.6 L [place] # (Auto) 0.5 Eos # (Auto) 0.0 Baso # (Auto) 0.01 PT 11.0 INR 0.97 APTT 75.4 H Sodium 133 Potassium 4.4 Chloride 99 Carbon Dioxide 23 Anion Gap 15 BUN 18 Creatinine 0.7 L Est GFR ( Amer) > 60 Est GFR (Non-Af Amer) > 60 Random Glucose 185 H Calcium 8.5 Total Bilirubin 1.7 H AST 29 ALT 39 Alkaline Phosphatase 43 Total Protein 5.9 Albumin 3.4 Globulin 2.5 Albumin/Globulin Ratio 1.4 Lipase 118 Blood Type Antibody Screen BBK History Checked 06/18/18 15:30 WBC RBC Hgb Hct MCV MCH MCHC RDW Plt Count MPV Gran % Lymph % (Auto) [place] % (Auto) Eos % (Auto) Baso % (Auto) Gran # Lymph # (Auto) [place] # (Auto) Eos # (Auto) Baso # (Auto) PT INR APTT Sodium Potassium Chloride Carbon Dioxide Anion Gap BUN Creatinine Est GFR ( Amer) Est GFR (Non-Af Amer) Random Glucose Calcium Total Bilirubin AST ALT Alkaline Phosphatase Total Protein Albumin Globulin Albumin/Globulin Ratio Lipase Blood Type O POSITIVE Antibody Screen Negative BBK History Checked Patient has bt Assessment & Plan - Assessment and Plan (Free Text) Assessment: 77 year old male patient with an acquired hemophilia noted to have progressively worsening ecchymosis and possible hemarthrosis of the left shoulder. Patient will require control of his blood diathesis with PCC and likely transfer to his primary marketing development representative Dr. Moscoso at [facility]. Plan: Please give PCC dose of 1750mcg once initial dose Monitor H/H If Hb<8 transfuse Low threshold for further blood products, such as FFPs if the patient is bleeding Avoid subcutaneous injection Thank you for allowing me to partake in your patients care. Sincerely, Tono Yeh
[2018-06-18 18:02] LABS: BAND 3 % (0-2); LYMPHOCYTE 5 % (22.0-35.0); NEUTROPHIL 89 % (50.0-70.0)
[2018-06-18 18:03] LABS: MONOCYTE 3 % (1.0-6.0); PLATELET ESTIMATE NORMAL (NORMAL)
[2018-06-18] MEDS ORDERED: Hum Prothrombin CPLX(PCC)4FACT 1 Unit Inj IV STA (18:27)
--- NOTE | 2018-06-18 18:55 | CT ---
Date of service: 06/18/2018 PROCEDURE: CT chest abdomen pelvis dated 06/18/2018 HISTORY: Bruising in a patient with a history of hemophilia COMPARISON: Comparison made with prior CT scan of the abdomen and pelvis dated 05/18/2018. TECHNIQUE: Contiguous helical/ transaxial sections of the chest and pelvis performed following intravenous injection of approximately 150 cc Omnipaque 350 contrast material. Additional 2D sagittal and coronal reformats generated. Radiation dose: Total exam DLP = 674.73 mGy-cm. This CT exam was performed using one or more of the following dose reduction techniques: Automated exposure control, adjustment of the mA and/or kV according to patient size, and/or use of iterative reconstruction technique. FINDINGS: CT CHEST WITH CONTRAST: LUNGS: There is also mild passive/ dependent type atelectasis seen throughout the lower lobes and to a lesser degree posterior margins of the upper lobes. Minimal compressive atelectasis left posterior sulcus. No significant consolidation changes are identified. Minor irregular linear chronic atelectasis and or scarring left lung base and lingular regions. . MEDIASTINUM: Heart size is within range of normal. No significant pericardial effusion. Ascending thoracic aorta measures approximately 3.5 cm and descending thoracic aorta measures approximately 2.5 cm. Pulmonary trunk measures approximately 2.4 cm. Central airways midline and patent. No large central endoluminal lesions. Air is seen throughout most of the esophagus. There is a small to medium size hiatal hernia. LYMPH NODES: Few small nonspecific mediastinal lymph nodes are present. No significant hilar adenopathy. PLEURA: Questionable trace left-sided effusion. BONES: Mild to moderate multilevel degenerative spondylosis. Chronic appearing anterior wedge deformity of the T11 segment. . Probable hemangioma within C7 and possibly the C6 segments. OTHER FINDINGS: There is a small elliptical shaped somewhat low-attenuation structure within the left lateral chest wall in the left axillary region (likely representing some serratus anterior musculature ) extending inferiorly that measures approximately 6.0 x 2.9 x 1.0 cm and best seen on sagittal sequence series 602 image number [id number] and axial series 3, image number [id number]). This focus exhibits Hounsfield units in the upper 30s likely representing chronic hematoma. In addition, the musculature about left shoulder appears slightly and infiltrated possibly representing intramuscular hematoma. Suspect more discrete chronic hematoma within the left anterolateral subcutaneous tissues adjacent to the medial aspect of the humeral head and proximal humerus Follow-up MRI of the left shoulder and humerus may be of some benefit for further evaluation. CT ABDOMEN AND PELVIS: LIVER: Liver exhibits normal size measuring approximately 11 cm in CC dimension. Moderate fatty hepatic infiltration. No obvious hepatic mass collection or calcification. Portal and splenic veins are opacified. GALLBLADDER AND BILE DUCTS: Unremarkable. PANCREAS: Unremarkable. No gross lesion or ductal dilatation. SPLEEN: Spleen exhibits normal size and attenuation pattern without mass collection or calcification. ADRENALS: No adrenal lesions. KIDNEYS AND URETERS: Kidneys demonstrate symmetric nephrograms. No evidence of nephrolithiasis or hydronephrosis. . There is an approximately 2.5 x 2.3 cm partially exophytic cyst anteromedial cortex lower pole right kidney. . Small elliptical shaped approximately 13 mm elliptical shaped partially exophytic low-attenuation focus seen along the posterior cortex mid to lower pole left kidney that may represent a hyperdense cyst with Hounsfield units in the upper teens. Renal ultrasound could confirm. VASCULATURE: No evidence of abdominal aortic or iliac artery aneurysms. BOWEL: Evaluation of the bowel is somewhat limited due to the lack of oral contrast material. Stomach is distended with food debris/liquid and air. Visualized loops of small bowel exhibit normal contour and caliber. No evidence acute mechanical small bowel obstruction. Stool and air seen throughout the cecum at ascending and transverse colon. With incomplete distention of the distal descending and sigmoid colon. No definitive mural wall thickening. APPENDIX: Normal appendix best seen on coronal sequence image number [id number]. No periappendiceal inflammatory changes. PERITONEUM: Unremarkable. No free fluid. No free air. Small fat containing umbilical hernia. Small bilateral fat containing inguinal hernias. Hernias. LYMPH NODES: Unremarkable. No enlarged lymph nodes. No significant retroperitoneal adenopathy or evidence of retroperitoneal hemorrhage. BLADDER: Urinary bladder is incompletely distended which in part accounts for thick-walled appearance. Muscular hypertrophy presumably contributes. Correlation with urinalysis recommended to exclude a cystitis - UTI. REPRODUCTIVE: Prostate gland measures approximately 4.4 cm in transverse dimension. Prostate gland is heterogeneous. Findings likely due to of BPH however correlation with PSA recommended. BONES: No acute fracture. OTHER FINDINGS: None. IMPRESSION: Mild dependent/ passive atelectasis both posterior lower lung zones with questionable minimal of compressive type atelectasis left posterior sulcus. Trace left effusion not excluded. There are bibasilar scarring changes. Moderate size hiatal hernia. Air is seen throughout the esophagus. No evidence of intraperitoneal or retroperitoneal hemorrhage. Moderate fatty hepatic infiltration. Right renal cyst. Probable hyperdense left renal cyst which could be confirmed with nonemergent follow-up renal ultrasound. Mild urinary bladder wall thickening likely due to incomplete distention and muscular hypertrophy however correlation with urinalysis recommended confirm. Enlarged heterogeneous prostate gland likely due to BPH however correlation with PSA recommended. There is a small elliptical shaped somewhat low-attenuation structure within the left lateral chest wall in the left axillary region (likely representing some serratus anterior musculature ) extending inferiorly that measures approximately 6.0 x 2.9 x 1.0 cm and best seen on sagittal sequence series 602 image number [id number] and axial series 3, image number [id number]). This focus exhibits Hounsfield units in the upper 30s likely representing chronic hematoma. In addition, the musculature about left shoulder appears slightly and infiltrated possibly representing intramuscular hematoma. Follow-up MRI of the left shoulder and humerus may be of some benefit for further evaluation. . Suspect more discrete chronic hematoma within the left anterolateral subcutaneous tissues adjacent to the medial aspect of the humeral head and proximal humerus. These findings discussed with Dr. Montenegro at approximately 6:40 p.m. with written down and read back verification.
--- NOTE | 2018-06-19 07:02 | ED PDOC ---
Physical Exam Vital Signs Temp Pulse Resp BP Pulse Ox 06/19/18 06:18 97.3 F L 85 18 132/70 98 06/19/18 04:23 73 16 131/71 100 06/19/18 00:15 98.4 F 80 17 132/72 100 06/18/18 23:15 98.4 F 90 17 136/83 100 06/18/18 21:46 98.2 F 83 16 124/65 100 06/18/18 20:57 98.4 F 72 17 126/78 99 06/18/18 20:14 98.5 F 77 17 116/75 100 06/18/18 20:11 98.5 F 77 17 116/75 06/18/18 15:52 98.9 F 82 18 118/75 96 06/18/18 14:03 98.6 F 80 18 126/75 98 Medical Decision Making ED Course and Treatment: 06/19/18 07:01 Patient endorsed to me by Dr. Villalobos. Patient is a 77 year old male presenting to the Emergency department complaining of pain. 06/20/18 1900 no pain on exam. Pt to be picked up by Claire, signed out to [facility] physician - Lab Interpretations Lab Results: 06/18/18 15:30 06/18/18 15:30 Lab Results 06/18/18 15:30: Blood Type O POSITIVE, Antibody Screen Negative, BBK History Checked Patient has bt 06/18/18 15:30: Sodium 133, Potassium 4.4, Chloride 99, Carbon Dioxide 23, Anion Gap 15, BUN 18, Creatinine 0.7 L, Est GFR ( Amer) > 60, Est GFR ( Non-Af Amer) > 60, Random Glucose 185 H, Calcium 8.5, Total Bilirubin 1.7 H, AST 29, ALT 39, Alkaline Phosphatase 43, Total Protein 5.9, Albumin 3.4, Globulin 2.5, Albumin/Globulin Ratio 1.4, Lipase 118 06/18/18 15:30: PT 11.0, INR 0.97, APTT 75.4 H 06/18/18 15:30: WBC 16.0 H, RBC 2.82 L, Hgb 9.9 L D, Hct 30.5 L, MCV 108.2 H D, MCH 35.1 H, MCHC 32.5, RDW 17.9 H, Plt Count 209, MPV 9.9, Gran % 93.2 H, Lymph % (Auto) 3.7 L, [place] % (Auto) 3.0, Eos % (Auto) 0.0 L, Baso % (Auto) 0.1, Gran # 14.93 H, Lymph # (Auto) 0.6 L, [place] # (Auto) 0.5, Eos # (Auto) 0.0, Baso # ( Auto) 0.01, Neutrophils % (Manual) 89 H, Band Neutrophils % 3 H, Lymphocytes % ( Manual) 5 L, Monocytes % (Manual) 3, Platelet Evaluation Normal - RAD Interpretation Radiology Orders: 06/18/18 15:06 SHOULDER LEFT [RAD] Stat 06/18/18 15:24 CHEST,ABD,PEL W/IV CONT ONLY [CT] Stat - Scribe Statement The provider has reviewed the documentation as recorded by the Shanteibvenecia Freire All medical record entries made by the Scribe were at my direction and personally dictated by me. I have reviewed the chart and agree that the record accurately reflects my personal performance of the history, physical exam, medical decision making, and the department course for this patient. I have also personally directed, reviewed, and agree with the discharge instructions and disposition. Disposition/Present on Arrival - Present on Arrival Any Indicators Present on Arrival: No History of DVT/PE: No History of Uncontrolled Diabetes: No Urinary Catheter: No History of Decub. Ulcer: No History Surgical Site Infection Following: None - Disposition Have Diagnosis and Disposition been Completed?: Yes Diagnosis: Hemophilia, Nontraumatic hematoma of soft tissue, Hemarthrosis, shoulder Disposition: Trans to Other Acute Care Hosp Disposition Time: 19:00 Condition: STABLE Referrals: Tye Rider MD [Primary Care Provider] - Follow up with primary Forms: [employer] (Vietnamese)
[2018-06-19 15:18] VITALS: TEMP 98.2
[2018-06-19 18:54] VITALS: RESP 18
[2018-06-20 00:40] VITALS: BP 135/72; PULSE 88; O2SAT 100
== END 2018-06-19 23:45 | disposition short-term general hospital (02) ==
LOC: ED 13:50
DX: D68.311 Acquired hemophilia (principal); M25.012 Hemarthrosis, left shoulder; M79.81 Nontraumatic hematoma of soft tissue; I10 Essential (primary) hypertension; E78.5 Hyperlipidemia, unspecified; E78.00 Pure hypercholesterolemia, unspecified; N40.0 Benign prostatic hyperplasia without lower urinary tract symptoms
CPT/HCPCS: 36430; 71260; 73030; 74177; 80053; 82948; 83690; 85025; 85610; 85730; 86850; 86900; 99285; P9017; Q9967

== ENCOUNTER 2018-07-17 14:38 | Inpatient (IN) | payer MEDICARE, OTHER ==
[2018-07-17 14:57] VITALS: BMI 26.5
--- NOTE | 2018-07-17 15:23 | ED PDOC ---
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 Per daughter, patient had an episode of black, tarry stool as well. Patient currently reports a sharp, mild upper abdominal pain, which has been present constantly. Patient states the pain is nonradiating. Otherwise, he offers no additional medical complaints. Patient is being followed up by Dr. David Moscoso at [facility] due to his hemophilia. 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) Hx Cataracts: Yes (sx b/l) - Renal Hx Kidney Stones: Yes (lithotripsy) - Endocrine/Metabolic Hx Endocrine Disorders: No - Hematological/Oncological Hx Blood Disorders: Yes Other/Comment: macrocytosis without anemia - Integumentary Hx Dermatological Disorder: Yes (hx lipoma) Hx Psoriasis: Yes - Musculoskeletal/Rheumatological Hx Musculoskeletal Disorders: Yes Hx Falls: Yes (fell today) Hx Unsteady Gait: Yes - Gastrointestinal Hx Gastrointestinal Disorders: Yes (colon polyps) - Genitourinary/Gynecological Hx Prostate Problems: Yes (bph, elevated psa) - Psychiatric Hx Psychophysiologic Disorder: No Hx Substance Use: No - Surgical History Hx Coronary Stent: Yes - Anesthesia Hx Anesthesia: Yes Hx Anesthesia Reactions: No Hx Malignant Hyperthermia: No Family/Social History - Physician Review Nursing Documentation Reviewed: Yes Family/Social History: No Known Family HX Smoking Status: Never Smoked Hx Alcohol Use: No Hx Substance Use: No Hx Substance Use Treatment: No Allergies/Home Meds Allergies/Adverse Reactions: Allergies No Known Allergies Allergy (Verified 05/18/18 12:51) Home Medications: Home Meds Medication Instructions Recorded Confirmed RX: Lisinopril [Prinivil] 5 mg PO DAILY 11/25/17 06/18/18 RX: Simvastatin [Zocor] 40 mg PO HS 11/25/17 06/18/18 RX: Tamsulosin [Flomax] 0.4 mg PO DAILY 11/25/17 06/18/18 RX: Finasteride [Proscar] 5 mg PO DAILY 05/18/18 06/18/18 Review of Systems - Physician Review All systems were reviewed & negative as marked: Yes - Review of Systems Respiratory: absent: SOB Cardiovascular: absent: Chest Pain Physical Exam - Physical Exam Narrative Physical Exam (Text): Constitutional: No acute distress. Head: Normocephalic. Atraumatic. Eyes: No scleral icterus ENT: Moist mucous membranes. Neck: Supple. Cardiovascular: Tachycardic. Chest: No tenderness. Respiratory: Clear to auscultation bilaterally. GI: Soft. Diffuse tenderness to upper abdomen. No guarding. Rectal: Black stool, guiac positive. No visible hemorrhoids. No active bleeding. Back: No CVA tenderness. Musculoskeletal: No tenderness or swelling of extremities. Skin: No rash. Neurologic: Alert, no focal deficit. Vital Signs Temp Pulse Resp BP Pulse Ox 07/17/18 19:36 113 H 24 88/48 L 99 07/17/18 18:30 103 H 22 99/61 L 100 07/17/18 16:17 101 H 18 102/48 L 99 07/17/18 14:38 98.6 F 118 H 20 94/52 L 99 Medical Decision Making ED Course and Treatment: Impression: 77yo male with upper abdominal pain, r/o upper GI bleed Plan: -- Labs -- EKG -- Pantoprazole 80mg IVP -- Reassess and disposition Prior Visits: Notes and results from previous visits were reviewed. Progress Notes: 07/17/18 16:11 Chest X-ray IMPRESSION: No focal consolidation, significant pleural effusion, or definite pneumothorax identified. Dr. Dewitt accepts patient to his service, recommends Dr. Posey for GI. - Lab Interpretations Lab Results: 07/17/18 15:20 07/17/18 15:20 Lab Results 07/17/18 15:20: PT 11.5, INR 1.01, APTT 44.7 H 07/17/18 15:20: WBC 11.8 H D, RBC 2.73 L, Hgb 10.0 L, Hct 29.1 L, MCV 106.6 H, MCH 36.6 H, MCHC 34.4, RDW 14.6 H, Plt Count 181, MPV 10.1, Gran % 90.5 H, Lymph % (Auto) 3.9 L, [place] % (Auto) 5.4, Eos % (Auto) 0.0 L, Baso % (Auto) 0.2, Gran # 10.68 H, Lymph # (Auto) 0.5 L, [place] # (Auto) 0.6, Eos # (Auto) 0.0, Baso # (Auto) 0.02, Neutrophils % (Manual) 88 H, Lymphocytes % (Manual) 2 L, Monocytes % (Manual) 7 H, Metamyelocytes % 2, Myelocytes % 1, Platelet Evaluation Normal 07/17/18 15:20: Blood Type O POSITIVE, Antibody Screen Negative, BBK History Checked Patient has bt 07/17/18 15:20: Sodium 135, Potassium 4.5, Chloride 106, Carbon Dioxide 24, Anion Gap 10, BUN 48 H, Creatinine 0.9, Est GFR ( Amer) > 60, Est GFR (Non-Af Amer) > 60, Random Glucose 155 H, Calcium 8.9, Total Bilirubin 0.3, AST 18, ALT 40, Alkaline Phosphatase 48, Troponin I < 0.01, Total Protein 5.1 L, Albumin 3.0, Globulin 2.1, Albumin/Globulin Ratio 1.4, Lipase 197 - RAD Interpretation Radiology Orders: 07/17/18 15:16 CHEST PORTABLE [RAD] Stat - Medication Orders Current Medication Orders: Pantoprazole Sodium (Protonix 40mg Ivpb) 40 mg in 100 mls @ 20 mls/hr IVPB .Q5H VICKY Last Admin: 07/17/18 16:10 Dose: 20 mls/hr eMAR Start Stop Document 07/17/18 16:10 SRE (Rec: 07/17/18 16:11 SRE [id number]) Intravenous Solution Start Date 07/17/18 Start Time 16:11 End Date 07/17/18 End time 23:00 Total Infusion Time 409 Discontinued Medications Pantoprazole Sodium (Protonix Inj) 80 mg IVP STAT STA Stop: 07/17/18 15:17 Last Admin: 07/17/18 16:10 Dose: 80 mg IVP Administration Document 07/17/18 16:10 SRE (Rec: 07/17/18 16:10 [facility] [id number]) Charges for Administration # of IVP Administrations 1 Disposition/Present on Arrival - Present on Arrival Any Indicators Present on Arrival: No History of DVT/PE: No History of Uncontrolled Diabetes: No Urinary Catheter: No History of Decub. Ulcer: No History Surgical Site Infection Following: None - Disposition Have Diagnosis and Disposition been Completed?: Yes Diagnosis: GI bleed Disposition: HOSPITALIZED Disposition Time: 16:11 Patient Plan: Admission Condition: GUARDED
[2018-07-17 15:45] LABS: BASO # 0.02 K/mm3 (0.0-2.0); BASO % 0.2 % (0.0-3.0); GRAN # 10.68 (1.4-6.5); GRAN % 90.5 % (50.0-68.0); LYMPH # 0.5 (1.2-3.4); LYMPH % 3.9 % (22.0-35.0); MEAN CELL VOLUME 106.6 fl (80.0-105.0); MEAN CORPUSCULAR HEMOGLOBIN 36.6 pg (25.0-35.0); MEAN CORPUSCULAR HGB CONC 34.4 g/dl (31.0-37.0); MEAN PLATELET VOLUME 10.1 fl (7.0-11.0); MONO # 0.6 (0.1-0.6); MONO % 5.4 % (1.0-6.0); PLATELET COUNT 181 10^3/uL (120.0-450.0); RBC 2.73 10^6/uL (3.5-6.1); RED CELL DISTRIBUTION WIDTH 14.6 % (11.5-14.5); WHITE BLOOD COUNT 11.8 10^3/ul (4.5-11.0)
--- NOTE | 2018-07-17 15:54 | RAD ---
HISTORY: gi bleed COMPARISON: Chest x-ray performed 05/23/18 TECHNIQUE: Chest, one view. FINDINGS: Examination limited by habitus and hypoinflation. LUNGS: No focal consolidation. Please note that chest x-ray has limited sensitivity for the detection of pulmonary masses. PLEURA: No significant pleural effusion identified. No definite pneumothorax . CARDIOVASCULAR: Heart size appears within normal limits. OSSEOUS STRUCTURES: Degenerative changes of the spine. VISUALIZED UPPER ABDOMEN: Unremarkable. OTHER FINDINGS: None. IMPRESSION: No focal consolidation, significant pleural effusion, or definite pneumothorax identified.
[2018-07-17 15:59] LABS: INR 1.01; PARTIAL THROMBOPLASTIN TIME 44.7 Seconds (25.1-36.5); PROTHROMBIN TIME 11.5 SECONDS (9.4-12.5)
[2018-07-17 16:08] LABS: TROPONIN I < 0.01 ng/mL
[2018-07-17] MEDS: Pantoprazole 40mg/100mL NS 40 MG/100 ML BAG IVPB SCH ×2 (16:10→21:15)
[2018-07-17 16:12] LABS: ALB/GLOB RATIO 1.4 (1.1-1.8); ALT/SGPT 40 U/L (7-56); AST/SGOT 18 U/L (17-59); BLOOD UREA NITROGEN 48 mg/dL (7-21); CALCIUM 8.9 mg/dL (8.4-10.5); GFR NON-AFRICAN AMERICAN > 60; LIPASE 197 U/L (23-300)
[2018-07-17 16:24] LABS: LYMPHOCYTE 2 % (22.0-35.0); METAMYELOCYTE 2 %; MONOCYTE 7 % (1.0-6.0); MYELOCYTE 1 %; NEUTROPHIL 88 % (50.0-70.0)
[2018-07-17 16:25] LABS: PLATELET ESTIMATE NORMAL (NORMAL)
[2018-07-17] MEDS ORDERED: Influenza Vaccine 60 mcg/0.5 mL SYR (4YR UP) IM ONE (22:24)
[2018-07-17] MEDS ORDERED: Pneumococcal 23-Valent Vaccine IM ONE (22:24)
[2018-07-18] MEDS: Pantoprazole 40mg/100mL NS 40 MG/100 ML BAG IVPB SCH ×4 (02:20→21:32)
[2018-07-18 06:26] LABS: BASO # 0.02 K/mm3 (0.0-2.0); BASO % 0.2 % (0.0-3.0); EOS # 0.1 (0.0-0.7); EOS % 0.6 % (1.5-5.0); GRAN # 8.28 (1.4-6.5); GRAN % 72.8 % (50.0-68.0); HEMOGLOBIN 8.8 g/dL (14.0-18.0); INR 1.03; LYMPH # 1.9 (1.2-3.4); MEAN CELL VOLUME 107.4 fl (80.0-105.0); MEAN CORPUSCULAR HEMOGLOBIN 36.4 pg (25.0-35.0); MEAN CORPUSCULAR HGB CONC 33.8 g/dl (31.0-37.0); MEAN PLATELET VOLUME 9.9 fl (7.0-11.0); MONO # 1.1 (0.1-0.6); MONO % 9.4 % (1.0-6.0); PARTIAL THROMBOPLASTIN TIME 46.6 Seconds (25.1-36.5); PROTHROMBIN TIME 11.9 SECONDS (9.4-12.5); RBC 2.42 10^6/uL (3.5-6.1); RED CELL DISTRIBUTION WIDTH 14.8 % (11.5-14.5); WHITE BLOOD COUNT 11.4 10^3/ul (4.5-11.0)
[2018-07-18] MEDS: Sodium Chloride 0.9% 1,000 ML IV SCH ×2 (06:39→20:10)
[2018-07-18 06:59] LABS: ALB/GLOB RATIO 1.2 (1.1-1.8); ALBUMIN 2.5 g/dL (3.0-4.8); ALT/SGPT 39 U/L (7-56); AST/SGOT 18 U/L (17-59); BLOOD UREA NITROGEN 32 mg/dL (7-21); CALCIUM 8.2 mg/dL (8.4-10.5); GFR NON-AFRICAN AMERICAN > 60
--- NOTE | 2018-07-18 07:15 | CARD ---
APPROVED REPORT Date of service: 07/17/2018 EKG Measurement Heart [id number] <Conclusion> Sinus tachycardia RVCD NSSTW changes
--- NOTE | 2018-07-18 07:43 | CP.PCM.HP ---
<ElmaNora - Last Filed: 07/18/18 11:15> History of Present Illness - History of Present Illness History of Present Illness: H&P for Andreas Chiu PGY3 This is a 77yo male with HTN, HLD, BPH, blind, severe acquired Hemophilia A, anemia of chronic disease who came to ED for nausea/vomiting with coffee ground emesis x 1 day. Patient states that yesterday morning he was having abdominal pain in his epigastric region that did not radiate. He vomited about 3 times that was dark in color as per daughter. He also had an episode of dark tarry stool. He reports he had a colonoscopy 1 yr ago and it was normal. He states this has never happened before. Since admission, his abdominal pain has improved. He denies chest pain, shortness of breath, numbness/tingling, fever/chills, or change in diet. Past medical history: HTN, HLD, BPH, blind, severe aqcuired Hemophilia A, anemia Past surgical history: Denies Home meds: Reviewed as per MAR Allergies: NKDA Social history: Denies Etoh, tobacco or drug use. Lives with children Family history: Both parents: DM and Heart problems Figure Clerk: Dr. Moscoso- [facility] Present on Admission - Present on Admission Any Indicators Present on Admission: No Review of Systems - Review of Systems All systems: reviewed and no additional remarkable complaints except Review of Systems: 12 point ROS reviewed as per HPI and is otherwise negative. Past Patient History - Infectious Disease Hx of Infectious Diseases: None - Past Social History Smoking Status: Never Smoked - CARDIAC Hx Cardiac Disorders: Yes Hx Hypertension: Yes - PULMONARY Hx Respiratory Disorders: No - NEUROLOGICAL Hx Neurological Disorder: No - HEENT Hx HEENT Problems: Yes 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) Hx Cataracts: Yes (sx b/l) - RENAL Hx Chronic Kidney Disease: Yes Hx Kidney Stones: Yes (lithotripsy) - ENDOCRINE/METABOLIC Hx Endocrine Disorders: No - HEMATOLOGICAL/ONCOLOGICAL Hx Blood Disorders: Yes Other/Comment: macrocytosis without anemia - INTEGUMENTARY Hx Dermatological Problems: Yes (hx lipoma) Hx Psoriasis: Yes - MUSCULOSKELETAL/RHEUMATOLOGICAL Hx Musculoskeletal Disorders: Yes Hx Falls: Yes (fell today) Hx Unsteady Gait: Yes - GASTROINTESTINAL Hx Gastrointestinal Disorders: Yes (colon polyps,HEMORRHOIDS ROMOVED WITH RUBBER BAND TECHNIQUE) - GENITOURINARY/GYNECOLOGICAL Hx Genitourinary Disorders: Yes Hx Prostate Problems: Yes (bph, elevated psa) - PSYCHIATRIC Hx Psychophysiologic Disorder: No Hx Substance Use: No - SURGICAL HISTORY Hx Surgeries: Yes (LITHOTRIPSY,HEART STENTS) Hx Coronary Stent: Yes - ANESTHESIA Hx Anesthesia: Yes Hx Anesthesia Reactions: No Hx Malignant Hyperthermia: No Meds Allergies/Adverse Reactions: Allergies Allergy/AdvReac Type Severity Reaction Status Date / Time No Known Allergies Allergy Verified 07/17/18 21:33 Physical Exam - Constitutional Appears: No Acute Distress - Head Exam Head Exam: ATRAUMATIC, NORMAL INSPECTION, NORMOCEPHALIC - Eye Exam Additional comments: R eye inverted. Pt blind. Could not perform eye exam - ENT Exam ENT Exam: Mucous Membranes Moist - Respiratory Exam Respiratory Exam: Clear to Auscultation Bilateral, NORMAL BREATHING PATTERN. absent: Rales, Rhonchi, Wheezes - Cardiovascular Exam Cardiovascular Exam: REGULAR RHYTHM, +S1, +S2. absent: Gallop, Rubs, Systolic Murmur - GI/Abdominal Exam GI & Abdominal Exam: Normal Bowel Sounds, Soft. absent: Mass, Rebound, Rigid, Tenderness - Extremities Exam Extremities exam: Positive for: normal inspection. Negative for: calf tenderness, pedal edema - Neurological Exam Neurological exam: Alert, CN II-XII Intact, Oriented x3 - Psychiatric Exam Psychiatric exam: Normal Affect, Normal Mood - Skin Skin Exam: Dry, Warm Results - Vital Signs Recent Vital Signs: Last Vital Signs Temp 98.3 F 07/18/18 06:00 Pulse 85 07/18/18 06:00 Resp 18 07/18/18 06:00 BP 90/49 L 07/18/18 06:00 Pulse Ox 98 07/18/18 06:00 - Labs Result Diagrams: 07/18/18 06:00 07/18/18 06:00 Labs: Laboratory Results - last 24 hr 07/17/18 07/17/18 07/17/18 15:20 15:20 15:20 WBC 11.8 H D RBC 2.73 L Hgb 10.0 L Hct 29.1 L MCV 106.6 H MCH 36.6 H MCHC 34.4 RDW 14.6 H Plt Count 181 MPV 10.1 Gran % 90.5 H Lymph % (Auto) 3.9 L Benson % (Auto) 5.4 Eos % (Auto) 0.0 L Baso % (Auto) 0.2 Gran # 10.68 H Lymph # (Auto) 0.5 L Benson # (Auto) 0.6 Eos # (Auto) 0.0 Baso # (Auto) 0.02 Neutrophils % (Manual) 88 H Lymphocytes % (Manual) 2 L Monocytes % (Manual) 7 H Metamyelocytes % 2 Myelocytes % 1 Platelet Evaluation Normal PT INR APTT Sodium 135 Potassium 4.5 Chloride 106 Carbon Dioxide 24 Anion Gap 10 BUN 48 H Creatinine 0.9 Est GFR ( Amer) > 60 Est GFR (Non-Af Amer) > 60 Random Glucose 155 H Calcium 8.9 Total Bilirubin 0.3 AST 18 ALT 40 Alkaline Phosphatase 48 Troponin I < 0.01 Total Protein 5.1 L Albumin 3.0 Globulin 2.1 Albumin/Globulin Ratio 1.4 Lipase 197 Blood Type O POSITIVE Antibody Screen Negative BBK History Checked Patient has bt 07/17/18 07/18/18 07/18/18 15:20 06:00 06:00 WBC 11.4 H RBC 2.42 L Hgb 8.8 L Hct 26.0 L MCV 107.4 H MCH 36.4 H MCHC 33.8 RDW 14.8 H Plt Count 172 MPV 9.9 Gran % 72.8 H Lymph % (Auto) 17.0 L Benson % (Auto) 9.4 H Eos % (Auto) 0.6 L Baso % (Auto) 0.2 Gran # 8.28 H Lymph # (Auto) 1.9 Benson # (Auto) 1.1 H Eos # (Auto) 0.1 Baso # (Auto) 0.02 Neutrophils % (Manual) Lymphocytes % (Manual) Monocytes % (Manual) Metamyelocytes % Myelocytes % Platelet Evaluation PT 11.5 11.9 INR 1.01 1.03 APTT 44.7 H 46.6 H Sodium Potassium Chloride Carbon Dioxide Anion Gap BUN Creatinine Est GFR ( Amer) Est GFR (Non-Af Amer) Random Glucose Calcium Total Bilirubin AST ALT Alkaline Phosphatase Troponin I Total Protein Albumin Globulin Albumin/Globulin Ratio Lipase Blood Type Antibody Screen BBK History Checked 07/18/18 06:00 WBC RBC Hgb Hct MCV MCH MCHC RDW Plt Count MPV Gran % Lymph % (Auto) Benson % (Auto) Eos % (Auto) Baso % (Auto) Gran # Lymph # (Auto) Benson # (Auto) Eos # (Auto) Baso # (Auto) Neutrophils % (Manual) Lymphocytes % (Manual) Monocytes % (Manual) Metamyelocytes % Myelocytes % Platelet Evaluation PT INR APTT Sodium 137 Potassium 4.3 Chloride 106 Carbon Dioxide 26 Anion Gap 9 L BUN 32 H Creatinine 0.9 Est GFR ( Amer) > 60 Est GFR (Non-Af Amer) > 60 Random Glucose 85 Calcium 8.2 L Total Bilirubin 0.4 AST 18 ALT 39 Alkaline Phosphatase 34 L D Troponin I Total Protein 4.5 L Albumin 2.5 L Globulin 2.1 Albumin/Globulin Ratio 1.2 Lipase Blood Type Antibody Screen BBK History Checked Assessment & Plan - Assessment and Plan (Free Text) Assessment: This is a 77yo male with HTN, HLD, BPH, blind, severe acquired Hemophilia A, anemia of chronic disease who is admitted for 1. GI bleed 2. Hemophilia A 3. HTN - BP low 4. HLD 5. BPH Plan: Overnight, there were no more episodes of vomiting or dark stools as per nursing staff. GI is consulted. Patient is on IV fluids and Protonix. Clear liquid diet. Continue to monitor H/H. Continue BPH medications. Patient's BP is low so Lisinopril is on hold. He is on GI prophylaxis. SCDs for DVT prophylaxis. Case seen, discussed and reviewed with Dr. Esdras Wills PGY3 - Date & Time Date: 07/18/18 Time: 08:24 <Keanu Dewitt - Last Filed: 07/18/18 19:33> Results - Vital Signs Recent Vital Signs: Last Vital Signs Temp 98.3 F 07/18/18 17:17 Pulse 94 H 07/18/18 18:00 Resp 19 07/18/18 17:17 BP 103/61 07/18/18 17:17 Pulse Ox 98 07/18/18 06:00 - Labs Result Diagrams: 07/18/18 18:38 07/18/18 06:00 Labs: Laboratory Results - last 24 hr 07/18/18 07/18/18 07/18/18 06:00 06:00 06:00 WBC 11.4 H RBC 2.42 L Hgb 8.8 L Hct 26.0 L MCV 107.4 H MCH 36.4 H MCHC 33.8 RDW 14.8 H Plt Count 172 MPV 9.9 Gran % 72.8 H Lymph % (Auto) 17.0 L Benson % (Auto) 9.4 H Eos % (Auto) 0.6 L Baso % (Auto) 0.2 Gran # 8.28 H Lymph # (Auto) 1.9 Benson # (Auto) 1.1 H Eos # (Auto) 0.1 Baso # (Auto) 0.02 PT 11.9 INR 1.03 APTT 46.6 H Sodium 137 Potassium 4.3 Chloride 106 Carbon Dioxide 26 Anion Gap 9 L BUN 32 H Creatinine 0.9 Est GFR ( Amer) > 60 Est GFR (Non-Af Amer) > 60 Random Glucose 85 Calcium 8.2 L Total Bilirubin 0.4 AST 18 ALT 39 Alkaline Phosphatase 34 L D Total Protein 4.5 L Albumin 2.5 L Globulin 2.1 Albumin/Globulin Ratio 1.2 07/18/18 18:38 WBC 9.2 RBC 2.45 L Hgb 8.8 L Hct 26.3 L MCV 107.3 H MCH 35.9 H MCHC 33.5 RDW 14.7 H Plt Count 187 MPV 10.0 Gran % Lymph % (Auto) Benson % (Auto) Eos % (Auto) Baso % (Auto) Gran # Lymph # (Auto) Benson # (Auto) Eos # (Auto) Baso # (Auto) PT INR APTT Sodium Potassium Chloride Carbon Dioxide Anion Gap BUN Creatinine Est GFR ( Amer) Est GFR (Non-Af Amer) Random Glucose Calcium Total Bilirubin AST ALT Alkaline Phosphatase Total Protein Albumin Globulin Albumin/Globulin Ratio Assessment & Plan - Assessment and Plan (Free Text) Plan: Pt seen and examined. I have reviewed the note of the medical practitioners and agree with it. I have discussed the assessment and plan with the resident. I have reviewed the patient's labs and medications. Pt with GIB. He has hx of hemophilia. He is on a liq diet. Will get GI evaluation. No vomiting. Pt is on Protonix.
--- NOTE | 2018-07-18 12:48 | CP.PCM.CON ---
<EliasDeandre saunders - Last Filed: 07/18/18 17:06> History of Present Illness - History of Present Illness History of Present Illness: Davis Iyer PGY2 Internal Medicine Resident - Consult note for Dr. Posey GI Service Consulted: Hematemesis HPI: 77 year old male with HTN, HLD, blindness, severe acquired Hemophilia A, anemia of chronic disease who presented to [facility] ED with his family complaining of one episode of coffee ground emesis overnight and dark colored stool. Patient is legally blind and is unable to describe the emesis or his stool color. Phone conversation with his daughter indicates that at 3 am prior to admission the patient experienced one episode of dark coffee ground looking emesis. Patient and family deny any history of GI bleeding. Patient indicates that he recently had an [place] done about 3 or 4 months ago [place] [facility] [place] indicates that after the procedure he was given antibiotics for suspected H. pylori. Patient also reports colonoscopy previously with reportedly polyps and biopsies that were taken and benign. Patient does indicated some nausea but is able to tolerate solid foods and liquids. Patient reports improved abdominal discomfort. He does indicate that for the past few weeks he has noticed he gets more short of breath with walking/climbing up stairs that he previously did not notice. He denies fever, chills, diarrhea, dysphagia, acid reflux, constipation. PMH: HTN, HLD, BPH, blind, severe acquired Hemophilia A, anemia PSH: Denies SOCHX: Denies tobacco, ETOH, ID FMH: DM2, CAD ALL: NKDA MEDS: MAR reviewed Chlorine Operator: Dr. Moscoso - [place] Review of Systems - Review of Systems All systems: reviewed and no additional remarkable complaints except (as mentioned in HPI) Past Patient History - Infectious Disease Hx of Infectious Diseases: None - Past Social History Smoking Status: Never Smoked - CARDIAC Hx Cardiac Disorders: Yes Hx Hypertension: Yes - PULMONARY Hx Respiratory Disorders: No - NEUROLOGICAL Hx Neurological Disorder: No - HEENT Hx HEENT Problems: Yes 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) Hx Cataracts: Yes (sx b/l) - RENAL Hx Chronic Kidney Disease: Yes Hx Kidney Stones: Yes (lithotripsy) - ENDOCRINE/METABOLIC Hx Endocrine Disorders: No - HEMATOLOGICAL/ONCOLOGICAL Hx Blood Disorders: Yes Other/Comment: macrocytosis without anemia - INTEGUMENTARY Hx Dermatological Problems: Yes (hx lipoma) Hx Psoriasis: Yes - MUSCULOSKELETAL/RHEUMATOLOGICAL Hx Musculoskeletal Disorders: Yes Hx Falls: Yes (fell today) Hx Unsteady Gait: Yes - GASTROINTESTINAL Hx Gastrointestinal Disorders: Yes (colon polyps,HEMORRHOIDS ROMOVED WITH RUBBER BAND TECHNIQUE) - GENITOURINARY/GYNECOLOGICAL Hx Genitourinary Disorders: Yes Hx Prostate Problems: Yes (bph, elevated psa) - PSYCHIATRIC Hx Psychophysiologic Disorder: No Hx Substance Use: No - SURGICAL HISTORY Hx Surgeries: Yes (LITHOTRIPSY,HEART STENTS) Hx Coronary Stent: Yes - ANESTHESIA Hx Anesthesia: Yes Hx Anesthesia Reactions: No Hx Malignant Hyperthermia: No Meds Allergies/Adverse Reactions: Allergies Allergy/AdvReac Type Severity Reaction Status Date / Time No Known Allergies Allergy Verified 07/17/18 21:33 - Medications Medications: Current Medications Atorvastatin Calcium (Lipitor) 20 mg PO HS [facility] Finasteride (Proscar) 5 mg PO DAILY [facility] Last Admin: 07/18/18 10:06 Dose: 5 mg Pantoprazole Sodium (Protonix 40mg Ivpb) 40 mg in 100 mls @ 20 mls/hr IVPB .Q5H [facility] Last Admin: 07/18/18 08:27 Dose: 20 mls/hr Sodium Chloride (Sodium Chloride 0.9%) 1,000 mls @ 75 mls/hr IV .[id number] [facility] Last Admin: 07/18/18 06:39 Dose: 75 mls/hr Tamsulosin HCl (Flomax) 0.4 mg PO DAILY [facility] Last Admin: 07/18/18 10:06 Dose: 0.4 mg Physical Exam - Constitutional Appears: Non-toxic - Head Exam Head Exam: ATRAUMATIC, NORMAL INSPECTION, NORMOCEPHALIC - Eye Exam Eye Exam: EOMI, PERRL - Respiratory Exam Respiratory Exam: Clear to Auscultation Bilateral, NORMAL BREATHING PATTERN - Cardiovascular Exam Cardiovascular Exam: REGULAR RHYTHM, +S1, +S2 - GI/Abdominal Exam GI & Abdominal Exam: Normal Bowel Sounds, Soft - Extremities Exam Extremities exam: Negative for: calf tenderness, pedal edema - Neurological Exam Neurological exam: Alert, Oriented x3 - Psychiatric Exam Psychiatric exam: Normal Affect, Normal Mood - Skin Skin Exam: Dry, Intact Results - Vital Signs Recent Vital Signs: Last Vital Signs Temp 98.5 F 09/26/18 11:57 Pulse 68 07/18/18 11:57 Resp 20 07/18/18 11:57 BP 101/60 07/18/18 11:57 Pulse Ox 98 07/18/18 06:00 - Labs Result Diagrams: 07/18/18 06:00 07/18/18 06:00 Labs: Laboratory Results - last 24 hr 07/17/18 07/17/18 07/17/18 15:20 15:20 15:20 WBC 11.8 H D RBC 2.73 L Hgb 10.0 L Hct 29.1 L MCV 106.6 H MCH 36.6 H MCHC 34.4 RDW 14.6 H Plt Count 181 MPV 10.1 Gran % 90.5 H Lymph % (Auto) 3.9 L Gates % (Auto) 5.4 Eos % (Auto) 0.0 L Baso % (Auto) 0.2 Gran # 10.68 H Lymph # (Auto) 0.5 L Gates # (Auto) 0.6 Eos # (Auto) 0.0 Baso # (Auto) 0.02 Neutrophils % (Manual) 88 H Lymphocytes % (Manual) 2 L Monocytes % (Manual) 7 H Metamyelocytes % 2 Myelocytes % 1 Platelet Evaluation Normal PT INR APTT Sodium 135 Potassium 4.5 Chloride 106 Carbon Dioxide 24 Anion Gap 10 BUN 48 H Creatinine 0.9 Est GFR ( Amer) > 60 Est GFR (Non-Af Amer) > 60 Random Glucose 155 H Calcium 8.9 Total Bilirubin 0.3 AST 18 ALT 40 Alkaline Phosphatase 48 Troponin I < 0.01 Total Protein 5.1 L Albumin 3.0 Globulin 2.1 Albumin/Globulin Ratio 1.4 Lipase 197 Blood Type O POSITIVE Antibody Screen Negative BBK History Checked Patient has bt 07/17/18 07/18/18 07/18/18 15:20 06:00 06:00 WBC 11.4 H RBC 2.42 L Hgb 8.8 L Hct 26.0 L MCV 107.4 H MCH 36.4 H MCHC 33.8 RDW 14.8 H Plt Count 172 MPV 9.9 Gran % 72.8 H Lymph % (Auto) 17.0 L Gates % (Auto) 9.4 H Eos % (Auto) 0.6 L Baso % (Auto) 0.2 Gran # 8.28 H Lymph # (Auto) 1.9 Gates # (Auto) 1.1 H Eos # (Auto) 0.1 Baso # (Auto) 0.02 Neutrophils % (Manual) Lymphocytes % (Manual) Monocytes % (Manual) Metamyelocytes % Myelocytes % Platelet Evaluation PT 11.5 11.9 INR 1.01 1.03 APTT 44.7 H 46.6 H Sodium Potassium Chloride Carbon Dioxide Anion Gap BUN Creatinine Est GFR ( Amer) Est GFR (Non-Af Amer) Random Glucose Calcium Total Bilirubin AST ALT Alkaline Phosphatase Troponin I Total Protein Albumin Globulin Albumin/Globulin Ratio Lipase Blood Type Antibody Screen BBK History Checked 07/18/18 06:00 WBC RBC Hgb Hct MCV MCH MCHC RDW Plt Count MPV Gran % Lymph % (Auto) Gates % (Auto) Eos % (Auto) Baso % (Auto) Gran # Lymph # (Auto) Gates # (Auto) Eos # (Auto) Baso # (Auto) Neutrophils % (Manual) Lymphocytes % (Manual) Monocytes % (Manual) Metamyelocytes % Myelocytes % Platelet Evaluation PT INR APTT Sodium 137 Potassium 4.3 Chloride 106 Carbon Dioxide 26 Anion Gap 9 L BUN 32 H Creatinine 0.9 Est GFR ( Amer) > 60 Est GFR (Non-Af Amer) > 60 Random Glucose 85 Calcium 8.2 L Total Bilirubin 0.4 AST 18 ALT 39 Alkaline Phosphatase 34 L D Troponin I Total Protein 4.5 L Albumin 2.5 L Globulin 2.1 Albumin/Globulin Ratio 1.2 Lipase Blood Type Antibody Screen BBK History Checked Assessment & Plan - Assessment and Plan (Free Text) Assessment: Davis Iyer PGY2 Internal Medicine Resident - Consult note for Dr. Posey GI Service Consulted: Enlarged Gallbladder HPI: 77 year old male with HTN, HLD, blindness, severe acquired Hemophilia A, anemia of chronic disease who presented to [facility] ED with his family complaining of one episode of coffee ground emesis overnight and dark colored stool. Patient is legally blind and is unable to describe the emesis or his stool color. Phone conversation with his daughter indicates that at 3 am prior to admission the patient expereinced one episode of dark coffee ground looking emesis. Patient and family deny any history of GI bleeding. Patient indicates that he recently had an EGD done about 3 or 4 months ago [place] [facility] [place] Patient indicates that after the procedure he was given antibiotics for suspected H. pylori. Patient also reports colonoscopy previously with reportedly polyps and biopsies that were taken and benign. Patient does inidcated some nausea but is able to tolerate solid foods and liquids. Patient reports improved abdominal discomfort. He does indicate that for the past few weeks he has noticed he gets more short of breath with walking/climbing up stairs that he previously did notnotice. He denies fever, chills, diarrhea, dysphagia, acid reflux, constipai ton. PMH: HTN, HLD, BPH, blind, severe acquired Hemophilia A, anemia PSH: Denies SOCHX: Denies tobacco, ETOH, ID FMH: DM2, CAD ALL: NKDA MEDS: MAR reviewed Chlorine Operator: Dr. Moscoso - [place] Plan: Hematemesis Anemia Hemophilia A ?hx of H. 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 Posey - Date & Time Date: 07/18/18 Time: 08:45 <Netta Posey V - Last Filed: 07/18/18 21:58> Meds - Medications Medications: Current Medications Atorvastatin Calcium (Lipitor) 20 mg PO HS [facility] Last Admin: 07/18/18 21:29 Dose: 20 mg Finasteride (Proscar) 5 mg PO DAILY [facility] Last Admin: 07/18/18 10:06 Dose: 5 mg Pantoprazole Sodium (Protonix 40mg Ivpb) 40 mg in 100 mls @ 20 mls/hr IVPB .Q5H [facility] Last Admin: 07/18/18 21:32 Dose: 20 mls/hr Sodium Chloride (Sodium Chloride 0.9%) 1,000 mls @ 75 mls/hr IV .[id number] [facility] Last Admin: 07/18/18 20:10 Dose: 75 mls/hr Tamsulosin HCl (Flomax) 0.4 mg PO DAILY [facility] Last Admin: 07/18/18 10:06 Dose: 0.4 mg Results - Vital Signs Recent Vital Signs: Last Vital Signs Temp 98.3 F 07/18/18 17:17 Pulse 94 H 07/18/18 18:00 Resp 19 07/18/18 17:17 BP 103/61 07/18/18 17:17 Pulse Ox 98 07/18/18 06:00 - Labs Result Diagrams: 07/18/18 18:38 07/18/18 06:00 Labs: Laboratory Results - last 24 hr 07/18/18 07/18/18 07/18/18 06:00 06:00 06:00 WBC 11.4 H RBC 2.42 L Hgb 8.8 L Hct 26.0 L MCV 107.4 H MCH 36.4 H MCHC 33.8 RDW 14.8 H Plt Count 172 MPV 9.9 Gran % 72.8 H Lymph % (Auto) 17.0 L Gates % (Auto) 9.4 H Eos % (Auto) 0.6 L Baso % (Auto) 0.2 Gran # 8.28 H Lymph # (Auto) 1.9 Gates # (Auto) 1.1 H Eos # (Auto) 0.1 Baso # (Auto) 0.02 PT 11.9 INR 1.03 APTT 46.6 H Sodium 137 Potassium 4.3 Chloride 106 Carbon Dioxide 26 Anion Gap 9 L BUN 32 H Creatinine 0.9 Est GFR ( Amer) > 60 Est GFR (Non-Af Amer) > 60 Random Glucose 85 Calcium 8.2 L Total Bilirubin 0.4 AST 18 ALT 39 Alkaline Phosphatase 34 L D Total Protein 4.5 L Albumin 2.5 L Globulin 2.1 Albumin/Globulin Ratio 1.2 07/18/18 18:38 WBC 9.2 RBC 2.45 L Hgb 8.8 L Hct 26.3 L MCV 107.3 H MCH 35.9 H MCHC 33.5 RDW 14.7 H Plt Count 187 MPV 10.0 Gran % Lymph % (Auto) Gates % (Auto) Eos % (Auto) Baso % (Auto) Gran # Lymph # (Auto) Gates # (Auto) Eos # (Auto) Baso # (Auto) PT INR APTT Sodium Potassium Chloride Carbon Dioxide Anion Gap BUN Creatinine Est GFR ( Amer) Est GFR (Non-Af Amer) Random Glucose Calcium Total Bilirubin AST ALT Alkaline Phosphatase Total Protein Albumin Globulin Albumin/Globulin Ratio Attending/Attestation - Attestation I have personally seen and examined this patient.: Yes I have fully participated in the care of the patient.: Yes I have reviewed all pertinent clinical information: Yes Notes (Text): This is an addendum to GI consult report dictated by the GI Fellow.The patient was seen and examined earlier. Medical records, lab studies, imagings were reviewed. Last 24 hours events reviewed. Agreed with the above treatment plan as outlined in GI Fellow 's notes with the addition of the following This patient family was at bedside at the time of examination Has an episode of vomiting coffee grounds and dark stools History of hemophilia Discussed with Dr. Coker Will schedule the patient for endoscopy EGD for further evaluate Continue PPI followup HCT 07/18/18 21:54
[2018-07-18 19:11] LABS: HEMOGLOBIN 8.8 g/dL (14.0-18.0); MEAN CELL VOLUME 107.3 fl (80.0-105.0); MEAN CORPUSCULAR HEMOGLOBIN 35.9 pg (25.0-35.0); MEAN CORPUSCULAR HGB CONC 33.5 g/dl (31.0-37.0); RBC 2.45 10^6/uL (3.5-6.1); RED CELL DISTRIBUTION WIDTH 14.7 % (11.5-14.5); WHITE BLOOD COUNT 9.2 10^3/ul (4.5-11.0)
[2018-07-19] MEDS: Pantoprazole 40mg/100mL NS 40 MG/100 ML BAG IVPB SCH ×4 (05:35→20:44)
[2018-07-19 07:24] LABS: HEMOGLOBIN 8.3 g/dL (14.0-18.0); MEAN CELL VOLUME 106.9 fl (80.0-105.0); MEAN CORPUSCULAR HEMOGLOBIN 35.8 pg (25.0-35.0); MEAN CORPUSCULAR HGB CONC 33.5 g/dl (31.0-37.0); MEAN PLATELET VOLUME 9.7 fl (7.0-11.0); RBC 2.32 10^6/uL (3.5-6.1); RED CELL DISTRIBUTION WIDTH 14.8 % (11.5-14.5); WHITE BLOOD COUNT 7.6 10^3/ul (4.5-11.0)
[2018-07-19 07:32] LABS: INR 1.02; PARTIAL THROMBOPLASTIN TIME 53.5 Seconds (25.1-36.5); PROTHROMBIN TIME 11.7 SECONDS (9.4-12.5)
[2018-07-19 07:46] LABS: ALB/GLOB RATIO 1.2 (1.1-1.8); ALBUMIN 2.5 g/dL (3.0-4.8); ALT/SGPT 48 U/L (7-56); AST/SGOT 27 U/L (17-59); BLOOD UREA NITROGEN 13 mg/dL (7-21); CALCIUM 7.8 mg/dL (8.4-10.5); GFR NON-AFRICAN AMERICAN > 60
--- NOTE | 2018-07-19 09:56 | CP.PCM.PN ---
<Nora Wills - Last Filed: 07/19/18 09:47> Subjective - Date & Time of Evaluation Date of Evaluation: 07/19/18 Time of Evaluation: 07:00 - Subjective Subjective: Medicine Progress Note for Andreas Chiu PGY3 Patient seen and examined at bedside. There were no acute overnight events as per nursing staff. He denies chest pain, shortness of breath, nausea/vomiting/diarrhea, numbness/tingling, fever/chills, abdominal pain. Objective - Vital Signs/Intake and Output Vital Signs (last 24 hours): Temp Pulse Resp BP Pulse Ox 98.1 F 90 20 117/65 97 07/19/18 06:00 07/19/18 06:00 07/19/18 06:00 07/19/18 06:00 07/19/18 06:00 Intake and Output: 07/19/18 07/19/18 06:59 18:59 Intake Total 1235 Output Total 1500 Balance -265 - Medications Medications: Current Medications Atorvastatin Calcium (Lipitor) 20 mg PO HS [facility] Last Admin: 07/18/18 21:29 Dose: 20 mg Finasteride (Proscar) 5 mg PO DAILY [facility] Last Admin: 07/19/18 09:10 Dose: 5 mg Pantoprazole Sodium (Protonix 40mg Ivpb) 40 mg in 100 mls @ 20 mls/hr IVPB .Q5H [facility] Last Admin: 07/19/18 09:09 Dose: 20 mls/hr Sodium Chloride (Sodium Chloride 0.9%) 1,000 mls @ 75 mls/hr IV .[id number] [facility] Last Admin: 07/18/18 20:10 Dose: 75 mls/hr Tamsulosin HCl (Flomax) 0.4 mg PO DAILY [facility] Last Admin: 07/19/18 09:10 Dose: 0.4 mg - Labs Labs: 07/19/18 06:30 07/19/18 06:30 PT 11.7 SECONDS (9.4-12.5) 07/19/18 06:30 INR 1.02 07/19/18 06:30 APTT 53.5 Seconds (25.1-36.5) H 07/19/18 06:30 - Constitutional Appears: No Acute Distress - Head Exam Head Exam: ATRAUMATIC, NORMAL INSPECTION, NORMOCEPHALIC - ENT Exam ENT Exam: Mucous Membranes Moist - Respiratory Exam Respiratory Exam: Clear to Ausculation Bilateral, NORMAL BREATHING PATTERN. absent: Rales, Rhonchi, Wheezes - Cardiovascular Exam Cardiovascular Exam: REGULAR RHYTHM, +S1, +S2. absent: Gallop, Rubs, Murmur - GI/Abdominal Exam GI & Abdominal Exam: Soft, Normal Bowel Sounds. absent: Rigid, Tenderness, Mass, Rebound - Extremities Exam Extremities Exam: Normal Inspection. absent: Calf Tenderness, Pedal Edema - Neurological Exam Neurological Exam: Alert, Awake, CN II-XII Intact, Oriented x3 - Psychiatric Exam Psychiatric exam: Normal Affect, Normal Mood - Skin Skin Exam: Dry, Warm Assessment and Plan - Assessment and Plan (Free Text) Assessment: This is a 77yo male with HTN, HLD, BPH, blind, severe acquired Hemophilia A, anemia of chronic disease who is admitted for 1. GI bleed 2. Hemophilia A 3. HTN - BP low 4. HLD 5. BPH Plan: Hgb stable. There were no further episodes of bleeding. Patient is on clear liquid diet, IV fluids and protonix. Continue Flomax and Proscar. Will continue to hold Lisinopril. Case seen, discussed and reviewed with Dr. Esdras Wills PGY3 <Keanu Dewitt S - Last Filed: 07/19/18 19:52> Objective - Vital Signs/Intake and Output Vital Signs (last 24 hours): Temp Pulse Resp BP Pulse Ox 97.7 F 111 H 20 138/80 97 07/19/18 17:56 07/19/18 18:00 07/19/18 17:56 07/19/18 17:56 07/19/18 06:00 Intake and Output: 07/19/18 07/20/18 18:59 06:59 Intake Total 2100 960 Output Total 200 200 Balance 1900 760 - Medications Medications: Current Medications Antihemophilic Factor (Hemofil M) 1,600 intlu IVP ONCE ONE Stop: 07/20/18 07:01 Atorvastatin Calcium (Lipitor) 20 mg PO HS [facility] Last Admin: 07/18/18 21:29 Dose: 20 mg Finasteride (Proscar) 5 mg PO DAILY [facility] Last Admin: 07/19/18 09:10 Dose: 5 mg Pantoprazole Sodium (Protonix 40mg Ivpb) 40 mg in 100 mls @ 20 mls/hr IVPB .Q5H [facility] Last Admin: 07/19/18 17:34 Dose: 20 mls/hr Sodium Chloride (Sodium Chloride 0.9%) 1,000 mls @ 75 mls/hr IV .[id number] [facility] Last Admin: 07/19/18 10:48 Dose: 75 mls/hr Tamsulosin HCl (Flomax) 0.4 mg PO DAILY [facility] Last Admin: 07/19/18 09:10 Dose: 0.4 mg - Labs Labs: 07/19/18 06:30 07/19/18 06:30 PT 11.7 SECONDS (9.4-12.5) 07/19/18 06:30 INR 1.02 07/19/18 06:30 APTT 53.5 Seconds (25.1-36.5) H 07/19/18 06:30 Assessment and Plan - Assessment and Plan (Free Text) Assessment: Pt seen and examined. I have reviewed the note of the medical radiation tech and agree with it. I have discussed the assessment and plan with the resident. I have reviewed the patient's labs and medications. Pt with GIB, H/H stable. GI following. Follow BP. Dyslidemia. Pt is blind.
[2018-07-19] MEDS: Sodium Chloride 0.9% 1,000 ML IV SCH (10:48)
--- NOTE | 2018-07-19 10:55 | CP.PCM.CON ---
Addendum entered and electronically signed by Jose Alberto Parson DO 07/19/18 20:12: Given that Dr. Moscoso has not yet contacted us regarding his prior treatments, and the fact that administration of factor VIII concentrate could interact with antibodies present in the body to cause an adverse reaction, we will hold off on the infusion in the morning. We will contact Dr. Posey regarding possibly postponing the endoscopy until the proper labs (lab states it'll be about 11 d ays to receive the factor VIII Activity value) and paperwork is obtained, due to the fact that the patient is not currently bleeding and is stable. This addendum was discussed with Dr. Sheela Parson PGY2 Original Note: <Jose Alberto Parson - Last Filed: 07/19/18 20:12> History of Present Illness - History of Present Illness History of Present Illness: Jose Alberto Parson PGY2 Heme/Onc Consult note for Dr. Coker Mr. 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 Since his admission, the patient has had no episodes of vomiting and had a BM which was nonbloody. Hematology is consulted for his history of acquired hemophilia. The patient currently denies any vomiting, is having normal bowel movements, and denies fever/chills, weakness, chest pain or abdominal pain, dysuria. 12-pt ROS was reviewed and is otherwise unremarkable. Chart review reveals that patient was seen in the ED in 02/2018 for persistent bleeding to the wound following removal of a mole, wound was sutured and patient was discharged. In 04/2018, patient presented to the ED with right flank pain, and was noted to have ecchymosis on the right side with a drop in hemoglobin from last level. At that time, PTT was noted to be elevated and workup was done for a coagulation factor deficiency. During that visit, factor VIII activity was < 1% but there were no other significant deficiencies. The patient received multiple units of PRBC, FFP and cryoprecipitate. He was transfused with factor VIII twice, and was started on prednisone therapy. He was transferred to [facility] (Dr. Moscoso, outdoor studies director) where the patient states that he received chemotherapy, but is unsure what the medication was. The patient presented again in the ED on 06/18/18 for increased ecchymosis to the upper body and sacral area, was given 3 units of FFP and transferred to [facility]. Dr. Moscoso was contacted at [phone] and message was left to call back, but at this time, he has not reached back to me yet; office was also requested to fax medical progress notes to [address] [place] [phone]. Patient also has extensive GI history, for which he sees Dr. Cisneros. His office was contacted at [phone] and medical records were requested. The office was able to notify me that the patient was placed on ampicillin, clarithromycin and metronidazole for H. pylori in the end of March,. PMH: As above PSH: None Meds: Reviewed, as per MAR Allergies: NKDA SHX: Denies history of tobacco, alcohol or drug use FH X: No history of bleeding disorders, DM 2 and heart disease on both sides of the family Review of Systems - Review of Systems All systems: reviewed and no additional remarkable complaints except (as per MAR) Past Patient History - Infectious Disease Hx of Infectious Diseases: None - Past Medical History & Family History Past Medical History?: Yes Past Family History: Reviewed and not pertinent - Past Social History Smoking Status: Never Smoked Alcohol: None Drugs: Denies - CARDIAC Hx Cardiac Disorders: Yes Hx Hypercholesterolemia: Yes Hx Hypertension: Yes - PULMONARY Hx Respiratory Disorders: No - NEUROLOGICAL Hx Neurological Disorder: No - HEENT Hx HEENT Problems: Yes Hx Blind: Yes (r eye blind/ 50% vision left eye) Hx Cataracts: Yes (sx b/l) - RENAL Hx Kidney Stones: Yes (lithotripsy) - ENDOCRINE/METABOLIC Hx Endocrine Disorders: No - HEMATOLOGICAL/ONCOLOGICAL Hx Blood Disorders: Yes Hx Anemia: Yes Hx Blood Transfusions: Yes Hx Blood Transfusion Reaction: Yes Hx Bruising: Yes Hx Hepatitis A: Yes (acquired) - INTEGUMENTARY Hx Dermatological Problems: Yes (hx lipoma) Hx Psoriasis: Yes - MUSCULOSKELETAL/RHEUMATOLOGICAL Hx Musculoskeletal Disorders: Yes - GASTROINTESTINAL Hx Gastrointestinal Disorders: Yes (colon polyps,HEMORRHOIDS ROMOVED WITH RUBBER BAND TECHNIQUE) - GENITOURINARY/GYNECOLOGICAL Hx Genitourinary Disorders: Yes Hx Prostate Problems: Yes (bph, elevated psa) - PSYCHIATRIC Hx Psychophysiologic Disorder: No Hx Substance Use: No - SURGICAL HISTORY Hx Surgeries: Yes (LITHOTRIPSY,HEART STENTS) - ANESTHESIA Hx Anesthesia: Yes Hx Anesthesia Reactions: No Hx Malignant Hyperthermia: No Meds Allergies/Adverse Reactions: Allergies Allergy/AdvReac Type Severity Reaction Status Date / Time No Known Allergies Allergy Verified 07/17/18 21:33 - Medications Medications: Current Medications Atorvastatin Calcium (Lipitor) 20 mg PO HS [facility] Last Admin: 07/18/18 21:29 Dose: 20 mg Finasteride (Proscar) 5 mg PO DAILY [facility] Last Admin: 07/19/18 09:10 Dose: 5 mg Pantoprazole Sodium (Protonix 40mg Ivpb) 40 mg in 100 mls @ 20 mls/hr IVPB .Q5H [facility] Last Admin: 07/19/18 09:09 Dose: 20 mls/hr Sodium Chloride (Sodium Chloride 0.9%) 1,000 mls @ 75 mls/hr IV .[id number] [facility] Last Admin: 07/19/18 10:48 Dose: 75 mls/hr Tamsulosin HCl (Flomax) 0.4 mg PO DAILY [facility] Last Admin: 07/19/18 09:10 Dose: 0.4 mg Physical Exam - Constitutional Appears: Well, Non-toxic, No Acute Distress - Head Exam Head Exam: ATRAUMATIC, NORMAL INSPECTION - Eye Exam Additional comments: blind conjuctival pallor - ENT Exam ENT Exam: Mucous Membranes Moist - Neck Exam Neck exam: Positive for: Normal Inspection - Respiratory Exam Respiratory Exam: NORMAL BREATHING PATTERN. absent: Rales, Rhonchi, Wheezes - Cardiovascular Exam Cardiovascular Exam: RRR, +S1, +S2 - GI/Abdominal Exam GI & Abdominal Exam: Normal Bowel Sounds, Soft. absent: Distended, Tenderness Additional comments: mild resolving ecchymosios noted on r flank region - Extremities Exam Extremities exam: Positive for: full ROM, normal inspection. Negative for: pedal edema - Back Exam Back exam: NORMAL INSPECTION - Neurological Exam Neurological exam: Alert, Oriented x3 - Psychiatric Exam Psychiatric exam: Normal Mood - Skin Skin Exam: Normal Color Results - Vital Signs Recent Vital Signs: Last Vital Signs Temp 98.1 F 07/19/18 06:00 Pulse 90 07/19/18 06:00 Resp 20 07/19/18 06:00 BP 117/65 07/19/18 06:00 Pulse Ox 97 07/19/18 06:00 - Labs Result Diagrams: 07/19/18 06:30 07/19/18 06:30 Labs: Laboratory Results - last 24 hr 07/18/18 07/19/18 07/19/18 18:38 06:30 06:30 WBC 9.2 7.6 RBC 2.45 L 2.32 L Hgb 8.8 L 8.3 L Hct 26.3 L 24.8 L MCV 107.3 H 106.9 H MCH 35.9 H 35.8 H MCHC 33.5 33.5 RDW 14.7 H 14.8 H Plt Count 187 169 MPV 10.0 9.7 PT INR APTT Sodium 135 Potassium 3.6 Chloride 108 H Carbon Dioxide 25 Anion Gap 7 L BUN 13 Creatinine 0.8 Est GFR ( Amer) > 60 Est GFR (Non-Af Amer) > 60 Random Glucose 82 Calcium 7.8 L Total Bilirubin 0.4 AST 27 ALT 48 Alkaline Phosphatase 34 L Total Protein 4.6 L Albumin 2.5 L Globulin 2.2 Albumin/Globulin Ratio 1.2 07/19/18 06:30 WBC RBC Hgb Hct MCV MCH MCHC RDW Plt Count MPV PT 11.7 INR 1.02 APTT 53.5 H Sodium Potassium Chloride Carbon Dioxide Anion Gap BUN Creatinine Est GFR ( Amer) Est GFR (Non-Af Amer) Random Glucose Calcium Total Bilirubin AST ALT Alkaline Phosphatase Total Protein Albumin Globulin Albumin/Globulin Ratio Assessment & Plan - Assessment and Plan (Free Text) Assessment: 77 year old Male with a PMH of acquired hemophilia A, chronic anemia, severe chronic H.pylori gastritis, erosive esophagitis, hiatal hernia, esophageal candidiasis, diverticulosis, colonic polyps, internal hemorrhoids, HTN, HLD, BPH and 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 Patient will require upper endoscopy to evaluate the hematemesis, and GI is following. Patient will be optimized medically preop, and receive factor VIII concentrate. Plan: - We will continue to attempt to reach Dr. Moscoso to find out what therapy he provided the patient with - Awaiting GI records from Dr. Cisneros - We will administer 1600 units of factor VIII tomorrow prior to endoscopy - Monitor for signs of new bleeding - Monitor H/H AM - Further recs per Dr. Coker Case was reviewed and discussed with attending, Dr. Sheela Parson PGY2 <Neli Coker - Last Filed: 07/19/18 22:45> Meds - Medications Medications: Current Medications Antihemophilic Factor (Hemofil M) 1,600 intlu IVP ONCE ONE Stop: 07/20/18 07:01 Atorvastatin Calcium (Lipitor) 20 mg PO HS [facility] Last Admin: 07/19/18 22:24 Dose: 20 mg Finasteride (Proscar) 5 mg PO DAILY [facility] Last Admin: 07/19/18 09:10 Dose: 5 mg Pantoprazole Sodium (Protonix 40mg Ivpb) 40 mg in 100 mls @ 20 mls/hr IVPB .Q5H [facility] Last Admin: 07/19/18 20:44 Dose: 20 mls/hr Sodium Chloride (Sodium Chloride 0.9%) 1,000 mls @ 75 mls/hr IV .[id number] [facility] Last Admin: 07/19/18 10:48 Dose: 75 mls/hr Tamsulosin HCl (Flomax) 0.4 mg PO DAILY [facility] Last Admin: 07/19/18 09:10 Dose: 0.4 mg Results - Vital Signs Recent Vital Signs: Last Vital Signs Temp 97.7 F 07/19/18 17:56 Pulse 111 H 07/19/18 18:00 Resp 20 07/19/18 17:56 BP 138/80 07/19/18 17:56 Pulse Ox 97 07/19/18 06:00 - Labs Result Diagrams: 07/19/18 06:30 07/19/18 06:30 Labs: Laboratory Results - last 24 hr 07/19/18 07/19/18 07/19/18 06:30 06:30 06:30 WBC 7.6 RBC 2.32 L Hgb 8.3 L Hct 24.8 L MCV 106.9 H MCH 35.8 H MCHC 33.5 RDW 14.8 H Plt Count 169 MPV 9.7 PT 11.7 INR 1.02 APTT 53.5 H Sodium 135 Potassium 3.6 Chloride 108 H Carbon Dioxide 25 Anion Gap 7 L BUN 13 Creatinine 0.8 Est GFR ( Amer) > 60 Est GFR (Non-Af Amer) > 60 Random Glucose 82 Calcium 7.8 L Total Bilirubin 0.4 AST 27 ALT 48 Alkaline Phosphatase 34 L Total Protein 4.6 L Albumin 2.5 L Globulin 2.2 Albumin/Globulin Ratio 1.2 Attending/Attestation - Attestation I have personally seen and examined this patient.: Yes I have fully participated in the care of the patient.: Yes I have reviewed all pertinent clinical information: Yes
--- NOTE | 2018-07-19 16:23 | CP.PCM.PN ---
<Deandre Iyer - Last Filed: 07/19/18 16:27> Subjective - Date & Time of Evaluation Date of Evaluation: 07/19/18 Time of Evaluation: 08:15 - Subjective Subjective: Patient seen and examined. No acute events reported overnight. Patient hemoglobin and hematocrit are stable. No reports of bloody bm or hematemesis. Patient denies chest pain, shortness of breath, dizziness, abdominal pain. Objective - Vital Signs/Intake and Output Vital Signs (last 24 hours): Temp Pulse Resp BP Pulse Ox 97.9 F 92 H 20 126/75 97 07/19/18 11:58 07/19/18 11:58 07/19/18 11:58 07/19/18 11:58 07/19/18 06:00 Intake and Output: 07/19/18 07/19/18 06:59 18:59 Intake Total 1235 Output Total 1500 Balance -265 - Medications Medications: Current Medications Antihemophilic Factor (Hemofil M) 1,600 intlu IVP ONCE ONE Stop: 07/20/18 07:01 Atorvastatin Calcium (Lipitor) 20 mg PO HS [facility] Last Admin: 07/18/18 21:29 Dose: 20 mg Finasteride (Proscar) 5 mg PO DAILY [facility] Last Admin: 07/19/18 09:10 Dose: 5 mg Pantoprazole Sodium (Protonix 40mg Ivpb) 40 mg in 100 mls @ 20 mls/hr IVPB .Q5H [facility] Last Admin: 07/19/18 09:09 Dose: 20 mls/hr Sodium Chloride (Sodium Chloride 0.9%) 1,000 mls @ 75 mls/hr IV .[id number] [facility] Last Admin: 07/19/18 10:48 Dose: 75 mls/hr Tamsulosin HCl (Flomax) 0.4 mg PO DAILY [facility] Last Admin: 07/19/18 09:10 Dose: 0.4 mg - Labs Labs: 07/19/18 06:30 07/19/18 06:30 PT 11.7 SECONDS (9.4-12.5) 07/19/18 06:30 INR 1.02 07/19/18 06:30 APTT 53.5 Seconds (25.1-36.5) H 07/19/18 06:30 - Constitutional Appears: No Acute Distress - Head Exam Head Exam: ATRAUMATIC, NORMAL INSPECTION, NORMOCEPHALIC - Eye Exam Eye Exam: EOMI, PERRL - ENT Exam ENT Exam: Mucous Membranes Dry - Respiratory Exam Respiratory Exam: Clear to Ausculation Bilateral, NORMAL BREATHING PATTERN - Cardiovascular Exam Cardiovascular Exam: REGULAR RHYTHM, +S1, +S2 - GI/Abdominal Exam GI & Abdominal Exam: Soft, Normal Bowel Sounds. absent: Rigid, Tenderness - Extremities Exam Extremities Exam: Full ROM - Neurological Exam Neurological Exam: Alert, Awake, Oriented x3 Neuro motor strength exam: Left Upper Extremity: 5, Right Upper Extremity: 5, Left Lower Extremity: 5, Right Lower Extremity: 5 - Psychiatric Exam Psychiatric exam: Normal Affect, Normal Mood - Skin Skin Exam: Dry, Intact Assessment and Plan - Assessment and Plan (Free Text) Assessment: 77 year old Male with a PMH of acquired hemophilia A, chronic anemia, severe chronic H.pylori gastritis, erosive esophagitis, hiatal hernia, esop hageal candidiasis, diverticulosis, colonic polyps, internal hemorrhoids, HTN, HLD, BPH and 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 Plan: Hematemesis Hx of H. Pylori s/p triple therapy Hemophilia A severe acquired - Patient without abdominal complaints or hematemesis or bloody bm - Heme/Onc consulted for Hemophilia, follow up recs - Continue to monitor H/H - Will follow up with GI records from Dr. Cisneros - Patient to for EGD tomorrow <Netta Posey V - Last Filed: 07/19/18 22:59> Objective - Vital Signs/Intake and Output Vital Signs (last 24 hours): Temp Pulse Resp BP Pulse Ox 97.7 F 111 H 20 138/80 97 07/19/18 17:56 07/19/18 18:00 07/19/18 17:56 07/19/18 17:56 07/19/18 06:00 Intake and Output: 07/19/18 07/20/18 18:59 06:59 Intake Total 2100 960 Output Total 200 200 Balance 1900 760 - Medications Medications: Current Medications Antihemophilic Factor (Hemofil M) 1,600 intlu IVP ONCE ONE Stop: 07/20/18 07:01 Atorvastatin Calcium (Lipitor) 20 mg PO HS [facility] Last Admin: 07/19/18 22:24 Dose: 20 mg Finasteride (Proscar) 5 mg PO DAILY [facility] Last Admin: 07/19/18 09:10 Dose: 5 mg Pantoprazole Sodium (Protonix 40mg Ivpb) 40 mg in 100 mls @ 20 mls/hr IVPB .Q5H [facility] Last Admin: 07/19/18 20:44 Dose: 20 mls/hr Sodium Chloride (Sodium Chloride 0.9%) 1,000 mls @ 75 mls/hr IV .[id number] [facility] Last Admin: 07/19/18 10:48 Dose: 75 mls/hr Tamsulosin HCl (Flomax) 0.4 mg PO DAILY [facility] Last Admin: 07/19/18 09:10 Dose: 0.4 mg - Labs Labs: 07/19/18 06:30 07/19/18 06:30 PT 11.7 SECONDS (9.4-12.5) 07/19/18 06:30 INR 1.02 07/19/18 06:30 APTT 53.5 Seconds (25.1-36.5) H 07/19/18 06:30 Attending/Attestation - Attestation I have personally seen and examined this patient.: Yes I have fully participated in the care of the patient.: Yes I have reviewed all pertinent clinical information, including history, physical exam and plan: Yes Notes (Text): This is an addendum to GI followup report dictated by the Shower Screen Installer. The patient was seen and evaluated earlier. Medical records, lab studies, imagings were reviewed. Last 24 hours events reviewed. Agreed with the above treatment plan as outlined in Shower Screen Installer 's notes with the addition of the following Discussed with Dr. Coker Awaiting for hematology input - awaiting from patient's abstractor in [place] report to call back 07/19/18 22:57
[2018-07-20] MEDS: Sodium Chloride 0.9% 1,000 ML IV SCH (00:28)
[2018-07-20 00:50] VITALS: O2SAT 98
[2018-07-20] MEDS: Pantoprazole 40mg/100mL NS 40 MG/100 ML BAG IVPB SCH ×3 (06:15→15:12)
[2018-07-20 06:38] LABS: HEMOGLOBIN 8.1 g/dL (14.0-18.0); MEAN CELL VOLUME 105.8 fl (80.0-105.0); MEAN CORPUSCULAR HEMOGLOBIN 36.2 pg (25.0-35.0); MEAN CORPUSCULAR HGB CONC 34.2 g/dl (31.0-37.0); MEAN PLATELET VOLUME 9.6 fl (7.0-11.0); RBC 2.24 10^6/uL (3.5-6.1); RED CELL DISTRIBUTION WIDTH 14.5 % (11.5-14.5); WHITE BLOOD COUNT 5.9 10^3/ul (4.5-11.0)
[2018-07-20] MEDS ORDERED: ANTIHEMOPHILIC FACTOR IVP ONE (07:00)
[2018-07-20 08:04] LABS: INR 1.05; PROTHROMBIN TIME 12.1 SECONDS (9.4-12.5)
--- NOTE | 2018-07-20 09:52 | CP.PCM.DIS ---
Addendum entered and electronically signed by Nora Wills DO 07/20/18 21:56: Patient did not get EGD. Dr. Coker spoke with Dr. Moscoso. Patient will see Dr. Moscoso on Monday and get EGD as outpatient. He was given script for Protonix and Carafate. Original Note: <Nora Wills - Last Filed: 07/20/18 09:49> Provider - Provider Date of Admission: 07/17/18 17:17 Attending physician: Keanu Dewitt MD Consults: GI: Dr. Posey Heme: Dr. Coker Time Spent in preparation of Discharge (in minutes): 35 Hospital Course - Lab Results Lab Results: Most Recent Lab Values WBC 5.9 10^3/ul (4.5-11.0) D 07/20/18 05:30 RBC 2.24 10^6/uL (3.5-6.1) L 07/20/18 05:30 Hgb 8.1 g/dL (14.0-18.0) L 07/20/18 05:30 Hct 23.7 % (42.0-52.0) L 07/20/18 05:30 MCV 105.8 fl (80.0-105.0) H 07/20/18 05:30 MCH 36.2 pg (25.0-35.0) H 07/20/18 05:30 MCHC 34.2 g/dl (31.0-37.0) 07/20/18 05:30 RDW 14.5 % (11.5-14.5) 07/20/18 05:30 Plt Count 162 10^3/uL (120.0-450.0) 07/20/18 05:30 MPV 9.6 fl (7.0-11.0) 07/20/18 05:30 Gran % 72.8 % (50.0-68.0) H 07/18/18 06:00 Lymph % (Auto) 17.0 % (22.0-35.0) L 07/18/18 06:00 Concho % (Auto) 9.4 % (1.0-6.0) H 07/18/18 06:00 Eos % (Auto) 0.6 % (1.5-5.0) L 07/18/18 06:00 Baso % (Auto) 0.2 % (0.0-3.0) 07/18/18 06:00 Gran # 8.28 (1.4-6.5) H 07/18/18 06:00 Lymph # (Auto) 1.9 (1.2-3.4) 07/18/18 06:00 Concho # (Auto) 1.1 (0.1-0.6) H 07/18/18 06:00 Eos # (Auto) 0.1 (0.0-0.7) 07/18/18 06:00 Baso # (Auto) 0.02 K/mm3 (0.0-2.0) 07/18/18 06:00 Neutrophils % (Manual) 88 % (50.0-70.0) H 07/17/18 15:20 Lymphocytes % (Manual) 2 % (22.0-35.0) L 07/17/18 15:20 Monocytes % (Manual) 7 % (1.0-6.0) H 07/17/18 15:20 Metamyelocytes % 2 % 07/17/18 15:20 Myelocytes % 1 % 07/17/18 15:20 Platelet Evaluation Normal (NORMAL) 07/17/18 15:20 PT 12.1 SECONDS (9.4-12.5) 07/20/18 06:30 INR 1.05 07/20/18 06:30 APTT 57.0 Seconds (25.1-36.5) H 07/20/18 06:30 Sodium 135 mmol/L (132-148) 07/19/18 06:30 Potassium 3.6 mmol/L (3.6-5.0) 07/19/18 06:30 Chloride 108 mmol/L (98-107) H 07/19/18 06:30 Carbon Dioxide 25 mmol/L (21-33) 07/19/18 06:30 Anion Gap 7 (10-20) L 07/19/18 06:30 BUN 13 mg/dL (7-21) 07/19/18 06:30 Creatinine 0.8 mg/dl (0.8-1.5) 07/19/18 06:30 Est GFR ( Amer) > 60 07/19/18 06:30 Est GFR (Non-Af Amer) > 60 07/19/18 06:30 Random Glucose 82 mg/dL (70-110) 07/19/18 06:30 Calcium 7.8 mg/dL (8.4-10.5) L 07/19/18 06:30 Total Bilirubin 0.4 mg/dL (0.2-1.3) 07/19/18 06:30 AST 27 U/L (17-59) 07/19/18 06:30 ALT 48 U/L (7-56) 07/19/18 06:30 Alkaline Phosphatase 34 U/L (38-126) L 07/19/18 06:30 Troponin I < 0.01 ng/mL 07/17/18 15:20 Total Protein 4.6 g/dL (5.8-8.3) L 07/19/18 06:30 Albumin 2.5 g/dL (3.0-4.8) L 07/19/18 06:30 Globulin 2.2 gm/dL 07/19/18 06:30 Albumin/Globulin Ratio 1.2 (1.1-1.8) 07/19/18 06:30 Lipase 197 U/L (23-300) 07/17/18 15:20 Blood Type O POSITIVE 07/17/18 15:20 Antibody Screen Negative 07/17/18 15:20 BBK History Checked Patient has bt 07/17/18 15:20 - Hospital Course Hospital Course: This is a 77yo male with HTN, HLD, BPH, blind, severe acquired Hemophilia A, anemia of chronic disease who is admitted for GI bleed. He had one episode of coffee ground emesis and dark stool. Since then he has not had any further episodes. His hgb remained stable throughout stay. He was placed on protonix and IV fluids. He was evaluated by heme for his hemophilia A. He has a dance teacher, Dr. [facility]cos[facility] in [facility] who he follows up with regularly. Patient was seen by GI. He will get EGD today. If there are no acute findings, patient will be d/c home today pending GI recs. He will continue his home medications and follow up with Dr. Moscoso and PMD. I spoke with daughter and patient who verbalized and agreed with d/c plan. - Date & Time of H&P Date of H&P: 07/18/18 Time of H&P: 09:53 Discharge Exam - Head Exam Head Exam: ATRAUMATIC, NORMAL INSPECTION, NORMOCEPHALIC - ENT Exam ENT Exam: Mucous Membranes Moist - Respiratory Exam Respiratory Exam: Clear to PA & Lateral, NORMAL BREATHING PATTERN, UNREMARKABLE. absent: Rhonchi, Wheezes - Cardiovascular Exam Cardiovascular Exam: REGULAR RHYTHM, +S1, +S2. absent: Gallop, Rubs, Systolic Murmur - GI/Abdominal Exam GI & Abdominal Exam: Normal Bowel Sounds, Soft, Tenderness, Unremarkable (mild epigastric tenderness ). absent: Mass, Rigid - Extremities Exam Extremities exam: normal inspection Discharge Plan - Discharge Medications Prescriptions: Sucralfate [Carafate] 1 gm PO BID #60 tablet Pantoprazole Sodium [Protonix] 40 mg PO DAILY #30 ect - Follow Up Plan Condition: GUARDED Disposition: HOME/ ROUTINE Instructions: Hemophilia, Anemia of Chronic Disease, Heart Healthy Diet, Gastrointestinal Bleeding Additional Instructions: 1. Follow up with primary care physician within 1 week of discharge. Continue home medications as prescribed. 2. Take protonix 40mg PO daily and Carafate 1gm PO BID as prescribed. 3. Follow up with Dr. Lexx Moscoso at [facility] and schedule an appointment with him on monday as discussed with daughter by Dr. Coker. 4. Follow up with Dr. Posey (GI) as outpatient. 5. If symptoms occur again, go to the nearest emergency room. Referrals: Netta Posey MD [Medical Doctor] - <Keanu Dewitt - Last Filed: 07/20/18 19:25> Provider - Provider Date of Admission: 07/17/18 17:17 Attending physician: Keanu Dewitt MD Hospital Course - Lab Results Lab Results: Most Recent Lab Values WBC 5.9 10^3/ul (4.5-11.0) D 07/20/18 05:30 RBC 2.24 10^6/uL (3.5-6.1) L 07/20/18 05:30 Hgb 8.1 g/dL (14.0-18.0) L 07/20/18 05:30 Hct 23.7 % (42.0-52.0) L 07/20/18 05:30 MCV 105.8 fl (80.0-105.0) H 07/20/18 05:30 MCH 36.2 pg (25.0-35.0) H 07/20/18 05:30 MCHC 34.2 g/dl (31.0-37.0) 07/20/18 05:30 RDW 14.5 % (11.5-14.5) 07/20/18 05:30 Plt Count 162 10^3/uL (120.0-450.0) 07/20/18 05:30 MPV 9.6 fl (7.0-11.0) 07/20/18 05:30 Gran % 72.8 % (50.0-68.0) H 07/18/18 06:00 Lymph % (Auto) 17.0 % (22.0-35.0) L 07/18/18 06:00 Concho % (Auto) 9.4 % (1.0-6.0) H 07/18/18 06:00 Eos % (Auto) 0.6 % (1.5-5.0) L 07/18/18 06:00 Baso % (Auto) 0.2 % (0.0-3.0) 07/18/18 06:00 Gran # 8.28 (1.4-6.5) H 07/18/18 06:00 Lymph # (Auto) 1.9 (1.2-3.4) 07/18/18 06:00 Concho # (Auto) 1.1 (0.1-0.6) H 07/18/18 06:00 Eos # (Auto) 0.1 (0.0-0.7) 07/18/18 06:00 Baso # (Auto) 0.02 K/mm3 (0.0-2.0) 07/18/18 06:00 Neutrophils % (Manual) 88 % (50.0-70.0) H 07/17/18 15:20 Lymphocytes % (Manual) 2 % (22.0-35.0) L 07/17/18 15:20 Monocytes % (Manual) 7 % (1.0-6.0) H 07/17/18 15:20 Metamyelocytes % 2 % 07/17/18 15:20 Myelocytes % 1 % 07/17/18 15:20 Platelet Evaluation Normal (NORMAL) 07/17/18 15:20 PT 12.1 SECONDS (9.4-12.5) 07/20/18 06:30 INR 1.05 07/20/18 06:30 APTT 57.0 Seconds (25.1-36.5) H 07/20/18 06:30 Sodium 135 mmol/L (132-148) 07/19/18 06:30 Potassium 3.6 mmol/L (3.6-5.0) 07/19/18 06:30 Chloride 108 mmol/L (98-107) H 07/19/18 06:30 Carbon Dioxide 25 mmol/L (21-33) 07/19/18 06:30 Anion Gap 7 (10-20) L 07/19/18 06:30 BUN 13 mg/dL (7-21) 07/19/18 06:30 Creatinine 0.8 mg/dl (0.8-1.5) 07/19/18 06:30 Est GFR ( Amer) > 60 07/19/18 06:30 Est GFR (Non-Af Amer) > 60 07/19/18 06:30 Random Glucose 82 mg/dL (70-110) 07/19/18 06:30 Calcium 7.8 mg/dL (8.4-10.5) L 07/19/18 06:30 Total Bilirubin 0.4 mg/dL (0.2-1.3) 07/19/18 06:30 AST 27 U/L (17-59) 07/19/18 06:30 ALT 48 U/L (7-56) 07/19/18 06:30 Alkaline Phosphatase 34 U/L (38-126) L 07/19/18 06:30 Troponin I < 0.01 ng/mL 07/17/18 15:20 Total Protein 4.6 g/dL (5.8-8.3) L 07/19/18 06:30 Albumin 2.5 g/dL (3.0-4.8) L 07/19/18 06:30 Globulin 2.2 gm/dL 07/19/18 06:30 Albumin/Globulin Ratio 1.2 (1.1-1.8) 07/19/18 06:30 Lipase 197 U/L (23-300) 07/17/18 15:20 Blood Type O POSITIVE 07/17/18 15:20 Antibody Screen Negative 07/17/18 15:20 BBK History Checked Patient has bt 07/17/18 15:20 - Hospital Course Hospital Course: Pt seen and examined by me. I have reviewed the note by the medical sales representative. The case was discussed and reviewed with the resident. I reviewed the medications and labs. Pt with acquired Hemophilia A. Pt is comfortable. Hb is stable. No signs of bleeding.
--- NOTE | 2018-07-20 11:22 | CP.PCM.PN ---
Subjective - Date & Time of Evaluation Date of Evaluation: 07/20/18 Time of Evaluation: 07:45 - Subjective Subjective: Jose Alberto Parson PGY2 Heme/Onc Progress Note for Dr. Coker Patient was seen and examined at bedside. There were no overnight acute events. The patient is still scheduled for upper endoscopy in the afternoon today, however Dr. Coker continues to have discussions with Dr. Posey regarding the possibility of postponing the endoscopy since the patient is stable and we have not spoken to Dr. Moscoso who is managing the patient's hemophilia. The patient's daughter brought in records from his admission at [facility], and a copy of the records was placed in the chart to be scanned. Below is a summary of the record: The patient was admitted at [facility] from 05/28 to 06/07/[address] Moscoso was consulted. Etiology of the acquired hemophilia A was undetermined during hospitalization. Malignancy workup was as follows: CT C/A/P was unremarkable, CA 199, CEA and PSA all WNL, flow cytometry negative. The patient was transfused 5 units PRBCs, 1 unit FFP, 1 unit cryo, activated factor VIIa x2, factor VIII x 2. The patient was started on rituximab on 05/30 with second cycle 06/06. Factor VIII level was less than 1% at this time. The patient followed up with Dr. Moscoso as outpatient on 06/14, and factor VIII levels had not increased or responded to the rituximab, and inhibitory factors remained elevated. Third rituximab dose was given on 06/14 with dose for planned for 06/21. Prednisone was was also being given. The patient was admitted to [facility] medicine service from 06/20-06/26, and patient was noted to be taking the prednisone inconsistently. PTT on admission was 72.5 and INR 1.1. The patient received his fourth rituximab dose on 06/21 during this admission. The patient received Feiba (antifactor 8 inhibitor) for 4 days at 5000 q12 and PTT improved to 59.1 and factor VIII level showed slight response at 3%. Objective - Vital Signs/Intake and Output Vital Signs (last 24 hours): Temp Pulse Resp BP Pulse Ox 98.2 F 93 H 20 137/76 98 07/20/18 06:00 07/20/18 06:00 07/20/18 06:00 07/20/18 06:00 07/20/18 06:00 Intake and Output: 07/20/18 07/20/18 06:59 18:59 Intake Total 2375 Output Total 900 Balance 1475 - Medications Medications: Current Medications Atorvastatin Calcium (Lipitor) 20 mg PO HS [facility] Last Admin: 07/19/18 22:24 Dose: 20 mg Finasteride (Proscar) 5 mg PO DAILY [facility] Last Admin: 07/20/18 09:27 Dose: 5 mg Pantoprazole Sodium (Protonix 40mg Ivpb) 40 mg in 100 mls @ 20 mls/hr IVPB .Q5H [facility] Last Admin: 07/20/18 09:27 Dose: 20 mls/hr Sodium Chloride (Sodium Chloride 0.9%) 1,000 mls @ 75 mls/hr IV .[id number] [facility] Last Admin: 07/20/18 00:28 Dose: 75 mls/hr Tamsulosin HCl (Flomax) 0.4 mg PO DAILY [facility] Last Admin: 07/20/18 09:27 Dose: 0.4 mg - Labs Labs: 07/20/18 05:30 07/19/18 06:30 PT 12.1 SECONDS (9.4-12.5) 07/20/18 06:30 INR 1.05 07/20/18 06:30 APTT 57.0 Seconds (25.1-36.5) H 07/20/18 06:30 - Additional Findings Additional findings: - Constitutional Appears: Well, Non-toxic, No Acute Distress - Head Exam Head Exam: ATRAUMATIC, NORMAL INSPECTION - Eye Exam Additional comments: blind conjuctival pallor - ENT Exam ENT Exam: Mucous Membranes Moist - Neck Exam Neck exam: Positive for: Normal Inspection - Respiratory Exam Respiratory Exam: NORMAL BREATHING PATTERN. absent: Rales, Rhonchi, Wheezes - Cardiovascular Exam Cardiovascular Exam: RRR, +S1, +S2 - GI/Abdominal Exam GI & Abdominal Exam: Normal Bowel Sounds, Soft. absent: Distended, Tenderness Additional comments: mild resolving ecchymosios noted on r flank region - Extremities Exam Extremities exam: Positive for: full ROM, normal inspection. 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 Patient is at high risk for mucosal injury and bleeding, and if possible, endoscopy should be postponed. Plan: - We will continue to attempt to reach Dr. Moscoso to find out his recommendations - Records obtained showed that steroids and factor VII/VIII concentrate did not have good response on blood levels - Discuss with pharmacy regarding Feiba - Factor VIII level sent (lab states will be another 10 days to receive results due it being sent out) - Monitor for signs of new bleeding - Further recs per Dr. Coker Case was reviewed and discussed with attending, Dr. Sheela Parson PGY2
--- NOTE | 2018-07-20 11:28 | CON ---
DATE: 07/18/2018 HEMATOLOGY/ONCOLOGY CONSULTATION LOCATION: The patient is in room 260, bed 1. HISTORY OF PRESENT ILLNESS: I have spoken to the patient's daughter alicia after examining the patient, we got some information, which will be mentioned in this dictation. I have been asked to comment on this patient, who is admitted now with signs and symptoms of GI bleed in the background history of having acquired hemophilia A, for which he has been treated in the past, both at [facility] when he initially presented in 05/2018 and then more recently when the patient was in [place] in 06/2018. The patient is a 77-year-old male with hypertension, hyperlipidemia, BPH, he is legally blind, has severe acquired hemophilia A, anemia of chronic disease, who came to the emergency room with nausea and vomiting with coffee-ground emesis x1 day. The patient states that he was having abdominal pain in his epigastric area, but did not radiate. He vomited about three times that was dark in color as per his daughter. He also had an episode of dark tarry stools. The patient had mentioned as per the daughter that he had a recent colonoscopy at the [facility] by Dr. Cisneros, where he had undergone an upper endoscopy and a colonoscopy. Upper endoscopy had shown gastritis and evidence of H. pylori for which the patient was treated with three weeks of antibiotics consisting and including Flagyl into the regimen, which he completed recently. The patient also has a history of being in [place] in the week of 06/27/2018, where he had been treated both with prednisone and IV Rituxan for his acquired inhibitor, which was causing the hemophilia A. Prior to this, the patient had been admitted to [facility] in May. Review of the chart shows that the patient's factor VIII activity was less than 1% and patient at that time while in the process of workup before being transferred to [place] for hemophilia management, was diagnosed to have factor VIII activity, which was very low and was treated with both factor VIIA extract concentrate, and factor VIII supplementation as well before he was transferred. Since admission, the patient's abdominal pain appears to have stabilized, has had no further nausea and vomiting and has been stable. The patient had been already seen by GI earlier this morning and has been placed on appropriate medications. PAST SURGICAL HISTORY: There is no significant past surgical history. ALLERGIES: NO SIGNIFICANT ALLERGIES. SOCIAL HISTORY: The patient has no significant history of EtOH, tobacco, or drug abuse. He lives with his children and his daughter is the main power of employment law attorney at this time. FAMILY HISTORY: Significant for diabetes and heart problems without major significant bleeding issues in the remote past. REVIEW OF SYSTEMS: A 12 review of systems was reviewed and no additional findings or complaints were noted except what is mentioned in the HPI. PHYSICAL EXAMINATION: VITAL SIGNS: Stable. T-max is 98.4, pulse is 85, respirations 18, blood pressure is 90/49, pulse ox is 98%. GENERAL: The patient is examined in the bed. He is in no acute distress. HEENT: Head is normocephalic and atraumatic. Conjunctivae are pale. The patient is blind. Examination of oropharynx reveals no oropharyngeal lesions. No evidence of any petechiae or ecchymosis is noted on examination of the oropharynx. Ear, nose, and throat examination is unremarkable. LUNGS: Clear to percussion and auscultation. CARDIOVASCULAR SYSTEM: Reveals S1 and S2 to be normal. No gallop or murmur is heard. ABDOMEN: Soft and nontender. Bowel sounds are present. No rebound, rigidity, or guarding is noted. No other signs of abdominal masses or areas of tenderness are noted. EXTREMITIES: Revealed them to be within normal limits without any evidence of cyanosis, clubbing, or edema. The patient has no calf tenderness or pedal edema. Previously noted significant ecchymosis in the arm and the shoulders, appears to have improved. The patient still has complaints of shoulder pain specifically the left shoulder. The both shoulders have been hurting him. NEUROLOGIC: Reveals higher functions to be normal. No focal deficits are noted. The patient is able to answer all questions appropriately and is oriented x3. PSYCHIATRIC: The patient has normal affect and normal mood. SKIN: Reveals no significant petechiae, ecchymosis, or hematomas at this time. LABORATORY DATA: The patient's labs were reviewed. White count is 11.4, hemoglobin is 8.8, hematocrit 26, and platelet count of 172,000. Sodium is 137, K is 4.3, chloride is 106, CO2 is 26, BUN is 32, creatinine is 0.9, and blood sugar is 85. Coags were noted. PT is 11.9, INR is 1.03, APTT is 46.6. Chemistries reveals sodium of 135, K of 3.6, chloride 108, BUN is 13 with creatinine of 0.8. Total bilirubin is 0.4. AST and ALT are normal. Alkaline phosphatase is normal. Total protein is 4.5 with an albumin of 2.5. MEDICATIONS: The patient's medications were noted. The patient is on tamsulosin 0.4 daily, atorvastatin 20 mg p.o. at bedtime, Proscar 5 mg p.o. at bedtime. The patient is on pantoprazole 40 mg intravenously once a day. The patient is on IV fluid at 75 mL an hour. ASSESSMENT, NOTES AND PLAN: I had a detailed discussion with the patient's daughter on the phone. She gave me the name of the treating doctor at [place], Dr. Lexx Moscoso. I left a message for him to reach out to me. On talking with the patient and the daughter, it appears the patient did have immunosuppressive therapy. It is unclear at this time wether he got Cytoxan or Rituxan to minimize the inhibitors. It appears he did get factor VIII concentrate as well while he has been treated and he may have also been treated with prednisone as well. We tried to get all the detailed information in preparation for the patient to undergo an endoscopy at least for diagnostic purposes to do a diagnostic EGD in view of the fact that the patient had a recent episode of coffee-ground emesis as witnessed by the patient's family. I have spoken to Dr. Posey. We will wait for further input from the team from [place], so that we do not reduplicate the efforts and if need be we may give the patient immunosuppressive therapy again since the last treatment was in early June and then continue with factor VIII concentrate therapy along with it in preparation for whatever procedures may be needed. I feel it will be prudent to wait on doing anything and rushing into doing anything until we have active conversation with Dr Lexx Moscoso at [place]. The patient clinically appears to be stable at this time from a hemodynamic point of view and I think treating him conservatively will be most appropriate. We reached out to Dr. Keanu Dewitt and the patient's daughter has promised me to bring all the papers to me and we will discuss further about the management after I review all those papers. I would also find out from Dr. Moscoso as well, as to what the treatment plans were for the patient to facilitate the management here at [facility]. This was a conversation that lasted more than 80 minutes with me talking to the patient, the patient's family and trying to correlate all the information from the prior visit and also trying to lay the groundwork and talking to the physicians in [place]. Neli Coker MD MTDReyna
[2018-07-20 13:02] VITALS: TEMP 97.1
--- NOTE | 2018-07-20 18:21 | CP.PCM.PN ---
<Eduardo Iyerophe - Last Filed: 07/20/18 18:14> Subjective - Date & Time of Evaluation Date of Evaluation: 07/20/18 Time of Evaluation: 18:14 - Subjective Subjective: Nolan Iyer PGY IM Resident - GI service Patient seen and examined this AM. No acute events reported overnight. Patient re-evaluated this PM and reports of bloody bm occuring later in afternoon by nurse. Patient asymptomatic without tachycardia, dizzines, shortness of breath. Objective - Vital Signs/Intake and Output Vital Signs (last 24 hours): Temp Pulse Resp BP Pulse Ox 97.1 F L 84 20 125/68 98 07/20/18 12:00 07/20/18 12:00 07/20/18 12:00 07/20/18 12:00 07/20/18 06:00 Intake and Output: 07/20/18 07/20/18 06:59 18:59 Intake Total 2375 Output Total 900 Balance 1475 - Medications Medications: Current Medications Atorvastatin Calcium (Lipitor) 20 mg PO HS [facility] Last Admin: 07/19/18 22:24 Dose: 20 mg Finasteride (Proscar) 5 mg PO DAILY [facility] Last Admin: 07/20/18 09:27 Dose: 5 mg Pantoprazole Sodium (Protonix 40mg Ivpb) 40 mg in 100 mls @ 20 mls/hr IVPB .Q5H [facility] Last Admin: 07/20/18 15:12 Dose: 20 mls/hr Sodium Chloride (Sodium Chloride 0.9%) 1,000 mls @ 75 mls/hr IV .[id number] [facility] Last Admin: 07/20/18 00:28 Dose: 75 mls/hr Tamsulosin HCl (Flomax) 0.4 mg PO DAILY [facility] Last Admin: 07/20/18 09:27 Dose: 0.4 mg - Labs Labs: 07/20/18 05:30 07/19/18 06:30 PT 12.1 SECONDS (9.4-12.5) 07/20/18 06:30 INR 1.05 07/20/18 06:30 APTT 57.0 Seconds (25.1-36.5) H 07/20/18 06:30 - Head Exam Head Exam: ATRAUMATIC, NORMAL INSPECTION, NORMOCEPHALIC - Eye Exam Eye Exam: EOMI, PERRL - ENT Exam ENT Exam: Normal Exam - Respiratory Exam Respiratory Exam: Clear to Ausculation Bilateral, NORMAL BREATHING PATTERN - Cardiovascular Exam Cardiovascular Exam: REGULAR RHYTHM, +S1, +S2 - GI/Abdominal Exam GI & Abdominal Exam: Soft, Normal Bowel Sounds - Extremities Exam Extremities Exam: Full ROM - Neurological Exam Neurological Exam: Alert, Awake, Oriented x3 Neuro motor strength exam: Left Upper Extremity: 5, Right Upper Extremity: 5, Left Lower Extremity: 5, Right Lower Extremity: 5 - Psychiatric Exam Psychiatric exam: Normal Affect, Normal Mood - Skin Skin Exam: Dry, Intact Assessment and Plan - Assessment and Plan (Free Text) Assessment: 77 year old Male with a PMH of acquired hemophilia A, chronic anemia, severe chronic H.pylori gastritis, erosive esophagitis, hiatal hernia, esophageal candidiasis, diverticulosis, colonic polyps, internal hemorrhoids, HTN, HLD, BPH and 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 Plan: Hematemesis Hx of H. Pylori s/p triple therapy Hemophilia A severe acquired Bloody BM - Patient with reported of small amount of blood in afternoon BM - Patient currently stable, vital signs stable, no acute drop in H/H overnight - Discussed with Dr. Coker the case and updated him. Patient to see heme/onc physician outpatient upon discharge - Heme/Onc consulted for Hemophilia, follow up recs - Will follow up with GI records from Dr. Cisneros - Discussion with patient and family that any signs of blood per rectum that they should return to nearest emergency department for further evaluation <Netta Posey V - Last Filed: 07/21/18 23:23> Objective - Vital Signs/Intake and Output Vital Signs (last 24 hours): Temp Pulse Resp BP Pulse Ox 97.1 F L 104 H 19 124/66 98 07/20/18 18:00 07/20/18 18:00 07/20/18 18:00 07/20/18 18:00 07/20/18 06:00 - Labs Labs: 07/20/18 05:30 07/19/18 06:30 PT 12.1 SECONDS (9.4-12.5) 07/20/18 06:30 INR 1.05 07/20/18 06:30 APTT 57.0 Seconds (25.1-36.5) H 07/20/18 06:30 Attending/Attestation - Attestation I have personally seen and examined this patient.: Yes I have fully participated in the care of the patient.: Yes I have reviewed all pertinent clinical information, including history, physical exam and plan: Yes Notes (Text): This is an addendum to GI followup report dictated by the Hypo Dipper. The patient was seen and evaluated earlier. Medical records, lab studies, imagings were reviewed. Last 24 hours events reviewed. Agreed with the above treatment plan as outlined in Hypo Dipper 's notes with the addition of the following This patient has a complex hematological issue due to acquired hemophilia Factor 8 inhibitors The risk benefits and alternatives were discussed at length with pattern drum maker and the primary team The plan is to avoid endoscopy unless there is an active bleeding Patient's family was clearly told to come to the ER in any reoccurrence of GI bleeding Patient has an appointment to see the pattern drum maker at [facility] on Monday Advised to continue PPI and carafate 07/21/18 23:20
[2018-07-20 18:47] VITALS: BP 124/66; RESP 19
[2018-07-20 20:10] VITALS: PULSE 104
--- NOTE | 2018-07-21 04:02 | PN ---
DATE: 07/20/2018 HEMATOLOGY/ONCOLOGY PROGRESS NOTE LOCATION: Patient is in room 260, bed 2. Patient was examined. I spoke to the daughter in great detail, also reached out to Dr. Lexx Moscoso at [facility] and discussed with him in detail of the patient's current condition and plan for management. SUBJECTIVE: Patient reports no acute events over the night. Patient had some bloody bowel movements occurring later in the afternoon, but otherwise has been feeling well, has been taking liquids by mouth without any other significant abdominal complaint. No nausea or vomiting. No tachycardia, dizziness, or shortness of breath. PHYSICAL EXAMINATION: GENERAL: Patient is examined in bed. VITAL SIGNS: T-max is 98.4, pulse is 80, respirations 20, blood pressure is 125/68, pulse ox is 98% on room air. HEENT: Head is normocephalic, atraumatic. Conjunctivae pale. Sclerae is anicteric. Pupils are equally reactive to light and accommodation. Examination of the oropharynx reveals no petechiae, no new oropharyngeal lesions. NECK: Supple. There is no adenopathy. No jugular venous distention noted. CARDIOVASCULAR SYSTEM: Reveals S1 and S2 to be normal. No gallop or murmur is heard. ABDOMEN: Soft, nontender. No rebound, rigidity, or guarding is noted. Liver and spleen are not enlarged. EXTREMITIES: Examination of the extremities reveals upper and lower extremities to be within normal limits with full range of motion. Patient has resolving hematoma on the left chest wall, documented previously, but still complains of shoulder pain related to his hematoma. NEUROLOGIC: Higher functions are normal. No focal deficits are noted in the neurologic examination. PSYCHIATRIC: Patient has normal affect with normal mood. SKIN: Turgor is normal. No skin lesions are noted. LABORATORY DATA: Labs on today were reviewed. Today's lab data revealed the following: White count is 4.9, hemoglobin 8.1, hematocrit 23.7, platelet count is 162,000. Sodium is 135, K is 3.6, chloride is 108, CO2 is 25, BUN is 13, creatinine 0.8, blood sugar is 82. APTT is 57 seconds. ASSESSMENT, NOTES AND PLAN: A 77-year-old male with a history of acquired hemophilia; chronic anemia; severe Helicobacter pylori gastritis; erosive esophagitis; hiatal hernia; esophageal candidiasis; diverticulosis; colonic polyp, status post resection; internal hemorrhoids; hypertension; hyperlipidemia; benign prostatic hypertrophy and legally blind, who was admitted for an episode of hemoptysis/hematemesis and dark brown stool per rectum as per his daughter, who is now clinically stable at this time. On my conversation with Dr. Moscoso, it was detailed. Dr. Moscoso discussed with me after reviewing the patient's chart in [facility] that the patient had received 3 courses of Rituxan, was also placed on prednisone along with that; and despite getting those medicines along with FEIBA recombinant factor VIII concentrate that was given 4000 units subcutaneously every 12 hours. Patient had not responded to the treatment with the acquired inhibitor levels being very high and the factor VIII activity being at the most at 3%. The patient was being assessed for this fourth dose of Rituxan and probably initiation of therapy with intravenous Cytoxan in follow-up visits to [facility]. In the interim, patient has been admitted to [facility] and I had appraised the doctor of what had happened to him at the hospital. RECOMMENDATION: At this time, since the patient is hemodynamically stable without any acute bleeding at this time, we recommended that the patient be electively seen by Dr. Moscoso on Monday, which is about three days from today, where they would electively see him as an outpatient at [facility] and then depending on what they find on blood testing, they may decide to either admit him or treat him electively as an outpatient. Plan would be to do a diagnostic endoscopy under the window of getting active therapy both with immunosuppressive therapy along with FEIBA concentrates. I have ensured the patient and the patient's daughter that we will continue to monitor him once he is discharge from [facility] when he comes back locally to [facility] in [place]. I have discussed my findings in detail with the daughter and copies of the reports from [facility] will be given to the patient's family. In the meantime, if the patient should see more bleeding, we have advised them to return to the emergency room for further evaluation. The problematic situation that we have is that, our hospital being a [facility], we do not have access to the results of either factor VIII activity or the [place] titer for the acquired inhibitor, based on which we can continue therapy. At this point, if the patient is stable, rather than treating the patient blindly, it would be probably most appropriate that he be seen at [facility] in the nearest future, so that they can assess and treat the patient appropriately. I have spent considerable amount of time again discussing with Dr. Moscoso and patient's daughter, and they have been fully explained and appraised of what the problems are and what the expectation should be. Since the patient is hemodynamically stable, I do not see any need for transfusion at this time. This is a complex patient with multiple medical issues. Time spent with the patient is greater than 80 minutes including spending more than 50% of the time [id number] contact with the patient and the family. Neli Coker MD
== END 2018-07-20 23:00 | disposition home or self-care (01) | DRG 378 ==
LOC: ED 14:38 → ERH 17:17 → 2RNO 21:50
PROVIDERS: ADMIT Internal Medicine Nephrology; ATTEND Internal Medicine Nephrology
DX: K92.2 Gastrointestinal hemorrhage, unspecified (principal); D68.311 Acquired hemophilia; D63.8 Anemia in other chronic diseases classified elsewhere; N40.0 Benign prostatic hyperplasia without lower urinary tract symptoms; I10 Essential (primary) hypertension; K92.0 Hematemesis; H54.8 Legal blindness, as defined in USA; K29.50 Unspecified chronic gastritis without bleeding; B96.81 Helicobacter pylori [H. pylori] as the cause of diseases classified elsewhere; E78.5 Hyperlipidemia, unspecified; K44.9 Diaphragmatic hernia without obstruction or gangrene; E78.00 Pure hypercholesterolemia, unspecified; K64.8 Other hemorrhoids; Z86.010 Personal history of colon polyps

== ENCOUNTER 2018-09-09 15:21 | Inpatient (IN) | payer MEDICARE, OTHER ==
--- NOTE | 2018-09-09 17:04 | ED PDOC ---
Arrival/HPI - General Chief Complaint: GI Problem Time Seen by Provider: 09/09/18 15:42 Historian: Family (Patient's daughter provided information for HPI ) - History of Present Illness Narrative History of Present Illness (Text): 09/09/18 15:45 77 M with PMHx of hemophilia A brought into the Emergency department by daughter with cc of aching abdominal pain, nausea, diarrhea, and 2 episodes of black stool since Monday. Daughter reports associated weakness, dizziness, loss of appetite, and joints hurting. Daughter states Dr. Rider gave patient some medication for acid reflux, with no significant relief. Daughter denies any other complaints. Time/Duration: > week (Daughter reports ) Symptom Onset: Sudden Symptom Course: Unchanged Activities at Onset: Light Past Medical History - Provider Review Nursing Documentation Reviewed: Yes - Past History Past History: No Previous - Infectious Disease Hx of Infectious Diseases: None - Cardiac Hx Cardiac Disorders: Yes Hx Hypertension: Yes - Pulmonary Hx Respiratory Disorders: No - Neurological Hx Neurological Disorder: No - HEENT Hx HEENT Disorder: Yes Hx Blind: Yes (r eye blind/ 50% vision left eye) Hx Cataracts: Yes (sx b/l) - Renal Hx Kidney Stones: Yes (lithotripsy) - Endocrine/Metabolic Hx Endocrine Disorders: No - Hematological/Oncological Hx Blood Disorders: Yes Hx Anemia: Yes Hx Blood Transfusions: Yes Hx Blood Transfusion Reaction: Yes Hx Bruising: Yes Hx Hepatitis A: Yes (acquired) - Integumentary Hx Dermatological Disorder: Yes (hx lipoma) Hx Psoriasis: Yes - Musculoskeletal/Rheumatological Hx Musculoskeletal Disorders: Yes - Gastrointestinal Hx Gastrointestinal Disorders: Yes (colon polyps,HEMORRHOIDS ROMOVED WITH RUBBER BAND TECHNIQUE) - Genitourinary/Gynecological Hx Genitourinary Disorders: Yes Hx Prostate Problems: Yes (bph, elevated psa) - Psychiatric Hx Psychophysiologic Disorder: No Hx Substance Use: No - Surgical History Hx Coronary Stent: Yes - Anesthesia Hx Anesthesia: Yes Hx Anesthesia Reactions: No Hx Malignant Hyperthermia: No Family/Social History - Physician Review Nursing Documentation Reviewed: Yes Family/Social History: No Known Family HX Smoking Status: Never Smoked Hx Alcohol Use: No Hx Substance Use: No Hx Substance Use Treatment: No Allergies/Home Meds Allergies/Adverse Reactions: Allergies No Known Allergies Allergy (Verified 07/17/18 21:33) Home Medications: Home Meds Medication Instructions Recorded Confirmed Lisinopril [Prinivil] 5 mg PO DAILY 11/25/17 07/17/18 Simvastatin [Zocor] 40 mg PO HS 11/25/17 07/17/18 Tamsulosin [Flomax] 0.4 mg PO DAILY 11/25/17 07/17/18 Finasteride [Proscar] 5 mg PO DAILY 05/18/18 07/17/18 predniSONE [predniSONE Tab] 20 mg PO DAILY 07/17/18 07/17/18 Review of Systems - Physician Review All systems were reviewed & negative as marked: Yes (All other systems negative except that noted in the HPI.) Physical Exam - Physical Exam Narrative Physical Exam (Text): Gen: VS reviewed, alert, well developed, well nourished, nontoxic, mild distress Eye: EOMI, PERRL Neck: no JVD, supple, no adenopathy CV: regular rate, regular rhythm, no rubs,no murmur, S1, S2 Pulm: no distress, clear to auscultation, no wheeze, no rhonchi, breath sounds equal, no rales Abd: Diffuse abdominal tenderness, some guarding, no rebound, no rigidity. Ext: no edema Skin: good color, no rash, no cyanosis Psych: responds appropriately to questions, normal affect Neuro: oriented x3, CN2-12 intact grossly, motor intact, sensation intact Vital Signs Reviewed: Yes Vital Signs Temp Pulse Resp BP Pulse Ox 09/09/18 15:21 98.4 F 85 18 119/69 97 Temperature: Afebrile Blood Pressure: Normal Pulse: Regular Respiratory Rate: Normal Appearance: Positive for: Well-Appearing, Non-Toxic Pain Distress: Mild Mental Status: Positive for: Alert and Oriented X 3 Medical Decision Making ED Course and Treatment: 09/09/18 15:45 Impression: 77 M brought into the Emergency department by daughter with cc of aching abdominal pain, nausea, diarrhea, and 2 episodes of black stool since Mon. Differential Diagnosis included but are not limited to: Plan: -- Labs -- CT of abdomen and Pelvis, IV contrast only -- EKG -- CMP -- CBC (with differential) -- Protonix 40mg IVPB -- Protonix 80mg IVP -- IV fluids -- Reassess and disposition Prior Visits: Notes and results from previous visits were reviewed. Last on 07/17/18 for lightheadedness, sweats, nausea and vomiting with coffee ground emesis this morning. Patient was hospitalized with diagnosis for GI bleed. Progress Notes: 09/09/18 15:50 Rectal exam performed. There was no appreciable stool in rectal vault. Unable to test for hemocult. 09/09/18 18:[address] oliveros, covering for dr. rider. patient to be admitted for suspected gi bleed, patient empirically started on ppi drip. patient remained stable thoughout Emergency department course - RAD Interpretation Narrative RAD Interpretations (Text): 09/09/18 20:07 CLINICAL HISTORY: Pain. TECHNIQUE: Multiple axial, coronal, sagittal CT images were obtained through the abdomen and pelvis after administration of oral and intravenous contrast material. OMNI 350 100 ml. COMMENTS: The liver is of uniform attenuation without mass or defect. There is no intra or extrahepatic biliary ductal dilatation. The spleen is normal. The gallbladder is partially contracted. The pancreas is of normal contour and attenuation characteristics. There is no evidence of adrenal mass. Both kidneys demonstrate prompt and equal nephrograms. The kidneys are normal in size, shape and configuration. There is no evidence of renal or ureteral mass. No renal or ureteral calculi are identified. There is no hydroureter or hydronephrosis. Several bilateral renal cysts are present this includes a 2.5 cm cyst in the lower pole of the right kidney. No evidence for appendicitis. There is no bowel wall thickening. No evidence for small or large bowel obstruction. There is no evidence of abdominal ascites or lymphadenopathy. There is no evidence of intrinsic or extrinsic bladder mass. There is no pelvic ascites or lymphadenopathy. The prostate gland is moderately enlarged. Please correlated with PSA levels. There appears to be TURP defect. Images of the lung bases show no evidence of pleural or parenchymal mass. There are no pleural effusions. The bony structures are free of lytic or blastic lesions. Note is made of moderate to severe anterior wedging compression fracture deformity involving L2 vertebral body. Multilevel spondylosis present at all lumbar levels with multilevel foraminal and canal stenosis. IMPRESSION: 1. No evidence of acute abdominal or pelvic pathology. 2. Several bilateral renal cysts. 3. The prostate gland is moderately enlarged. Please correlated with PSA levels. There appears to be TURP defect. 4. Moderate to severe anterior wedging compression fracture deformity involving L2 vertebral body. 5. Multilevel spondylosis present at all lumbar levels with multilevel foraminal and canal stenosis. Electronically signed on Sep 09, 2018 8:02:55 PM EST by: Hemanth Cuellar M.D., [place] Certified By ABR & CBC[employer] Fellowship Trained MRI and CT Specialist Radiology Orders: 09/09/18 15:59 ABDOMEN & PELVIS [ABD & PELVIS IV CONTRAST ONLY] [CT] Stat Geriatric Nursing Assistant: Radiologist - EKG Interpretation EKG Interpretation (Text): 09/09/18 15:35 EKG: Ordered, reviewed, and independently interpreted the EKG. Rate: 89 BPM Rhythm: NSR Interpretation: Incomplete right bundle branch block. Normal axis. No acute st-t wave abnormality. Interpreted by ED Physician: Yes Type: 12 lead EKG - Medication Orders Current Medication Orders: Sodium Chloride (Sodium Chloride 0.9%) 1,000 mls @ 100 mls/hr IV .Q10H [facility] Pantoprazole Sodium (Protonix 40mg Ivpb) 40 mg in 100 mls @ 20 mls/hr IVPB .Q5H [facility] Discontinued Medications Pantoprazole Sodium (Protonix Inj) 80 mg IVP STAT STA Stop: 09/09/18 15:55 - Scribe Statement The provider has reviewed the documentation as recorded by the Scribe Lyndsey Hays All medical record entries made by the Scribe were at my direction and personally dictated by me. I have reviewed the chart and agree that the record accurately reflects my personal performance of the history, physical exam, medical decision making, and the department course for this patient. I have also personally directed, reviewed, and agree with the discharge instructions and d isposition. Disposition/Present on Arrival - Present on Arrival Any Indicators Present on Arrival: No History of DVT/PE: No History of Uncontrolled Diabetes: No Urinary Catheter: No History of Decub. Ulcer: No History Surgical Site Infection Following: None - Disposition Have Diagnosis and Disposition been Completed?: Yes Diagnosis: GI bleed, Acquired hemophilia A Disposition: HOSPITALIZED Disposition Time: 18:27 Patient Plan: Admission Patient Problems: Current Active Problems Problem Status Onset Acquired hemophilia A Acute GI bleed Acute Condition: STABLE
[2018-09-09] MEDS: Pantoprazole 40mg/100mL NS 40 MG/100 ML BAG IVPB SCH ×2 (17:22→21:41)
[2018-09-09] MEDS: Sodium Chloride 0.9% 1,000 ML IV SCH (17:24)
[2018-09-09 17:46] LABS: ALB/GLOB RATIO 1.2 (1.1-1.8); ALBUMIN 3.4 g/dL (3.0-4.8); ALT/SGPT 39 U/L (7-56); AST/SGOT 38 U/L (17-59); BLOOD UREA NITROGEN 6 mg/dL (7-21); CALCIUM 8.7 mg/dL (8.4-10.5); GFR NON-AFRICAN AMERICAN > 60
[2018-09-09 18:10] LABS: BASO # 0.04 K/mm3 (0.0-2.0); BASO % 0.4 % (0.0-3.0); EOS # 0.2 (0.0-0.7); EOS % 1.8 % (1.5-5.0); GRAN # 7.69 (1.4-6.5); GRAN % 70.7 % (50.0-68.0); LYMPH # 1.6 (1.2-3.4); LYMPH % 15.1 % (22.0-35.0); MEAN CELL VOLUME 94.3 fl (80.0-105.0); MEAN CORPUSCULAR HEMOGLOBIN 30.8 pg (25.0-35.0); MEAN CORPUSCULAR HGB CONC 32.7 g/dl (31.0-37.0); MEAN PLATELET VOLUME 9.8 fl (7.0-11.0); MONO # 1.3 (0.1-0.6); RBC 4.22 10^6/uL (3.5-6.1); RED CELL DISTRIBUTION WIDTH 14.2 % (11.5-14.5); WHITE BLOOD COUNT 10.9 10^3/uL (4.5-11.0)
[2018-09-09] MEDS ORDERED: Iohexol 350 MG/100 ML VIAL ONE (18:35)
[2018-09-09 21:07] VITALS: BMI 26.4
[2018-09-10] MEDS: Pantoprazole 40mg/100mL NS 40 MG/100 ML BAG IVPB SCH ×3 (02:04→11:32)
[2018-09-10] MEDS: Sodium Chloride 0.9% 1,000 ML IV SCH ×2 (02:07→10:26)
[2018-09-10 06:18] LABS: HEMOGLOBIN 12.3 g/dL (14.0-18.0); MEAN CELL VOLUME 93.3 fl (80.0-105.0); MEAN CORPUSCULAR HEMOGLOBIN 30.7 pg (25.0-35.0); MEAN CORPUSCULAR HGB CONC 32.9 g/dl (31.0-37.0); MEAN PLATELET VOLUME 9.7 fl (7.0-11.0); RBC 4.01 10^6/uL (3.5-6.1); RED CELL DISTRIBUTION WIDTH 14.2 % (11.5-14.5); WHITE BLOOD COUNT 10.1 10^3/uL (4.5-11.0)
[2018-09-10 06:26] LABS: INR 1.12; PARTIAL THROMBOPLASTIN TIME 42.6 Seconds (25.1-36.5); PROTHROMBIN TIME 12.9 SECONDS (9.4-12.5)
--- NOTE | 2018-09-10 06:57 | CP.PCM.CON ---
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 Hematology was consulted for management of hemophilia A. Patient states that the black stools were endorsed to him by his daughter. As per records the patient did not experience bright red blood per rectum but only dark stools. Admits to experiencing bowel movement this morning but is unsure of characteristics. Denies fever, chills, chest pain, shortness of breath, abdominal pain, nausea, vomiting, diarrhea, constipation, and urinary symptoms. Past medical history: HTN, HLD, BPH, blind, severe aqcuired Hemophilia A, anemia Past surgical history: Denies Home meds: Reviewed as per MAR Allergies: NKDA Social history: Denies Etoh, tobacco or drug use. Lives with children daughter (Neli Garsia) Family history: Both parents: DM and Heart problems PMD: Dr. Rider High Density Finishing Operator: Dr. Moscoso ([facility]) Physical Examination: - Head Exam Head Exam: ATRAUMATIC, NORMAL INSPECTION, NORMOCEPHALIC - Eye Exam Eye Exam: clinically blind - ENT Exam ENT Exam: Normal Exam - Respiratory Exam Respiratory Exam: Clear to Ausculation Bilateral, NORMAL BREATHING PATTERN - Cardiovascular Exam Cardiovascular Exam: REGULAR RHYTHM, +S1, +S2 - GI/Abdominal Exam GI & Abdominal Exam: Soft, Normal Bowel Sounds - Extremities Exam Extremities Exam: Full ROM - Neurological Exam Neurological Exam: Alert, Awake, Oriented x3 Neuro motor strength exam: Left Upper Extremity: 5, Right Upper Extremity: 5, Left Lower Extremity: 5, Right Lower Extremity: 5 - Psychiatric Exam Psychiatric exam: Normal Affect, Normal Mood - Skin Skin Exam: Dry, Intact Assessment and Plan: 77 year old Male with a PMH of acquired hemophilia A, chronic anemia, severe chronic H.pylori gastritis, erosive esophagitis, hiatal hernia, esophageal candidiasis, diverticulosis, colonic polyps, internal hemorrhoids, HTN, HLD, BPH and blindness (born w/ poor vision and developed vision loss progr essively) who was admitted for diarrhea. Hemophilia A - factor VIII and factor VIII inhibitor labs ordered and pending - start patient on solumedrol 40mg IV q6 - will speak to Dr. Moscoso from [facility] to retrieve further information Diarrhea - C. Diff, norovirus, cryptosporidium, and salmonella ordered and pending Patient case discussed with and plan approved by attending physician, Dr. Coker. Past Patient History - Infectious Disease Hx of Infectious Diseases: None - Past Medical History & Family History Past Medical History?: Yes - Past Social History Smoking Status: Never Smoked - CARDIAC Hx Cardiac Disorders: Yes Hx Hypertension: Yes - PULMONARY Hx Respiratory Disorders: No - NEUROLOGICAL Hx Neurological Disorder: No - HEENT Hx HEENT Problems: Yes Hx Blind: Yes (r eye blind/ 50% vision left eye) Hx Cataracts: Yes (sx b/l) - RENAL Hx Kidney Stones: Yes (lithotripsy) - ENDOCRINE/METABOLIC Hx Endocrine Disorders: No - HEMATOLOGICAL/ONCOLOGICAL Hx Blood Disorders: Yes Hx Anemia: Yes Hx Hepatitis A: Yes (acquired) - INTEGUMENTARY Hx Dermatological Problems: Yes (hx lipoma) Hx Psoriasis: Yes - MUSCULOSKELETAL/RHEUMATOLOGICAL Hx Falls: No - GASTROINTESTINAL Hx Gastrointestinal Disorders: Yes (colon polyps,HEMORRHOIDS ROMOVED WITH RUBBER BAND TECHNIQUE) - GENITOURINARY/GYNECOLOGICAL Hx Genitourinary Disorders: Yes Hx Prostate Problems: Yes (bph, elevated psa) - PSYCHIATRIC Hx Substance Use: No - SURGICAL HISTORY Hx Surgeries: Yes (LITHOTRIPSY,HEART STENTS) Hx Coronary Stent: Yes - ANESTHESIA Hx Anesthesia: Yes Hx Anesthesia Reactions: No Hx Malignant Hyperthermia: No Meds Allergies/Adverse Reactions: Allergies Allergy/AdvReac Type Severity Reaction Status Date / Time No Known Allergies Allergy Verified 07/17/18 21:33 - Medications Medications: Current Medications Atorvastatin Calcium (Lipitor) 20 mg PO HS VICKY Last Admin: 09/09/18 23:19 Dose: 20 mg Finasteride (Proscar) 5 mg PO DAILY VICKY Sodium Chloride (Sodium Chloride 0.9%) 1,000 mls @ 100 mls/hr IV .Q10H VICKY Last Admin: 09/10/18 02:07 Dose: 100 mls/hr Pantoprazole Sodium (Protonix 40mg Ivpb) 40 mg in 100 mls @ 20 mls/hr IVPB .Q5H VICKY Last Admin: 09/10/18 06:40 Dose: 20 mls/hr Lisinopril (Zestril) 5 mg PO DAILY VICKY Loperamide HCl (Imodium) 2 mg PO QID PRN PRN Reason: Diarrhea Sucralfate (Carafate Tab) 1 gm PO BID VICKY Tamsulosin HCl (Flomax) 0.4 mg PO DAILY [facility] Results - Vital Signs Recent Vital Signs: Last Vital Signs Temp 98.2 F 09/10/18 06:00 Pulse 780 H 09/10/18 06:00 Resp 98 H 09/10/18 06:00 BP 117/74 09/10/18 06:00 Pulse Ox 93 L 09/10/18 00:01 - Labs Result Diagrams: 09/10/18 05:20 09/10/18 05:20 Labs: Laboratory Results - last 24 hr 09/09/18 09/09/18 09/09/18 17:25 17:25 17:25 WBC 10.9 RBC 4.22 Hgb 13.0 L D Hct 39.8 L MCV 94.3 D MCH 30.8 MCHC 32.7 RDW 14.2 Plt Count 300 MPV 9.8 Gran % 70.7 H Lymph % (Auto) 15.1 L [place] % (Auto) 12.0 H Eos % (Auto) 1.8 Baso % (Auto) 0.4 Gran # 7.69 H Lymph # (Auto) 1.6 [place] # (Auto) 1.3 H Eos # (Auto) 0.2 Baso # (Auto) 0.04 PT INR APTT Sodium 138 Potassium 4.0 Chloride 105 Carbon Dioxide 26 Anion Gap 11 BUN 6 L Creatinine 0.8 Est GFR ( Amer) > 60 Est GFR (Non-Af Amer) > 60 Random Glucose 140 H Calcium 8.7 Total Bilirubin 0.2 AST 38 ALT 39 Alkaline Phosphatase 68 Total Protein 6.1 Albumin 3.4 Globulin 2.7 Albumin/Globulin Ratio 1.2 Blood Type O POSITIVE Antibody Screen Negative BBK History Checked Patient has bt 09/10/18 09/10/18 05:20 05:20 WBC 10.1 RBC 4.01 Hgb 12.3 L Hct 37.4 L MCV 93.3 MCH 30.7 MCHC 32.9 RDW 14.2 Plt Count 288 MPV 9.7 Gran % Lymph % (Auto) [place] % (Auto) Eos % (Auto) Baso % (Auto) Gran # Lymph # (Auto) [place] # (Auto) Eos # (Auto) Baso # (Auto) PT 12.9 H INR 1.12 APTT 42.6 H Sodium Potassium Chloride Carbon Dioxide Anion Gap BUN Creatinine Est GFR ( Amer) Est GFR (Non-Af Amer) Random Glucose Calcium Total Bilirubin AST ALT Alkaline Phosphatase Total Protein Albumin Globulin Albumin/Globulin Ratio Blood Type Antibody Screen BBK History Checked
[2018-09-10 08:34] LABS: ALB/GLOB RATIO 1.1 (1.1-1.8); ALBUMIN 2.6 g/dL (3.0-4.8); ALT/SGPT 38 U/L (7-56); AST/SGOT 31 U/L (17-59); BLOOD UREA NITROGEN 4 mg/dL (7-21); CALCIUM 8.4 mg/dL (8.4-10.5); GFR NON-AFRICAN AMERICAN > 60
--- NOTE | 2018-09-10 09:26 | CT ---
Date of service: 09/09/2018 PROCEDURE: CT Abdomen and Pelvis with contrast HISTORY: diffuse abdominal pain COMPARISON: None. TECHNIQUE: Contrast dose: 100 cc of Omni 350 Radiation dose: Total exam DLP = 373.42 mGy-cm. This CT exam was performed using one or more of the following dose reduction techniques: Automated exposure control, adjustment of the mA and/or kV according to patient size, and/or use of iterative reconstruction technique. FINDINGS: LOWER THORAX: Unremarkable. LIVER: Unremarkable. No gross lesion or ductal dilatation. GALLBLADDER AND BILE DUCTS: Unremarkable. PANCREAS: Unremarkable. No gross lesion or ductal dilatation. SPLEEN: Unremarkable. ADRENALS: Unremarkable. No mass. KIDNEYS AND URETERS: Unremarkable. No hydronephrosis. No solid mass. VASCULATURE: Unremarkable. No aortic aneurysm. Aortic calcification BOWEL: Unremarkable. No obstruction. No gross mural thickening. APPENDIX: Normal appendix. PERITONEUM: Unremarkable. No free fluid. No free air. LYMPH NODES: Unremarkable. No enlarged lymph nodes. BLADDER: Unremarkable. REPRODUCTIVE: The prostate is mildly enlarged measuring 45 mm transversely. BONES: Chronic compression deformity of L2 OTHER FINDINGS: The report concurs with the preliminary [facility] report IMPRESSION: No acute intra-abdominal findings
--- NOTE | 2018-09-10 10:53 | CP.PCM.HP ---
<Arun Murphy - Last Filed: 09/10/18 14:01> History of Present Illness - History of Present Illness History of Present Illness: H&P for Dr. Dewitt Service CC: abdominal pain, nausea, diarrhea, and x2 black stools This is a 77 yo M with severe acquired Hemophilia A, CAD s/p stents, HTN, pa rtial blindness (R eye blind, 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 As per charting, patient's daughter also reported symptoms of joint pains, loss of appetite, and generalized weakness. This AM, patient is resting comfortably in bed. Reports no diarrhea or any BM since yesterday evening, no further melanotic movements. Denies any emesis, chest pain, shortness of breath, fevers, or chills. Due to vision problems, unable to describe if any bright red blood per rectum, but as per daughter (Neli Garsia, spoke with on phone), no BRBPR. She reports that she and her sister both noted black stools after defecation (separately), which they were concerned for when the patient reports diarrhea symptoms to them, as this is how he has presented in the past. Denies any recent sick contacts. Patient reports last colonoscopy was in 2016 and was clear, but is unable to provide further information, and daughter reports no prior colonoscopies, only an EGD done here by Dr. Posey on 07/23/18. 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 Daughter also reports patient complaining of symptoms suggestive of acid reflex ("coughing up" acid, foul taste in mouth, worse at night), and minimal PO intake. Daughter reports patient did receive flu-shot this year at PMD's office (Dr. Rider), approximately 1-2 months prior. 12-system ROS reviewed and negative except as above. PMH: as above PSH: EGD, otherwise denies Soc Hx: Denies tobacco/alcohol/illicits/IVDA Fam Hx: DM2, CAD MEDS: Medications in MAR and Home meds in Reconciliation page reviewed PMD: Dr. Rider Health Data Administrator: Dr. Moscoso ([place]) Present on Admission - Present on Admission Any Indicators Present on Admission: No History of DVT/PE: No History of Uncontrolled Diabetes: No Review of Systems - Review of Systems All systems: reviewed and no additional remarkable complaints except (as per HPI) Past Patient History - Infectious Disease Hx of Infectious Diseases: None - Past Medical History & Family History Past Medical History?: Yes - Past Social History Smoking Status: Never Smoked - CARDIAC Hx Cardiac Disorders: Yes Hx Hypertension: Yes - PULMONARY Hx Respiratory Disorders: No - NEUROLOGICAL Hx Neurological Disorder: No - HEENT Hx HEENT Problems: Yes Hx Blind: Yes (r eye blind/ 50% vision left eye) Hx Cataracts: Yes (sx b/l) - RENAL Hx Kidney Stones: Yes (lithotripsy) - ENDOCRINE/METABOLIC Hx Endocrine Disorders: No - HEMATOLOGICAL/ONCOLOGICAL Hx Blood Disorders: Yes Hx Anemia: Yes Hx Hepatitis A: Yes (acquired) - INTEGUMENTARY Hx Dermatological Problems: Yes (hx lipoma) Hx Psoriasis: Yes - MUSCULOSKELETAL/RHEUMATOLOGICAL Hx Falls: No - GASTROINTESTINAL Hx Gastrointestinal Disorders: Yes (colon polyps,HEMORRHOIDS ROMOVED WITH RUBBER BAND TECHNIQUE) - GENITOURINARY/GYNECOLOGICAL Hx Genitourinary Disorders: Yes Hx Prostate Problems: Yes (bph, elevated psa) - PSYCHIATRIC Hx Substance Use: No - SURGICAL HISTORY Hx Surgeries: Yes (LITHOTRIPSY,HEART STENTS) Hx Coronary Stent: Yes - ANESTHESIA Hx Anesthesia: Yes Hx Anesthesia Reactions: No Hx Malignant Hyperthermia: No Meds Allergies/Adverse Reactions: Allergies Allergy/AdvReac Type Severity Reaction Status Date / Time No Known Allergies Allergy Verified 07/17/18 21:33 Physical Exam - Constitutional Appears: Non-toxic, No Acute Distress - Head Exam Head Exam: ATRAUMATIC, NORMAL INSPECTION, NORMOCEPHALIC - Eye Exam Eye Exam: absent: Conjunctival injection, Normal appearance (right eye lateral drift as compared to left), Scleral icterus Additional comments: Right eye blindness and left eye reduced vision - ENT Exam ENT Exam: Mucous Membranes Dry - Neck Exam Neck exam: Positive for: Normal Inspection - Respiratory Exam Respiratory Exam: Clear to Auscultation Bilateral, NORMAL BREATHING PATTERN. absent: Accessory Muscle Use, Chest Wall Tenderness, Decreased Breath Sounds, Rales, Rhonchi, Wheezes - Cardiovascular Exam Cardiovascular Exam: REGULAR RHYTHM, RRR, +S1, +S2. absent: Bradycardia, Tachycardia, Irregular Rhythm, JVD - GI/Abdominal Exam GI & Abdominal Exam: Normal Bowel Sounds, Soft, Tenderness (mild abdominal discomfort with palpation diffusely). absent: Diminished Bowel Sounds, Distended, Firm, Hyperactive Bowel Sounds, Hypoactive Bowel Sounds, Rigid - Extremities Exam Extremities exam: Positive for: normal inspection, pedal pulses present (+2 radials, +1 dorsalis pedis bilaterally). Negative for: calf tenderness, joint swelling, pedal edema, tenderness - Back Exam Back exam: absent: CVA tenderness (L), CVA tenderness (R) - Neurological Exam Additional comments: awake and and alert, moving all extremities spontaneously, following commands appropriately, limited by poor L eyesight/R blindness but able to follow verbal prompts adequately - Psychiatric Exam Psychiatric exam: Normal Affect, Normal Mood - Skin Skin Exam: Dry, Intact, Normal Color, Warm Results - Vital Signs Recent Vital Signs: Last Vital Signs Temp 98.2 F 09/10/18 06:00 Pulse 780 H 09/10/18 06:00 Resp 98 H 09/10/18 06:00 BP 117/74 09/10/18 06:00 Pulse Ox 93 L 09/10/18 00:01 - Labs Result Diagrams: 09/10/18 05:20 09/10/18 05:20 Labs: Laboratory Results - last 24 hr 09/09/18 09/09/18 09/09/18 17:25 17:25 17:25 WBC 10.9 RBC 4.22 Hgb 13.0 L D Hct 39.8 L MCV 94.3 D MCH 30.8 MCHC 32.7 RDW 14.2 Plt Count 300 MPV 9.8 Gran % 70.7 H Lymph % (Auto) 15.1 L [place] % (Auto) 12.0 H Eos % (Auto) 1.8 Baso % (Auto) 0.4 Gran # 7.69 H Lymph # (Auto) 1.6 [place] # (Auto) 1.3 H Eos # (Auto) 0.2 Baso # (Auto) 0.04 PT INR APTT Sodium 138 Potassium 4.0 Chloride 105 Carbon Dioxide 26 Anion Gap 11 BUN 6 L Creatinine 0.8 Est GFR ( Amer) > 60 Est GFR (Non-Af Amer) > 60 Random Glucose 140 H Calcium 8.7 Total Bilirubin 0.2 AST 38 ALT 39 Alkaline Phosphatase 68 Total Protein 6.1 Albumin 3.4 Globulin 2.7 Albumin/Globulin Ratio 1.2 Blood Type O POSITIVE Antibody Screen Negative BBK History Checked Patient has bt 09/10/18 09/10/18 09/10/18 05:20 05:20 05:20 WBC 10.1 RBC 4.01 Hgb 12.3 L Hct 37.4 L MCV 93.3 MCH 30.7 MCHC 32.9 RDW 14.2 Plt Count 288 MPV 9.7 Gran % Lymph % (Auto) [place] % (Auto) Eos % (Auto) Baso % (Auto) Gran # Lymph # (Auto) [place] # (Auto) Eos # (Auto) Baso # (Auto) PT 12.9 H INR 1.12 APTT 42.6 H Sodium 137 Potassium 4.1 Chloride 109 H Carbon Dioxide 24 Anion Gap 8 L BUN 4 L Creatinine 0.9 Est GFR ( Amer) > 60 Est GFR (Non-Af Amer) > 60 Random Glucose 87 Calcium 8.4 Total Bilirubin 0.3 AST 31 ALT 38 Alkaline Phosphatase 61 Total Protein 5.0 L Albumin 2.6 L Globulin 2.4 Albumin/Globulin Ratio 1.1 Blood Type Antibody Screen BBK History Checked Assessment & Plan - Assessment and Plan (Free Text) Assessment: This is a 77 yo M with Hemophilia A, CAD s/p stents, HTN, partial blindness (R eye blind, 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 He was admitted for suspected lower GI bleed with hx of severe acquired Hemophilia A. Plan: 1) Suspected lower GI bleed with hx severe acquired Hemophilia A -ddx: upper GI bleed vs occult lower GI bleed vs hemorrhoids vs dark stools 2/2 medications -2x reported black stools as per daughters, none witnessed at [facility] and occult negative in ED -CT abd/pelvis with contrast obtained on arrival, notable for BPH but negative for acute intra-abdominal process -Not on iron supplementation, denies routine use of pepto-bismol -Hgb 12.3, was 13 on arrival, baseline per prior charting is 8-9 Likely some component of hemoconcentration 2/2 poor PO intake No signs of acute bleeding, hypotension, tachycardia Normal range BUN, so less likely active GI bleed -GI consulted, appreciate their recs; no signs of current bleeding, no plan for colonoscopy, Protonix downgraded from drip to daily dose, advance diet as tolerated -Zofran prn for nausea/emesis -Afebrile, no leukocytosis, no indication for abx at this time 2) Severe acquired Hemophilia A -as per prior charting, acquired and treated with unknown immunosuppresive agent to suppress inhibitor -Prior labwork notable for low Factor VIII activity -Reported black stools prior to arrival, none documented since -Heme consulted for hx Hemophilia A, appreciate their recs 3) HTN -well controlled on current regimen, continue home Lisinopril 4) Hx CAD s/p stenting -no ASA due to hx Hemophilia A -continue home lisinopril and lipitor 5) BPH -continue home flomax and proscar Dispo: Telemetry, pending Heme-onc recs, advancing diet as per GI FEN: Liquid diet as per GI, NS 50cc/hr Access: Peripheral IVs Consults: GI, Heme-onc Ppx: Protonix covers for GI, SCDs for DVT (AC contraindicated with hx Hemophilia A) Patient reviewed and discussed with attending, Dr. Dewitt <Keanu Dewitt S - Last Filed: 09/10/18 21:33> Results - Vital Signs Recent Vital Signs: Last Vital Signs Temp 98.1 F 09/10/18 18:00 Pulse 78 09/10/18 18:00 Resp 20 09/10/18 18:00 BP 139/71 09/10/18 18:00 Pulse Ox 93 L 09/10/18 00:01 - Labs Result Diagrams: 09/10/18 05:20 09/10/18 05:20 Labs: Laboratory Results - last 24 hr 09/10/18 09/10/18 09/10/18 05:20 05:20 05:20 WBC 10.1 RBC 4.01 Hgb 12.3 L Hct 37.4 L MCV 93.3 MCH 30.7 MCHC 32.9 RDW 14.2 Plt Count 288 MPV 9.7 PT 12.9 H INR 1.12 APTT 42.6 H Sodium 137 Potassium 4.1 Chloride 109 H Carbon Dioxide 24 Anion Gap 8 L BUN 4 L Creatinine 0.9 Est GFR ( Amer) > 60 Est GFR (Non-Af Amer) > 60 POC Glucose (mg/dL) Random Glucose 87 Calcium 8.4 Total Bilirubin 0.3 AST 31 ALT 38 Alkaline Phosphatase 61 Total Protein 5.0 L Albumin 2.6 L Globulin 2.4 Albumin/Globulin Ratio 1.1 09/10/18 09/10/18 11:03 16:40 WBC RBC Hgb Hct MCV MCH MCHC RDW Plt Count MPV PT INR APTT Sodium Potassium Chloride Carbon Dioxide Anion Gap BUN Creatinine Est GFR ( Amer) Est GFR (Non-Af Amer) POC Glucose (mg/dL) 113 H 70 Random Glucose Calcium Total Bilirubin AST ALT Alkaline Phosphatase Total Protein Albumin Globulin Albumin/Globulin Ratio Assessment & Plan - Assessment and Plan (Free Text) Plan: Pt seen and examined. I have reviewed the note of the medical coding manager and agree with it. I have discussed the assessment and plan with the resident. I have reviewed the patient's labs and medications. Pt with GI bleed. He will need further evaluation and Heme input. Hb being followed. Pt has low Factor VIII. BPH will be treated with Flomax. Hold ASA due to bleeding. HTN controlled with Lisinopril.
--- NOTE | 2018-09-10 11:11 | CARD ---
APPROVED REPORT Date of service: 09/09/2018 EKG Measurement Heart [id number] <Conclusion> Normal sinus rhythm Incomplete right bundle branch block Otherwise normal ECG
[2018-09-10] MEDS: Insulin Reg-LOW-Coverage SC SCH ×3 (11:24→22:12)
--- NOTE | 2018-09-10 12:05 | CP.PCM.CON ---
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 Moscoso, [facility]), congenital Blindness, and BPH presenting with dark stools. Patient states three formed stools daily with daughter noting black stools yesterday leading to ER presentation as patient did not notice due to blindness. Denies shortness of breath, chest pain, weakness, abdominal pain, nausea, vomiting, hematemesis, diarrhea, hematochezia, or unintentional weight loss. Discussed patient with covering Rod Buster Helper (Dr. Cesilia Suarez-[facility])- Prior EGD 08/03/18 EGD showed normal esophagus/duodenum, and gastritis. Prior colonoscopy two years ago endorsed to show polyps and large hemorrhoids status post hemorrhoidectomy. Family History- denies stomach cancer, colon cancer Social History- denies tobacco,alcohol, illicit drug use Surgical History- hemorrhoidectomy Review of Systems - Review of Systems Review of Systems: 12-point review of systems negative except for as above Past Patient History - Infectious Disease Hx of Infectious Diseases: None - Past Medical History & Family History Past Medical History?: Yes - Past Social History Smoking Status: Never Smoked - CARDIAC Hx Cardiac Disorders: Yes Hx Hypertension: Yes - PULMONARY Hx Respiratory Disorders: No - NEUROLOGICAL Hx Neurological Disorder: No - HEENT Hx HEENT Problems: Yes Hx Blind: Yes (r eye blind/ 50% vision left eye) Hx Cataracts: Yes (sx b/l) - RENAL Hx Kidney Stones: Yes (lithotripsy) - ENDOCRINE/METABOLIC Hx Endocrine Disorders: No - HEMATOLOGICAL/ONCOLOGICAL Hx Blood Disorders: Yes Hx Anemia: Yes Hx Hepatitis A: Yes (acquired) - INTEGUMENTARY Hx Dermatological Problems: Yes (hx lipoma) Hx Psoriasis: Yes - MUSCULOSKELETAL/RHEUMATOLOGICAL Hx Falls: No - GASTROINTESTINAL Hx Gastrointestinal Disorders: Yes (colon polyps,HEMORRHOIDS ROMOVED WITH RUBBER BAND TECHNIQUE) - GENITOURINARY/GYNECOLOGICAL Hx Genitourinary Disorders: Yes Hx Prostate Problems: Yes (bph, elevated psa) - PSYCHIATRIC Hx Substance Use: No - SURGICAL HISTORY Hx Surgeries: Yes (LITHOTRIPSY,HEART STENTS) Hx Coronary Stent: Yes - ANESTHESIA Hx Anesthesia: Yes Hx Anesthesia Reactions: No Hx Malignant Hyperthermia: No Meds Allergies/Adverse Reactions: Allergies Allergy/AdvReac Type Severity Reaction Status Date / Time No Known Allergies Allergy Verified 07/17/18 21:33 - Medications Medications: Current Medications Atorvastatin Calcium (Lipitor) 20 mg PO HS [facility] Last Admin: 09/09/18 23:19 Dose: 20 mg Finasteride (Proscar) 5 mg PO DAILY [facility] Last Admin: 09/10/18 10:25 Dose: 5 mg Sodium Chloride (Sodium Chloride 0.9%) 1,000 mls @ 50 mls/hr IV .Q20H [facility] Last Admin: 09/10/18 10:26 Dose: 50 mls/hr Insulin Human Regular (Humulin R Low) 0 units SC [facility]; Protocol Last Admin: 09/10/18 11:24 Dose: Not Given Lisinopril (Zestril) 5 mg PO DAILY [facility] Last Admin: 09/10/18 10:26 Dose: 5 mg Loperamide HCl (Imodium) 2 mg PO QID PRN PRN Reason: Diarrhea Pantoprazole Sodium (Protonix Ec Tab) 40 mg PO 0600 [facility] Sucralfate (Carafate Tab) 1 gm PO BID [facility] Last Admin: 09/10/18 10:25 Dose: 1 gm Tamsulosin HCl (Flomax) 0.4 mg PO DAILY [facility] Last Admin: 09/10/18 10:25 Dose: 0.4 mg Physical Exam - Constitutional Appears: Non-toxic, No Acute Distress - Head Exam Head Exam: ATRAUMATIC, NORMOCEPHALIC - Eye Exam Eye Exam: EOMI, PERRL. absent: Scleral icterus Pupil Exam: PERRL. absent: Miosis, Mydriatic - ENT Exam ENT Exam: Mucous Membranes Moist, Normal Oropharynx - Neck Exam Neck exam: Positive for: Full Rom, Normal Inspection - Respiratory Exam Respiratory Exam: Clear to Auscultation Bilateral. absent: Rales, Rhonchi, W heezes - Cardiovascular Exam Cardiovascular Exam: RRR, +S1, +S2. absent: Gallop, Rubs - GI/Abdominal Exam GI & Abdominal Exam: Normal Bowel Sounds, Soft. absent: Distended, Firm, Guarding, Organomegaly, Rebound, Rigid, Tenderness - Rectal Exam Additional comments: light brown mucoid stool, good tone, no mass - Extremities Exam Extremities exam: Positive for: normal inspection. Negative for: pedal edema - Neurological Exam Neurological exam: Alert - Psychiatric Exam Psychiatric exam: Normal Affect, Normal Mood - Skin Skin Exam: Dry, Intact, Normal Color, Warm Results - Vital Signs Recent Vital Signs: Last Vital Signs Temp 98.2 F 09/10/18 06:00 Pulse 71 09/10/18 10:58 Resp 98 H 09/10/18 06:00 BP 117/74 09/10/18 06:00 Pulse Ox 93 L 09/10/18 00:01 - Labs Result Diagrams: 09/10/18 05:20 09/10/18 05:20 Labs: Laboratory Results - last 24 hr 09/09/18 09/09/18 09/09/18 17:25 17:25 17:25 WBC 10.9 RBC 4.22 Hgb 13.0 L D Hct 39.8 L MCV 94.3 D MCH 30.8 MCHC 32.7 RDW 14.2 Plt Count 300 MPV 9.8 Gran % 70.7 H Lymph % (Auto) 15.1 L [place] % (Auto) 12.0 H Eos % (Auto) 1.8 Baso % (Auto) 0.4 Gran # 7.69 H Lymph # (Auto) 1.6 [place] # (Auto) 1.3 H Eos # (Auto) 0.2 Baso # (Auto) 0.04 PT INR APTT Sodium 138 Potassium 4.0 Chloride 105 Carbon Dioxide 26 Anion Gap 11 BUN 6 L Creatinine 0.8 Est GFR ( Amer) > 60 Est GFR (Non-Af Amer) > 60 POC Glucose (mg/dL) Random Glucose 140 H Calcium 8.7 Total Bilirubin 0.2 AST 38 ALT 39 Alkaline Phosphatase 68 Total Protein 6.1 Albumin 3.4 Globulin 2.7 Albumin/Globulin Ratio 1.2 Blood Type O POSITIVE Antibody Screen Negative BBK History Checked Patient has bt 09/10/18 09/10/18 09/10/18 05:20 05:20 05:20 WBC 10.1 RBC 4.01 Hgb 12.3 L Hct 37.4 L MCV 93.3 MCH 30.7 MCHC 32.9 RDW 14.2 Plt Count 288 MPV 9.7 Gran % Lymph % (Auto) [place] % (Auto) Eos % (Auto) Baso % (Auto) Gran # Lymph # (Auto) [place] # (Auto) Eos # (Auto) Baso # (Auto) PT 12.9 H INR 1.12 APTT 42.6 H Sodium 137 Potassium 4.1 Chloride 109 H Carbon Dioxide 24 Anion Gap 8 L BUN 4 L Creatinine 0.9 Est GFR ( Amer) > 60 Est GFR (Non-Af Amer) > 60 POC Glucose (mg/dL) Random Glucose 87 Calcium 8.4 Total Bilirubin 0.3 AST 31 ALT 38 Alkaline Phosphatase 61 Total Protein 5.0 L Albumin 2.6 L Globulin 2.4 Albumin/Globulin Ratio 1.1 Blood Type Antibody Screen BBK History Checked 09/10/18 11:03 WBC RBC Hgb Hct MCV MCH MCHC RDW Plt Count MPV Gran % Lymph % (Auto) [place] % (Auto) Eos % (Auto) Baso % (Auto) Gran # Lymph # (Auto) [place] # (Auto) Eos # (Auto) Baso # (Auto) PT INR APTT Sodium Potassium Chloride Carbon Dioxide Anion Gap BUN Creatinine Est GFR ( Amer) Est GFR (Non-Af Amer) POC Glucose (mg/dL) 113 H Random Glucose Calcium Total Bilirubin AST ALT Alkaline Phosphatase Total Protein Albumin Globulin Albumin/Globulin Ratio Blood Type Antibody Screen BBK History Checked Assessment & Plan - Assessment and Plan (Free Text) Assessment: 77 year old male with 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 Moscoso, [facility]), congenital Blindness, and BPH presenting with dark stools. Active treatment of chronic anemia without signs of active GI bleed. Prior EGD 08/03/2018 EGD showed normal esophagus/duodenum, and gastritis. Prior colonoscopy two years ago endorsed to show polyps and large hemorrhoids status post hemorrhoidectomy. Plan: -no overt signs of GI bleed -H/H baseline -BUN and INR normal -hemodynamically stable -stop Protonix drip -start PPI ACB -on clear liquids, full liquid diet for lunch -discussed patient with covering Rod Buster Helper, Dr. Cesilia Suarez at [facility] -Dr. Suarez agrees with no endoscopic indication at present clinical evaluation -outpatient follow up on discharge to [facility] -will follow clinical course <Netta Posey V - Last Filed: 09/12/18 00:04> Results - Vital Signs Recent Vital Signs: Last Vital Signs Temp 98.1 F 09/11/18 12:00 Pulse 87 09/11/18 12:00 Resp 20 09/11/18 12:00 BP 116/67 09/11/18 12:00 Pulse Ox 96 09/11/18 09:00 - Labs Result Diagrams: 09/11/18 07:30 09/11/18 07:30 Labs: Laboratory Results - last 24 hr 09/11/18 09/11/18 09/11/18 07:18 07:30 07:30 WBC 13.0 H D RBC 4.46 Hgb 13.9 L Hct 41.3 L MCV 92.6 MCH 31.2 MCHC 33.7 RDW 14.0 Plt Count 297 MPV 9.7 Gran % 93.4 H Lymph % (Auto) 5.9 L [place] % (Auto) 0.7 L Eos % (Auto) 0.0 L Baso % (Auto) 0.0 Gran # 12.13 H Lymph # (Auto) 0.8 L [place] # (Auto) 0.1 Eos # (Auto) 0.0 Baso # (Auto) 0.00 Neutrophils % (Manual) 86 H Band Neutrophils % 4 H Lymphocytes % (Manual) 9 L Monocytes % (Manual) 1 Platelet Evaluation Normal Sodium 138 Potassium 4.6 Chloride 107 Carbon Dioxide 26 Anion Gap 10 BUN 6 L Creatinine 0.9 Est GFR ( Amer) > 60 Est GFR (Non-Af Amer) > 60 POC Glucose (mg/dL) 148 H Random Glucose 163 H Calcium 8.7 Total Bilirubin 0.4 AST 40 ALT 34 Alkaline Phosphatase 67 Total Protein 6.4 Albumin 3.5 Globulin 2.9 Albumin/Globulin Ratio 1.2 09/11/18 11:19 WBC RBC Hgb Hct MCV MCH MCHC RDW Plt Count MPV Gran % Lymph % (Auto) [place] % (Auto) Eos % (Auto) Baso % (Auto) Gran # Lymph # (Auto) [place] # (Auto) Eos # (Auto) Baso # (Auto) Neutrophils % (Manual) Band Neutrophils % Lymphocytes % (Manual) Monocytes % (Manual) Platelet Evaluation Sodium Potassium Chloride Carbon Dioxide Anion Gap BUN Creatinine Est GFR ( Amer) Est GFR (Non-Af Amer) POC Glucose (mg/dL) 231 H Random Glucose Calcium Total Bilirubin AST ALT Alkaline Phosphatase Total Protein Albumin Globulin Albumin/Globulin Ratio Attending/Attestation - Attestation I have personally seen and examined this patient.: Yes I have fully participated in the care of the patient.: Yes I have reviewed all pertinent clinical information: Yes Notes (Text): This is an addendum to GI progress report dictated by the GI Fellow.The patient was seen and examined earlier. Medical records, lab studies, imagings were reviewed. Last 24 hours events reviewed. Agreed with the above treatment plan as outlined in GI Fellow 's notes with the addition of the following 09/12/18 00:04
[2018-09-10] MEDS: Pantoprazole 40 mg EC Tab PO SCH (12:43)
[2018-09-10] MEDS: MethylPREDNISolone 40 mg Vial IVP SCH ×2 (17:57→21:58)
[2018-09-11] MEDS: MethylPREDNISolone 40 mg Vial IVP SCH ×2 (03:42→08:32)
[2018-09-11] MEDS: Sodium Chloride 0.9% 1,000 ML IV SCH ×2 (03:43→05:55)
[2018-09-11] MEDS: Pantoprazole 40 mg EC Tab PO SCH (05:54)
[2018-09-11 06:48] VITALS: TEMP 98.1; O2SAT 96
--- NOTE | 2018-09-11 06:54 | CP.PCM.PN ---
Subjective - Date & Time of Evaluation Date of Evaluation: 09/11/18 Time of Evaluation: 08:15 - Subjective Subjective: Yuan Pope-Internal Medicine Resident- Hematology Oncology Progress Note Subjective: Patient seen and examined at bedside. No acute events overnight. States diarrhea has resolved. Offers no new complaints at this time. Denies fever, chills, chest pain, nausea/vomiting. 12 Point ROS negative except as indicated in HPI Physical Examination: - Head Exam Head Exam: ATRAUMATIC, NORMAL INSPECTION, NORMOCEPHALIC - Eye Exam Eye Exam: clinically blind - ENT Exam ENT Exam: Normal Exam - Respiratory Exam Respiratory Exam: Clear to Ausculation Bilateral, NORMAL BREATHING PATTERN - Cardiovascular Exam Cardiovascular Exam: REGULAR RHYTHM, +S1, +S2 - GI/Abdominal Exam GI & Abdominal Exam: Soft, Normal Bowel Sounds - Extremities Exam Extremities Exam: Full ROM - Neurological Exam Neurological Exam: Alert, Awake, Oriented x3 Neuro motor strength exam: Left Upper Extremity: 5, Right Upper Extremity: 5, Left Lower Extremity: 5, Right Lower Extremity: 5 - Psychiatric Exam Psychiatric exam: Normal Affect, Normal Mood - Skin Skin Exam: Dry, Intact Assessment and Plan: 77 year old Male with a PMH of acquired hemophilia A, chronic anemia, severe chronic H.pylori gastritis, erosive esophagitis, hiatal hernia, esophageal candidiasis, diverticulosis, colonic polyps, internal hemorrhoids, HTN, HLD, BPH and blindness (born w/ poor vision and developed vision loss progressively) who was admitted for diarrhea. Hemophilia A - factor VIII and factor VIII inhibitor labs ordered and pending - ok to switch to oral prednisone, observe overnight, discharge pending 09/12/2018 - will speak to Dr. Moscoso from [place] to retrieve further information Diarrhea - C. Diff, norovirus, cryptosporidium, and salmonella ordered and pending Patient case discussed with and plan approved by attending physician, Dr. Coker. Objective - Vital Signs/Intake and Output Vital Signs (last 24 hours): Temp Pulse Resp BP Pulse Ox 98.1 F 82 18 135/83 96 09/11/18 06:00 09/11/18 06:00 09/11/18 06:00 09/11/18 06:00 09/11/18 06:00 Intake and Output: 09/10/18 09/11/18 18:59 06:59 Intake Total 720 Output Total 1200 Balance -480 - Medications Medications: Current Medications Atorvastatin Calcium (Lipitor) 20 mg PO HS [facility] Last Admin: 09/10/18 21:58 Dose: 20 mg Finasteride (Proscar) 5 mg PO DAILY [facility] Last Admin: 09/10/18 10:25 Dose: 5 mg Sodium Chloride (Sodium Chloride 0.9%) 1,000 mls @ 50 mls/hr IV .Q20H [facility] Last Admin: 09/11/18 05:55 Dose: Not Given Insulin Human Regular (Humulin R Low) 0 units SC [facility]; Protocol Last Admin: 09/10/18 22:12 Dose: Not Given Lisinopril (Zestril) 5 mg PO DAILY [facility] Last Admin: 09/10/18 10:26 Dose: 5 mg Loperamide HCl (Imodium) 4 mg PO QID PRN PRN Reason: Diarrhea Last Admin: 09/10/18 14:49 Dose: 4 mg Methylprednisolone (Solu-Medrol) 40 mg IVP Q6H [facility] Last Admin: 09/11/18 03:42 Dose: 40 mg Ondansetron HCl (Zofran Inj) 4 mg IVP Q4H PRN PRN Reason: Nausea/Vomiting Last Admin: 09/10/18 12:57 Dose: 4 mg Pantoprazole Sodium (Protonix Ec Tab) 40 mg PO 0600 [facility] Last Admin: 09/11/18 05:54 Dose: 40 mg Sucralfate (Carafate Tab) 1 gm PO BID [facility] Last Admin: 09/10/18 17:57 Dose: 1 gm Tamsulosin HCl (Flomax) 0.4 mg PO DAILY [facility] Last Admin: 09/10/18 10:25 Dose: 0.4 mg - Labs Labs: 09/10/18 05:20 09/10/18 05:20 PT 12.9 SECONDS (9.4-12.5) H 09/10/18 05:20 INR 1.12 09/10/18 05:20 APTT 42.6 Seconds (25.1-36.5) H 09/10/18 05:20
[2018-09-11 07:43] LABS: GRAN # 12.13 (1.4-6.5); GRAN % 93.4 % (50.0-68.0); HEMOGLOBIN 13.9 g/dL (14.0-18.0); LYMPH # 0.8 (1.2-3.4); LYMPH % 5.9 % (22.0-35.0); MEAN CELL VOLUME 92.6 fl (80.0-105.0); MEAN CORPUSCULAR HEMOGLOBIN 31.2 pg (25.0-35.0); MEAN CORPUSCULAR HGB CONC 33.7 g/dl (31.0-37.0); MEAN PLATELET VOLUME 9.7 fl (7.0-11.0); MONO # 0.1 (0.1-0.6); MONO % 0.7 % (1.0-6.0); PLATELET COUNT 297 10^3/uL (120.0-450.0); RBC 4.46 10^6/uL (3.5-6.1)
[2018-09-11] MEDS: Insulin Reg-LOW-Coverage SC SCH ×2 (08:04→12:03)
[2018-09-11 08:16] LABS: ALB/GLOB RATIO 1.2 (1.1-1.8); ALBUMIN 3.5 g/dL (3.0-4.8); ALT/SGPT 34 U/L (7-56); AST/SGOT 40 U/L (17-59); BLOOD UREA NITROGEN 6 mg/dL (7-21); CALCIUM 8.7 mg/dL (8.4-10.5); GFR NON-AFRICAN AMERICAN > 60
[2018-09-11 08:17] LABS: BAND 4 % (0-2); LYMPHOCYTE 9 % (22.0-35.0); MONOCYTE 1 % (1.0-6.0); NEUTROPHIL 86 % (50.0-70.0); PLATELET ESTIMATE NORMAL (NORMAL)
[2018-09-11 12:20] VITALS: BP 116/67; PULSE 87; RESP 20
--- NOTE | 2018-09-11 14:19 | CP.PCM.DIS ---
<Arun Murphy - Last Filed: 09/11/18 14:16> Provider - Provider Date of Admission: 09/09/18 18:28 Attending physician: Keanu Dewitt MD Primary care physician: Dr. Rider Consults: Heme-onc: Sheela GI: Kalpesh Time Spent in preparation of Discharge (in minutes): 30 Diagnosis - Discharge Diagnosis (1) Black stools Status: Resolved Priority: Medium (2) Acquired hemophilia A Status: Chronic Priority: High (3) GI bleed Status: Suspected Priority: High (4) Anemia Status: Chronic Priority: Medium Hospital Course - Lab Results Lab Results: Most Recent Lab Values WBC 13.0 10^3/uL (4.5-11.0) H D 09/11/18 07:30 RBC 4.46 10^6/uL (3.5-6.1) 09/11/18 07:30 Hgb 13.9 g/dL (14.0-18.0) L 09/11/18 07:30 Hct 41.3 % (42.0-52.0) L 09/11/18 07:30 MCV 92.6 fl (80.0-105.0) 09/11/18 07:30 MCH 31.2 pg (25.0-35.0) 09/11/18 07:30 MCHC 33.7 g/dl (31.0-37.0) 09/11/18 07:30 RDW 14.0 % (11.5-14.5) 09/11/18 07:30 Plt Count 297 10^3/uL (120.0-450.0) 09/11/18 07:30 MPV 9.7 fl (7.0-11.0) 09/11/18 07:30 Gran % 93.4 % (50.0-68.0) H 09/11/18 07:30 Lymph % (Auto) 5.9 % (22.0-35.0) L 09/11/18 07:30 [place] % (Auto) 0.7 % (1.0-6.0) L 09/11/18 07:30 Eos % (Auto) 0.0 % (1.5-5.0) L 09/11/18 07:30 Baso % (Auto) 0.0 % (0.0-3.0) 09/11/18 07:30 Gran # 12.13 (1.4-6.5) H 09/11/18 07:30 Lymph # (Auto) 0.8 (1.2-3.4) L 09/11/18 07:30 [place] # (Auto) 0.1 (0.1-0.6) 09/11/18 07:30 Eos # (Auto) 0.0 (0.0-0.7) 09/11/18 07:30 Baso # (Auto) 0.00 K/mm3 (0.0-2.0) 09/11/18 07:30 Neutrophils % (Manual) 86 % (50.0-70.0) H 09/11/18 07:30 Band Neutrophils % 4 % (0-2) H 09/11/18 07:30 Lymphocytes % (Manual) 9 % (22.0-35.0) L 09/11/18 07:30 Monocytes % (Manual) 1 % (1.0-6.0) 09/11/18 07:30 Platelet Evaluation Normal (NORMAL) 09/11/18 07:30 PT 12.9 SECONDS (9.4-12.5) H 09/10/18 05:20 INR 1.12 09/10/18 05:20 APTT 42.6 Seconds (25.1-36.5) H 09/10/18 05:20 Sodium 138 mmol/L (132-148) 09/11/18 07:30 Potassium 4.6 mmol/L (3.6-5.0) 09/11/18 07:30 Chloride 107 mmol/L (98-107) 09/11/18 07:30 Carbon Dioxide 26 mmol/L (21-33) 09/11/18 07:30 Anion Gap 10 (10-20) 09/11/18 07:30 BUN 6 mg/dL (7-21) L 09/11/18 07:30 Creatinine 0.9 mg/dl (0.8-1.5) 09/11/18 07:30 Est GFR ( Amer) > 60 09/11/18 07:30 Est GFR (Non-Af Amer) > 60 09/11/18 07:30 POC Glucose (mg/dL) 231 mg/dL (65-110) H 09/11/18 11:19 Random Glucose 163 mg/dL (70-110) H 09/11/18 07:30 Calcium 8.7 mg/dL (8.4-10.5) 09/11/18 07:30 Total Bilirubin 0.4 mg/dL (0.2-1.3) 09/11/18 07:30 AST 40 U/L (17-59) 09/11/18 07:30 ALT 34 U/L (7-56) 09/11/18 07:30 Alkaline Phosphatase 67 U/L (38-126) 09/11/18 07:30 Total Protein 6.4 g/dL (5.8-8.3) 09/11/18 07:30 Albumin 3.5 g/dL (3.0-4.8) 09/11/18 07:30 Globulin 2.9 gm/dL 09/11/18 07:30 Albumin/Globulin Ratio 1.2 (1.1-1.8) 09/11/18 07:30 Blood Type O POSITIVE 09/09/18 17:25 Antibody Screen Negative 09/09/18 17:25 BBK History Checked Patient has bt 09/09/18 17:25 - Hospital Course Hospital Course: Discharge Summary for Dr. Dewitt service This is a 77 yo M with Hemophilia A, CAD s/p stents, HTN, partial blindness (R eye blind, L eye 50% reduction), acquired Hep A, and psoriasis who presented to [facility] with complaint of nausea, abdominal pain, diarrhea, and 2x black stools beginning 3 days prior (09/07). He was admitted for suspected lower GI bleed with hx of severe acquired Hemophilia A. While here, patient was seen by GI and Heme-onc. As per GI, no further melanotic stools or rectal bleeding reported, so safe to downgrade to daily PPI (from PPI drip) and no plans for colonoscopy. As per Heme-onc, patient was started on steroids for tx of inhibitor causing acquired Hemophilia A. Today, patient has no acute complaints. Admits to 4 episodes of loose stools yesterday, but reports that as per nurses, there was no blood with any of them. Denies any nausea, emesis, chest pain, shortness of breath, focal weakness. Patient was given prescription for Prednisone 40mg PO daily x5 days. He was told to fill the script and take as prescribed, to resume all other home medications, to use OTC imodium as needed for his diarrhea, and to follow up with his PMD (Dr. Rider, 1 week) and his [employer] (Dr. Moscoso, when scheduled) after discharge. Patient expressed understanding and agreement with these instructions. All questions answered to his satisfaction. Patient then discharged to home. Reviewed and discussed with attending, Dr. Dewitt. Discharge Exam - Head Exam Head Exam: ATRAUMATIC, NORMOCEPHALIC Discharge Plan - Discharge Medications Prescriptions: RX: predniSONE [predniSONE Tab] 40 mg PO DAILY #5 tab - Follow Up Plan Condition: STABLE Disposition: HOME/ ROUTINE Instructions: Hemophilia, Diarrhea in Adolescents and Adults, Gastrointestinal Bleeding (DC), Loperamide Additional Instructions: You were seen for your diarrhea and concern for black/bloody stools. Your blood counts have remained steady, and no bloody stools have been witnessed while you were here. Please resume your home medications as previously prescribed. You have been given a prescription for Prednisone (a steroid), to be taken daily for 5 days. Please follow up with your PMD (Dr. Rider) within 1 week. Please call your senior analytical chemist at [place] and follow up with him as he instructs. Present to the nearest Emergency Department if you experience worsening or newly concerning symptoms. Diet: Heart Healthy diet Patient stated he is up to date with regards to the flu and the pneumococcal vaccines. Referrals: Lexx Moscoso [Other] ([facility] [employer]) Tye Rider MD [Family Provider] - <Keanu Dewitt - Last Filed: 09/11/18 15:50> Provider - Provider Date of Admission: 09/09/18 18:28 Attending physician: Keanu Dewitt MD Hospital Course - Lab Results Lab Results: Most Recent Lab Values WBC 13.0 10^3/uL (4.5-11.0) H D 09/11/18 07:30 RBC 4.46 10^6/uL (3.5-6.1) 09/11/18 07:30 Hgb 13.9 g/dL (14.0-18.0) L 09/11/18 07:30 Hct 41.3 % (42.0-52.0) L 09/11/18 07:30 MCV 92.6 fl (80.0-105.0) 09/11/18 07:30 MCH 31.2 pg (25.0-35.0) 09/11/18 07:30 MCHC 33.7 g/dl (31.0-37.0) 09/11/18 07:30 RDW 14.0 % (11.5-14.5) 09/11/18 07:30 Plt Count 297 10^3/uL (120.0-450.0) 09/11/18 07:30 MPV 9.7 fl (7.0-11.0) 09/11/18 07:30 Gran % 93.4 % (50.0-68.0) H 09/11/18 07:30 Lymph % (Auto) 5.9 % (22.0-35.0) L 09/11/18 07:30 Dunn % (Auto) 0.7 % (1.0-6.0) L 09/11/18 07:30 Eos % (Auto) 0.0 % (1.5-5.0) L 09/11/18 07:30 Baso % (Auto) 0.0 % (0.0-3.0) 09/11/18 07:30 Gran # 12.13 (1.4-6.5) H 09/11/18 07:30 Lymph # (Auto) 0.8 (1.2-3.4) L 09/11/18 07:30 [place] # (Auto) 0.1 (0.1-0.6) 09/11/18 07:30 Eos # (Auto) 0.0 (0.0-0.7) 09/11/18 07:30 Baso # (Auto) 0.00 K/mm3 (0.0-2.0) 09/11/18 07:30 Neutrophils % (Manual) 86 % (50.0-70.0) H 09/11/18 07:30 Band Neutrophils % 4 % (0-2) H 09/11/18 07:30 Lymphocytes % (Manual) 9 % (22.0-35.0) L 09/11/18 07:30 Monocytes % (Manual) 1 % (1.0-6.0) 09/11/18 07:30 Platelet Evaluation Normal (NORMAL) 09/11/18 07:30 PT 12.9 SECONDS (9.4-12.5) H 09/10/18 05:20 INR 1.12 09/10/18 05:20 APTT 42.6 Seconds (25.1-36.5) H 09/10/18 05:20 Sodium 138 mmol/L (132-148) 09/11/18 07:30 Potassium 4.6 mmol/L (3.6-5.0) 09/11/18 07:30 Chloride 107 mmol/L (98-107) 09/11/18 07:30 Carbon Dioxide 26 mmol/L (21-33) 09/11/18 07:30 Anion Gap 10 (10-20) 09/11/18 07:30 BUN 6 mg/dL (7-21) L 09/11/18 07:30 Creatinine 0.9 mg/dl (0.8-1.5) 09/11/18 07:30 Est GFR ( Amer) > 60 09/11/18 07:30 Est GFR (Non-Af Amer) > 60 09/11/18 07:30 POC Glucose (mg/dL) 231 mg/dL (65-110) H 09/11/18 11:19 Random Glucose 163 mg/dL (70-110) H 09/11/18 07:30 Calcium 8.7 mg/dL (8.4-10.5) 09/11/18 07:30 Total Bilirubin 0.4 mg/dL (0.2-1.3) 09/11/18 07:30 AST 40 U/L (17-59) 09/11/18 07:30 ALT 34 U/L (7-56) 09/11/18 07:30 Alkaline Phosphatase 67 U/L (38-126) 09/11/18 07:30 Total Protein 6.4 g/dL (5.8-8.3) 09/11/18 07:30 Albumin 3.5 g/dL (3.0-4.8) 09/11/18 07:30 Globulin 2.9 gm/dL 09/11/18 07:30 Albumin/Globulin Ratio 1.2 (1.1-1.8) 09/11/18 07:30 Blood Type O POSITIVE 09/09/18 17:25 Antibody Screen Negative 09/09/18 17:25 BBK History Checked Patient has bt 09/09/18 17:25 - Hospital Course Hospital Course: Pt seen and examined. I have reviewed the note of the medical assistant float and agree with it. I have discussed the assessment and plan with the resident. I have reviewed the patient's labs and medications. Pt with acquired with Hemophilia A. PTT is well controlled. Heme following. No colonoscopy planned. Pt will f/u with Heme in [facility]. No new bleeding episodes.
--- NOTE | 2018-09-12 18:17 | PQF ---
PROVIDER RESPONSE TEXT: Acute blood loss causing anemia REVIEWER QUERY TEXT: Anemia Type Anemia is documented in the Medical Record. Please specify the cause (includes suspected or probable cause) Such as: -- Due to acute blood loss -- Due to chronic blood loss -- Due to iron deficiency -- Due to postoperative blood loss -- Due to chronic disease -- Other, please specify The patient's Clinical Indicators include: Anemia and GI hemorrhage are documented. Any relationship between the two? Thank you. Query created by: Yoana Sheppard on 09/12/2018 2:34 PM Electronically signed by: Keanu Dewitt MD 09/12/2018 6:14 PM
== END 2018-09-11 16:36 | disposition home or self-care (01) | DRG 812 ==
LOC: ED 15:21 → ERH 18:28 → 2RNO 20:32
PROVIDERS: ADMIT Internal Medicine Nephrology; ATTEND Internal Medicine Nephrology
DX: D62 Acute posthemorrhagic anemia (principal); D68.311 Acquired hemophilia; K92.2 Gastrointestinal hemorrhage, unspecified; B15.9 Hepatitis A without hepatic coma; K21.9 Gastro-esophageal reflux disease without esophagitis; I10 Essential (primary) hypertension; Z95.5 Presence of coronary angioplasty implant and graft; Z79.899 Other long term (current) drug therapy; M48.00 Spinal stenosis, site unspecified; M47.9 Spondylosis, unspecified; I45.10 Unspecified right bundle-branch block; N40.0 Benign prostatic hyperplasia without lower urinary tract symptoms; E78.5 Hyperlipidemia, unspecified; H54.3 Unqualified visual loss, both eyes; I25.10 Atherosclerotic heart disease of native coronary artery without angina pectoris; L40.9 Psoriasis, unspecified; N28.1 Cyst of kidney, acquired; Z83.3 Family history of diabetes mellitus; Z86.010 Personal history of colon polyps; Z87.19 Personal history of other diseases of the digestive system; Z87.442 Personal history of urinary calculi